=== PATIENT | male | born 1955 | race Caucasian/White ===

== ENCOUNTER 2023-05-08 21:26 | Outpatient (CLI) | payer MEDICARE, SELFPAY | END 2023-05-08 23:59 | LOC: LAB.DROPOF 21:28 | PROVIDERS: PCP Student in an Organized Health Care Education/Training Program; Visit Provider Student in an Organized Health Care Education/Training Program | DX: J02.9 Acute pharyngitis, unspecified (principal) | CPT/HCPCS: 87070 ==

== ENCOUNTER 2023-07-23 10:24 | Emergency (ER) | payer MEDICARE, SELFPAY ==
--- NOTE | 2023-07-23 10:26 | XR_ITS ---
FINAL REPORT CLINICAL HISTORY: fall FINDINGS: Left knee Three views were obtained. There is no acute fracture or dislocation. There is moderate narrowing of the medial compartment joint space. Small osteophytes are seen along the undersurface of the patella. There is a moderate to large joint effusion. IMPRESSION: Degenerative changes as detailed above. Moderate to large joint effusion. Reviewed, Interpreted and Dictated by Ronny Peter MD Transcribed by Nikki Sanford Authenticated and [facility]
[2023-07-23 11:35] VITALS: BP 141/83; PULSE 89; RESP 19; TEMP 36.7; O2SAT 98; BMI 35.6
--- NOTE | 2023-07-23 11:53 | EXP.UTC ---
Discharge Plan Disposition Patient Disposition: Home, Self-Care Condition: Good Prescriptions Prescriptions: No Action atorvastatin 80 mg tablet 80 mg PO DAILY Farxiga 10 mg tablet 10 mg PO DAILY carvedilol 12.5 mg tablet 12.5 mg PO BID metformin 1,000 mg tablet 1,000 mg PO BID Eliquis 5 mg tablet 5 mg PO DAILY Entresto 24-26 mg tablet 1 tab PO BID furosemide 20 mg tablet 20 mg PO DAILY dofetilide [Tikosyn] 125 mcg Capsule 125 mcg PO Q12H aspirin 81 mg Tablet,Chewable 81 mg PO DAILY Referrals Follow up/Referrals: Teo Yoo MD [Primary Care Provider] - See instructions Art Power DO [Staff Physician] - See instructions (Call office for appointment) Activity Restrictions/Add. Instructions Additional Instructions/Restrictions: *weight bearing as tolerated *RICE, Rest the extremity, Ice 15-20 minutes 3-4 times daily, Compress- wear the topher wrap as discussed as much as possible to help reduce swelling and pain, Elevate the extremity when at rest *Topher wrap is for support and help control swelling, use it except in the shower. Be sure that is not to tight but not to loose either *Elevate when resting? *Tylenol if you can take it for pain Immediately follow up with your family doctor for new or worsening of symptoms, or no noticeable improvement over the next 3-5 days Call Orthopedic office and make appointment Clinical Impressions Clinical Impression: Effusion of knee Instructions Patient Instructions: DI for Knee Effusion, How to Apply an Topher Wrap Discharge ED Provider: Shelbie Lizarraga [facility] General Stated complaint: AO-Pain and swelling in L knee Mode of Arrival: Ambulatory Source of Information: Patient and Spouse Limitations: No Limitations Time Seen by Provider: 07/23/23 11:40 Description of Symptoms (Recalled from Triage Doc. by RN): PATIENT C/O INJURY TO LEFT KNEE AFTER FALLING 2 DAYS AGO HEENT Symptoms (Recalled from RN notes): No Resp Symptoms (Recalled from RN notes): No Skin Symptoms (Recalled from RN notes): No MS Symptoms (Recalled from RN notes): Yes Functional Status (Recalled from RN notes): WNL History of Present Illness Provider Complaint: Patient states that he was stacking rocks on a rock wall a couple days ago when one of the rocks he was standing on rolled and he fell and twisted his left knee States since then he has been having pain and swelling in the knee so today when it wasnt any better he came in to get it checked Related Data Home Medications Medication Instructions Recorded Confirmed apixaban 5 mg tablet (Eliquis) 5 mg PO DAILY 05/08/23 07/23/23 atorvastatin 80 mg tablet 80 mg PO DAILY 05/08/23 07/23/23 carvedilol 12.5 mg tablet 12.5 mg PO BID 05/08/23 07/23/23 dapagliflozin propanediol 10 mg 10 mg PO DAILY 05/08/23 07/23/23 tablet (Farxiga) furosemide 20 mg tablet 20 mg PO DAILY 05/08/23 07/23/23 metformin 1,000 mg tablet 1,000 mg PO BID 05/08/23 07/23/23 sacubitril 24 mg-valsartan 26 mg 1 tab PO BID 05/08/23 07/23/23 tablet (Entresto) aspirin 81 mg chewable tablet 81 mg PO DAILY 07/23/23 07/23/23 dofetilide 125 mcg capsule 125 mcg PO Q12H 07/23/23 07/23/23 (Tikosyn) Allergies Allergy/AdvReac Type Severity Reaction Status Date / Time No Known Allergies Allergy Verified 05/08/23 11:27 Worker's Comp Is this a Worker's Comp case?: No [facility] Disclaimer: The information contained in this section may have been updated after the patient was seen, as this information can be updated by other users. Medical History (Updated 07/23/23 @ 11:59 by Shelbie Lizarraga APRN) Hyperlipidemia Hypertension Surgical History (Updated 05/08/23 @ 11:29 by Tiam Owens) No significant past surgical history Family History (Updated 05/08/23 @ 11:29 by Tima Owens) Other No significant family history Social History (Updated 05/08/23 @ 11:30 by Tima Owens) Smoking Status: Unknown if ever smoked alcohol intake: never current occupational status: retired Travel in the last 8 weeks: None ROS Obtained: Yes All systems reviewed & no additional complaints except as documented and Yes Systems reviewed as appropriate & no additional complaints except as documented Constitutional Constitutional: Reports system reviewed and no additional complaints, except as documented and Reports as per HPI ENT Ears, Nose, Mouth, and Throat: Reports system reviewed and no additional complaints, except as documented and Reports as per HPI Cardiovascular Cardiovascular: Reports system reviewed and no additional complaints, except as documented and Reports as per HPI Respiratory Respiratory: Reports system reviewed and no additional complaints, except as documented and Reports as per HPI Musculoskeletal Musculoskeletal: Reports system reviewed and no additional complaints, except as documented, Reports as per HPI and Reports other Comments: Pain and swelling in left knee Physical Exam General General appearance: alert and in no apparent distress ENT ENT exam: Present mucous membranes moist Respiratory Respiratory exam: Present normal lung sounds bilaterally; Absent respiratory distress or wheezes Cardiovascular Cardiovascular exam: Present regular rate, normal rhythm and normal heart sounds Expanded Lower Extremity Exam Left: Knee exam: Present tenderness and swelling; Absent abrasion, laceration, ecchymosis or erythema Lower leg exam: Present normal inspection Ankle exam: Present normal inspection Gait: observed and limited by pain Neurological Exam Neurological exam: Present alert, oriented X3 and normal gait Medical Decision Making Alphonso Inquiry Pt receiving controlled substance: No Alphonso was queried for this patient: No Vital Signs: 07/23/23 11:35 Temperature 98.0 F Temperature Source Oral Pulse Rate [Left Brachial] 89 Respiratory Rate 19 Blood Pressure [Left Arm] 141/83 H Blood Pressure Mean [Left Arm] 102 Blood Pressure Source [Left Arm] Automatic Cuff Blood Pressure Position [Left Arm] Sitting 02 Sat by Pulse Oximetry 98 Oxygen Delivery Method Room Air Orders (Tests/Meds): ORDERS Category Date Time Status XR knee LT 3V Stat Exams 07/23/23 10:26 Taken Radiology Data #1: Image(s): Knee Image Reviewed: Yes I have reviewed radiologist's interpretation no acute fracture or dislocation, moderate to large joint effusion
[2023-07-23 11:58] VITALS: BP 141/83; PULSE 89; RESP 19; TEMP 36.7; O2SAT 98
== END 2023-07-23 12:01 | disposition home or self-care (01) ==
PROVIDERS: Emergency Provider Nurse Practitioner; PCP Pediatrics
DX: M25.562 Pain in left knee (principal); M25.462 Effusion, left knee; I10 Essential (primary) hypertension; E78.5 Hyperlipidemia, unspecified; W01.10XA Fall on same level from slipping, tripping and stumbling with subsequent striking against unspecified object, initial encounter
CPT/HCPCS: 73562; 99204; 99212; G0463

== ENCOUNTER 2024-04-14 11:39 | Outpatient (CLI) | payer MEDICARE, SELFPAY ==
[2024-04-14 17:56] LABS: Coronavirus 19, PCR Not Detected (NotDetected); Human Rhinovirus Not Detected (NotDetected); Influenza A, PCR Not Detected (NotDetected); Influenza B, PCR Not Detected (NotDetected); Respiratory Syncytial Virus Not Detected (NotDetected)
== END 2024-04-14 23:59 | disposition home or self-care (01) ==
LOC: LAB.DROPOF 04-16 09:53
PROVIDERS: PCP Nurse Practitioner Family; Visit Provider Nurse Practitioner Family
DX: Z20.828 Contact with and (suspected) exposure to other viral communicable diseases (principal)
CPT/HCPCS: 87631

== ENCOUNTER 2024-12-23 17:00 | Outpatient (RCR) | payer MEDICARE, SELFPAY | END 2024-12-28 23:59 | disposition home or self-care (01) | LOC: PT 17:00 | PROVIDERS: PCP Nurse Practitioner Family; Visit Provider Physician Assistant | DX: Z47.89 Encounter for other orthopedic aftercare (principal); Z96.652 Presence of left artificial knee joint | CPT/HCPCS: 97110; 97162 ==

== ENCOUNTER 2025-02-02 13:49 | Outpatient (CLI) | payer MEDICARE, SELFPAY ==
--- OUTSIDE RECORDS SUMMARY | 2024-12-01 03:00 | XMS_ITS | Encounter Summary ---
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 Name Role Phone Teo Yoo MD Primary Care Provider [phone] Reason for Visit * Reason Comments Pacemaker /ICD Home Monitoring Encounter Details Date Type Department Care Team (Late st Contact Info) Description 12/01/2024 3:00 AM EDT Clinical Support [facility] Electrophysiology [address] [place] [address] Kendall Malik MD [address] [facility] [address] [place] [address] Encounter for adjustment or management of cardiac device (Primary Dx); Chronic systolic congestive heart failure (HCC); Ischemic cardiomyopathy; PAF (paroxysmal atrial fibrillation) (HCC); AICD (automatic cardioverter/defibr illator) present Social History Tobacco Use Types Packs/Day Years Used Date Smoking Tobacco: Never Smokeless Tobacco: Never Alcohol Use Standard Drinks/Week Comments Not Currently 0 (1 standard drink = 0.6 oz pur e alcohol) PRAPARE - Transportation Answer Date Re corded In the past 12 months, has l ack of transportation kept you from medical appointments or from getting medications? No 05/15/2023 Lack of Transportation (Non-Medical) Not on file 05/15/2023 Utilities Answer Date Recorded In the past 12 months, has t he electric, gas, oil, or water company threatened to shut off services in your home? No 10/06/2024 Interpersonal Safety Answer Date Record ed How often does anyone, howard jiménez family and friends, physically hurt you? Never 10/06/2024 How often does anyone, howard jiménez family and friends, insult or talk down to you? Never 10/06/2024 How often does anyone, howard jiménez family and friends, threaten you with harm? Never 10/06/2024 How often does anyone, howard jiménez family and friends, scream or curse at you? Never 10/06/2024 Housing Stability Answer Date Recorded What is your living situation today? I have a [facility] place to live 10/06/[address] you li ve. Do you have problems with any of the following? None of the above 10/06/2024 Food Insecurity Answer Date Recorded Within the past 12 months, y ou worried that your food would run out before you got money to buy more. Never true 10/06/2024 Within the past 12 months, will he food you bought just didn't last and you didn't have money to get more. Never true 10/06/2024 Transportation Needs Answer Date Record ed In the past 12 months, has l ack of reliable transportation kept you from medical appointments, meetings, work or from getting things needed for daily living? No 10/06/2024 Financial Resource Strain Answer Date R ecorded How hard is it for you to pa y for the very basics like food, housing, medical care, and heating? Would you say it is: Not hard at all 10/06/2024 Employment Answer Date Recorded Do you want help finding or keeping work or a job? I do not need or want help 10/06/2024 Family and Community Support Answer Arvin e Recorded If for any reason you need h elp with day-to-day activities such as bathing, preparing meals, shopping, managing finances, etc., do you get the help you need? I don't need any help 10/06/2024 Feeling Lonely or Isolated 0 10/06 Educational Attainment Answer Date Ok rded Do you speak a language other than [place] at [facility]? No 10/06/2024 Do you want help with school or training? For example, starting or completing job training or getting a high school diploma, GED or equivalent. No 10/06/2024 Physical Activity Answer Date Recorded Number of minutes of exercise per week 0 10/06/2024 Substance Use Answer Date Recorded How many times in the past y ear have you used prescription drugs for non-medical reasons? Never 10/06/2024 How many times in the past year have you used [place] legal drugs? Never 10/06/2024 Mental Health Answer Date Recorded Calculation of above two rows 0 Sex and Gender Information Value Date Recorded Sex Assigned at Not on file Legal Sex Male 1:10 PM CDT Gender Identity Not on file Sexual Orientation Not on file documented as of this encounter Plan of Treatment Upcoming Encounters Date Type Department Care Team (Late st Contact Info) Description 02/08/2025 1:45 PM EST Office Visit [facility] Cardiology [address] [place], [place] [phone] Christina Almonte MD [address] [place], [place] [phone] 04/05/2025 12:30 PM EST Office Visit [facility] Electrophysiology [address] [place], [place] [phone] Kendall Malik MD [address] [place] [address] [address] [place] [address] documented as of this encounter Visit Diagnoses Diagnosis Encounter for adjustment or management of cardiac device- Primary Chronic systolic congestive heart failure (HCC) Ischemic cardiomyopathy Other specified forms of chronic ischemic heart disease PAF (paroxysmal atrial fibrillation) ([facility]) Atrial fibrillation AICD (automatic cardioverter/defibrillator) present Automatic implantable cardiac defibrillator in situ PAF (paroxysmal atrial fibrillation) ([facility])- Primary Atrial fibrillation Ischemic cardiomyopathy Other specified forms of chronic ischemic heart disease Primary hypertension Unspecified essential hypertension CVA (cerebral vascular accident) ([facility]) Unspecified cerebral artery occlusion with cerebral infarction Chronic systolic congestive heart failure (HCC) CAD (coronary artery disease) Coronary atherosclerosis of unspecified type of vessel, [place] or graft Type 2 diabetes mellitus ([facility]) QT prolongation History of DVT (deep vein thrombosis) AICD (automatic cardioverter/defibrillator) present Automatic implantable cardiac defibrillator in situ documented in this encounter Care Teams Knurling Machine Operator Relationship Specialty Start Date End Date Teo Yoo MD [address] [place] [address] [address] [place] [address] PCP - General General Internal Medicine 02/06/22 documented as of this encounter
--- OUTSIDE RECORDS SUMMARY | 2025-01-28 10:07 | XMS_ITS | Continuity of Care Document ---
Author Organization [facility] Phone Care Team Providers Care Front Man Name Role Phone AKBAR SANTACRUZ Admitting AKBAR SANTACRUZ Primary Attending [place] MO[place] Primary Care [place] Unavailable ALLERGIES AND ADVERSE REACTIONS ALLERGIES AND ADVERSE REACTIONS Code System Allergy Substance Adverse Reaction Date Reaction (Severity) Comment Status Reported By Updated By No Known Allergies [id number] on January 25, 2025 11:01:51 PM UTC ASSESSMENTS Blurring of visual image ; FAMILY HISTORY RELATION: Father Status: Cause of : Unknown Age at : Unknown SNOMED-CT Diagnosis Age At Onset [id number] Heart disease RELATION: Mother Status: Cause of : Unknown Age at : Unknown SNOMED-CT Diagnosis Age At Onset [id number] Heart disease PROBLEMS PATIENT PROBLEMS Code Description/Comments Category Status Upda olman By [id number] Blurring of visual image active [id number] on January 26, 2025 10:33:00 AM UTC RESULTS Patient: BALWINDER Camara Date of : 1955 LABORATORY RESULTS ORDER 100: GLUCOSE BEDSIDE T ESTING (LOINC: 66060-8) ORDER DATE: January 25, 2025 4:31:00 PM UTC Specimen Source: WHOLE BLOOD Specimen Type: Whole blood s ample PERFORMING LAB: [address] [id number] Result Comment: January 25, 2025 4:36:00 PM UTC Test performed by: [id number] ; Instrument: [id number] Final Result Date: January 25, 2025 4:36:00 PM UTC LOINC TEST FLAG RESULT [place] [address]-7 Glucose [Mass/volume] in Capillary blood by Glucometer N 97 mg/dl 70 mg/dl - 105 mg/dl January 25, 2025 4:36:00 PM UTC ORDER 200: CBC AUTO W DIFF ( LOINC: 86163-3) ORDER DATE: January 25, 2025 4:36:00 PM UTC Specimen Source: EDTA Specimen Type: Blood specime n with EDTA PERFORMING LAB: [address] [id number] Result Comment: Final Result Date: January 25, 2025 4:45:00 PM UTC (TECH: ADB) LOINC TEST FLAG RESULT REFERENCE RANGE UPDA OLMAN BY 6690-2 Leukocytes [#/volume] in Blood by Automated count N 9.0 K/ul 4.0 K/ul - 10.5 K/ul January 25, 2025 4:45:00 PM UTC (TECH: ADB) 789-8 Erythrocytes [#/volume] in Blood by Automated count N 5.2 M/mm3 4.7 M/mm3 - 6.1 M/mm3 January 25, 2025 4:45:00 PM UTC (TECH: ADB) 718-7 Hemoglobin [Mass/volume] in Blood N 15.2 gm/dl 13.5 gm/dl - 18.0 gm/dl January 25, 2025 4:45:00 PM UTC (TECH: ADB) 41261-5 Hematocrit [Volume Fraction] of Blood N 47.9 % 42.0 % - 52.0 % January 25, 2025 4:45:00 PM UTC (TECH: ADB) 787-2 Erythrocyte mean corpuscular volume [Entitic volume] by Automated count N 92.5 fl 78 fl - 100 fl January 25, 2025 4:45:00 PM UTC (TECH: ADB) 785-6 Erythrocyte mean corpuscular hemoglobin [Entitic mass] by Automated count N 29.3 pg 27 pg - 31 pg January 25, 2025 4:45:00 PM UTC (TECH: ADB) 786-4 Erythrocyte mean corpuscular hemoglobin concentration [Mass/volume] by Automated count L 31.7 g/dl 32 g/dl - 36 g/dl January 25, 2025 4:45:00 PM UTC (TECH: ADB) 84189-7 Erythrocyte distribution width [Ratio] N 12.7 % 11.5 % - 14.0 % January 25, 2025 4:45:00 PM UTC (TECH: ADB) 777-3 Platelets [#/volume] in Blood by Automated count N 184 K/ul 150 K/ul - 450 K/ul January 25, 2025 4:45:00 PM UTC (TECH: ADB) 86779-7 Platelet mean volume [Entitic volume] in Blood by Automated count H 10.0 fl 6 fl - 9.5 fl January 25, 2025 4:45:00 PM UTC (TECH: ADB) 09152-7 Neutrophils/100 leukocytes in Blood H 75.0 % 43 % - 65 % January 25, 2025 4:45:00 PM UTC (TECH: ADB) 736-9 Lymphocytes/100 leukocytes in Blood by Automated count L 15.3 % 20.5 % - 45.5 % January 25, 2025 4:45:00 PM UTC (TECH: ADB) 5905-5 Monocytes/100 leukocytes in Blood by Automated count N 7.8 % 5.5 % - 11.7 % January 25, 2025 4:45:00 PM UTC (TECH: ADB) 713-8 Eosinophils/100 leukocytes in Blood by Automated count N 1.3 % 0.9 % - 2.9 % January 25, 2025 4:45:00 PM UTC (TECH: ADB) 706-2 Basophils/100 leukocytes in Blood by Automated count N 0.3 % 0.2 % - 1.0 % January 25, 2025 4:45:00 PM UTC (TECH: ADB) 07352-6 Immature granulocytes/100 leukocytes in Blood by Automated count N 0.3 % 0.0 % - 0.8 % January 25, 2025 4:45:00 PM UTC (TECH: ADB) 63730-6 Nucleated cells [#/volume] in Blood N 0.0 % January 25, 2025 4:45:00 PM UTC (TECH: ADB) 07936-0 Neutrophils [#/volume] in Blood H 6.8 K/uL 2.2 K/uL - 4.8 K/uL January 25, 2025 4:45:00 PM UTC (TECH: ADB) 731-0 Lymphocytes [#/volume] in Blood by Automated count N 1.4 CELL/MCL 1.3 CELL/MCL - 2.9 CELL/MCL January 25, 2025 4:45:00 PM UTC (TECH: ADB) 742-7 Monocytes [#/volume] in Blood by Automated count N 0.7 CELL/MCL 0.3 CELL/MCL - 0.8 CELL/MCL January 25, 2025 4:45:00 PM UTC (TECH: ADB) 711-2 Eosinophils [#/volume] in Blood by Automated count N 0.1 CELL/MCL 0 CELL/MCL - 0.2 CELL/MCL January 25, 2025 4:45:00 PM UTC (TECH: ADB) 704-7 Basophils [#/volume] in Blood by Automated count N 0.0 CELL/MCL 0.0 CELL/MCL - 1.0 CELL/MCL January 25, 2025 4:45:00 PM UTC (TECH: ADB) 32185-1 Immature granulocytes [#/volume] in Blood N 0.03 K/ul January 25, 2025 4:45:00 PM UTC (TECH: ADB) 49817-0 Nucleated cells [#/volume] in Blood N 0.00 K/uL January 25, 2025 4:45:00 PM UTC (TECH: ADB) 89707-2 Manual Differential panel - Blood N NO January 25, 2025 4:45:00 PM UTC (TECH: ADB) ORDER 300: COMP METABOLIC PA BRITTNEY (LOINC: 87895-1) ORDER DATE: January 25, 2025 4:36:00 PM UTC Specimen Source: PLASMA Specimen Type: Plasma specim en PERFORMING LAB: [address] [id number] Result Comment: Final Result Date: January 25, 2025 5:01:00 PM UTC (TECH: TGD) LOINC TEST FLAG RESULT REFERENCE RANGE UPDA OLMAN BY 2951-2 Sodium [Moles/volume ] in Serum or Plasma N 140 mmol/L 136 mmol/L - 145 mmol/L January 25, 2025 4:54:00 PM UTC (TECH: TGD) 2823-3 Potassium [Moles/volume] in Serum or Plasma N 4.6 mmol/L 3.6 mmol/L - 5.0 mmol/L January 25, 2025 4:54:00 PM UTC (TECH: TGD) 2075-0 Chloride [Moles/volume] in Serum or Plasma N 103 mmol/L 98 mmol/L - 107 mmol/L January 25, 2025 4:54:00 PM UTC (TECH: TGD) 2027-9 Carbon dioxide, tota l [Moles/volume] in Serum or Plasma N 30.0 mmol/L 21.0 mmol/L - 32.0 mmol/L January 25, 2025 4:54:00 PM UTC (TECH: TGD) 00117-9 Anion gap in Blood N 11.6 O ct2024 4:54:00 PM UTC (TECH: TGD) 2345-7 Glucose [Mass/volume ] in Serum or Plasma N 101 mg/dl 70 mg/dl - 120 mg/dl January 25, 2025 4:54:00 PM UTC (TECH: TGD) 6299-2 Urea nitrogen [Mass/volume] in Blood N 15 mg/dL 7 mg/dL - 18 mg/dL January 25, 2025 4:54:00 PM UTC (TECH: TGD) 09962-4 Creatinine [Moles/volume] in Blood N 0.8 mg/dL 0.6 mg/dL - 1.3 mg/dL January 25, 2025 4:54:00 PM UTC (TECH: TGD) 96977-6 Glomerular filtratio n rate/1.73 sq M.predicted by Creatinine-based formula (MDRD) N 95 mlpermin 60 mlpermin January 25, 2025 4:54:00 PM UTC (TECH: TGD) 85441-6 Osmolality of Serum or Plasma by calculated by sum of electrolytes N 292 mosm/kg 275 mosm/kg - 301 mosm/kg January 25, 2025 4:54:00 PM UTC (TECH: TGD) 6145-2 Protein [Mass/volume ] in Serum or Plasma N 7.3 g/dl 6.4 g/dl - 8.2 g/dl January 25, 2025 5:01:00 PM UTC (TECH: TGD) 1751-7 Albumin [Mass/volume ] in Serum or Plasma N 3.9 g/dl 3.4 g/dl - 5.0 g/dl January 25, 2025 5:01:00 PM UTC (TECH: TGD) 2336-6 Globulin [Mass/volum e] in Serum N 3.4 January 25, 2025 5:01:00 PM UTC (TECH: TGD) 1759-0 Albumin/Globulin [Ma ss Ratio] in Serum or Plasma N 1.1 0.7 - 2 January 25, 2025 5:01:00 PM UTC (TECH: TGD) 43766-1 Calcium [Mass/volume ] in Serum or Plasma N 9.2 mg/dl 8.5 mg/dl - 10.5 mg/dl January 25, 2025 4:54:00 PM UT (TECH: TGD) 1975-2 Bilirubin.total [Mass/volume] in Serum or Plasma N 0.90 mg/dL 0.10 mg/dL - 1.00 mg/dL January 25, 2025 5:01:00 PM UT (TECH: TGD) 1920-8 Aspartate aminotransferase [Enzymatic activity/volume] in Serum or Plasma N 16 U/L 0 U/L - 37 U/L January 25, 2025 5:01:00 PM UT (TECH: TGD) 1742-6 Alanine aminotransferase [Enzymatic activity/volume] in Serum or Plasma N 26 U/L 0 U/L - 65 U/L January 25, 2025 5:01:00 PM UT (TECH: TGD) 6768-6 Alkaline phosphatase [Enzymatic activity/volume] in Serum or Plasma N 71 U/L 46 U/L - 116 U/L January 25, 2025 5:01:00 PM UT (TECH: TGD) ORDER 400: PT PROTHROMBIN TI ME W INR (LOINC: 68478-1) ORDER DATE: January 25, 2025 4:36:00 PM UT Specimen Source: PLASMA Specimen Type: Plasma specim en PERFORMING LAB: [address] [id number] Result Comment: Final Result Date: January 25, 2025 5:07:00 PM UT (TECH: PP) LOINC TEST FLAG RESULT [place] [address]-2 INR in Platelet poor plasma or blood by Coagulation assay H 13.0 SECONDS 9.3 SECONDS - 11.4 SECONDS January 25, 2025 5:07:00 PM UTC (TECH: PP) 6301-6 INR in Platelet poor plasma by Coagulation assay H 1.3 Ratio 0.97 Ratio - 1.05 Ratio January 25, 2025 5:07:00 PM UTC (TECH: PP) ORDER 500: PTT PARTIAL THROM B TIME (LOINC: 3173-2) ORDER DATE: January 25, 2025 4:36:00 PM UTC Specimen Source: PLASMA Specimen Type: Plasma specim en PERFORMING LAB: [address] [id number] Result Comment: Final Result Date: January 25, 2025 5:07:00 PM UTC (TECH: PP) LOINC TEST FLAG RESULT REFERENCE RANGE UPDA OLMAN BY 3173-2 Activated partial thromboplastin time (aPTT) in Blood by Coagulation assay N 32.5 SECONDS 24.5 SECONDS - 32.8 SECONDS January 25, 2025 5:07:00 PM UTC (TECH: PP) ORDER 1000: URINALYSIS REFLE X MICROSCOPIC (LOINC: 42026-9) ORDER DATE: January 25, 2025 4:36:00 PM UTC Specimen Source: URINE Specimen Type: Urine specime n PERFORMING LAB: [address] [id number] Result Comment: Final Result Date: January 25, 2025 7:26:00 PM UTC (TECH: ADB) LOINC TEST FLAG RESULT REFERENCE RANGE UPDA OLMAN BY 5778-6 Color of Urine N YELLOW YELLOW Octob 2024 7:26:00 PM UTC (TECH: ADB) 5767-9 Appearance of Urine N CLEAR CLEAR January 25, 2025 7:26:00 PM UTC (TECH: ADB) 5792-7 Glucose [Mass/volume] in Urine by Test strip 1000 NORMAL January 25, 2025 7:26:00 PM UTC (TECH: ADB) 61979-0 Bilirubin.total [Mass/volume] in Urine by Automated test strip N NEGATIVE NEGATIVE January 25, 2025 7:26:00 PM UTC (TECH: ADB) 5797-6 Ketones [Mass/volume] in Urine by Test strip N NEGATIVE NEGATIVE January 25, 2025 7:26:00 PM UTC (TECH: ADB) 2965-2 Specific gravity of Urine L 1.015 1.016 - 1.022 January 25, 2025 7:26:00 PM UTC (TECH: ADB) 34982-9 Erythrocytes [#/volume] in Urine by Automated test strip N NEGATIVE NEGATIVE January 25, 2025 7:26:00 PM UTC (TECH: ADB) 77274-2 pH of Urine by Automated test strip N 5 5 - 9 January 25, 2025 7:26:00 PM UTC (TECH: ADB) 61588-9 Protein [Presence] in Urine by Test strip N TNP NEGATIVE January 25, 2025 7:26:00 PM UTC (TECH: ADB) 21081-2 Urobilinogen [Mass/volume] in Urine by Automated test strip N norm NORMAL January 25, 2025 7:26:00 PM UTC (TECH: ADB) 74018-6 Nitrate [Presence] in Urine N NEGATIVE NEGATIVE January 25, 2025 7:26:00 PM UTC (TECH: ADB) 61594-2 Leukocytes [#/volume] in Urine by Test strip N NEGATIVE NEGATIVE January 25, 2025 7:26:00 PM UTC (TECH: ADB) 66161-4 Urinalysis dipstick W Reflex Culture panel - Urine N NO January 25, 2025 7:26:00 PM UTC (TECH: ADB) 52258-0 Erythrocytes [#/area] in Urine sediment by Microscopy high power field N NONE SEEN NONE SEEN January 25, 2025 7:26:00 PM UTC (TECH: ADB) 5821-4 Leukocytes [#/area] in Urine sediment by Microscopy high power field N NONE SEEN NONE SEEN January 25, 2025 7:26:00 PM UTC (TECH: ADB) 77743-4 Epithelial cells.squamous [#/area] in Urine sediment by Microscopy high power field N 1-5 NONE SEEN January 25, 2025 7:26:00 PM UTC (TECH: ADB) ORDER 1400: SED RATE (LOINC: 4537-7) ORDER DATE: January 25, 2025 6:42:00 PM UTC Specimen Source: EDTA Specimen Type: Blood specime n with EDTA PERFORMING LAB: [address] [id number] Result Comment: Final Result Date: January 25, 2025 8:03:00 PM UTC (TECH: ADB) LOINC TEST FLAG RESULT REFERENCE RANGE UPDA OLMAN BY 4537-7 Erythrocyte sedimentation rate by Westergren method N 2 0 - 15 January 25 8:03:00 PM UTC (TECH: ADB) ORDER 1500: C-REACTIVE PROTE IN CRP (LOINC: 1987-08) ORDER DATE: January 25, 2025 6:42:00 PM UTC Specimen Source: PLASMA Specimen Type: Plasma specim en PERFORMING LAB: [address] [id number] Result Comment: Final Result Date: January 25, 2025 7:14:00 PM UTC (TECH: KAC) LOINC TEST FLAG RESULT REFERENCE RANGE UPDA OLMAN BY 1987- C reactive protein [Mass/volume] in Serum or Plasma N <0.2 mg/dL 0.05 mg/dL - 0.300 mg/dL January 25, 2025 7:14:00 PM UTC (TECH: KAC) ORDER 2800: CBC AUTO W DIFF (LOINC: 85687-8) ORDER DATE: January 25, 2025 8:33:00 PM UTC Specimen Source: EDTA Specimen Type: Blood specime n with EDTA PERFORMING LAB: [address] [id number] Result Comment: Final Result Date: January 26, 2025 9:16:00 AM UTC (TECH: AAC) LOINC TEST FLAG RESULT REFERENCE RANGE UPDA OLMAN BY 6690-2 Leukocytes [#/volume] in Blood by Automated count N 5.5 K/ul 4.0 K/ul - 10.5 K/ul January 26, 2025 9:16:00 AM UTC (TECH: AAC) 789-8 Erythrocytes [#/volume] in Blood by Automated count N 5.0 M/mm3 4.7 M/mm3 - 6.1 M/mm3 January 26, 2025 9:16:00 AM UTC (TECH: AAC) 718-7 Hemoglobin [Mass/volume] in Blood N 14.5 gm/dl 13.5 gm/dl - 18.0 gm/dl January 26, 2025 9:16:00 AM UTC (TECH: AAC) 33843-6 Hematocrit [Volume Fraction] of Blood N 45.2 % 42.0 % - 52.0 % January 26, 2025 9:16:00 AM UTC (TECH: AAC) 787-2 Erythrocyte mean corpuscular volume [Entitic volume] by Automated count N 91.1 fl 78 fl - 100 fl January 26, 2025 9:16:00 AM UTC (TECH: AAC) 785-6 Erythrocyte mean corpuscular hemoglobin [Entitic mass] by Automated count N 29.2 pg 27 pg - 31 pg January 26, 2025 9:16:00 AM UTC (TECH: AAC) 786-4 Erythrocyte mean corpuscular hemoglobin concentration [Mass/volume] by Automated count N 32.1 g/dl 32 g/dl - 36 g/dl January 26, 2025 9:16:00 AM UTC (TECH: AAC) 25270-0 Erythrocyte distribution width [Ratio] N 12.9 % 11.5 % - 14.0 % January 26, 2025 9:16:00 AM UTC (TECH: AAC) 777-3 Platelets [#/volume] in Blood by Automated count N 162 K/ul 150 K/ul - 450 K/ul January 26, 2025 9:16:00 AM UTC (TECH: AAC) 78730-3 Platelet mean volume [Entitic volume] in Blood by Automated count H 10.2 fl 6 fl - 9.5 fl January 26, 2025 9:16:00 AM UTC (TECH: AAC) 40666-2 Neutrophils/100 leukocytes in Blood N 61.1 % 43 % - 65 % January 26, 2025 9:16:00 AM UTC (TECH: AAC) 736-9 Lymphocytes/100 leukocytes in Blood by Automated count N 25.3 % 20.5 % - 45.5 % January 26, 2025 9:16:00 AM UTC (TECH: AAC) 5905-5 Monocytes/100 leukocytes in Blood by Automated count N 10.1 % 5.5 % - 11.7 % January 26, 2025 9:16:00 AM UTC (TECH: AAC) 713-8 Eosinophils/100 leukocytes in Blood by Automated count N 2.9 % 0.9 % - 2.9 % January 26, 2025 9:16:00 AM UTC (TECH: AAC) 706-2 Basophils/100 leukocytes in Blood by Automated count N 0.4 % 0.2 % - 1.0 % January 26, 2025 9:16:00 AM UTC (TECH: AAC) 19364-6 Immature granulocytes/100 leukocytes in Blood by Automated count N 0.2 % 0.0 % - 0.8 % January 26, 2025 9:16:00 AM UTC (TECH: AAC) 05860-1 Nucleated cells [#/volume] in Blood N 0.0 % January 26, 2025 9:16:00 AM UTC (TECH: AAC) 00398-5 Neutrophils [#/volume] in Blood N 3.4 K/uL 2.2 K/uL - 4.8 K/uL January 26, 2025 9:16:00 AM UTC (TECH: AAC) 731-0 Lymphocytes [#/volume] in Blood by Automated count N 1.4 CELL/MCL 1.3 CELL/MCL - 2.9 CELL/MCL January 26, 2025 9:16:00 AM UTC (TECH: AAC) 742-7 Monocytes [#/volume] in Blood by Automated count N 0.6 CELL/MCL 0.3 CELL/MCL - 0.8 CELL/MCL January 26, 2025 9:16:00 AM UTC (TECH: AAC) 711-2 Eosinophils [#/volume] in Blood by Automated count N 0.2 CELL/MCL 0 CELL/MCL - 0.2 CELL/MCL January 26, 2025 9:16:00 AM UTC (TECH: AAC) 704-7 Basophils [#/volume] in Blood by Automated count N 0.0 CELL/MCL 0.0 CELL/MCL - 1.0 CELL/MCL January 26, 2025 9:16:00 AM UTC (TECH: AAC) 16330-5 Immature granulocytes [#/volume] in Blood N 0.01 K/ul January 26, 2025 9:16:00 AM UTC (TECH: AAC) 93591-0 Nucleated cells [#/volume] in Blood N 0.00 K/uL January 26, 2025 9:16:00 AM UTC (TECH: AAC) 20667-9 Manual Differential panel - Blood N NO January 26, 2025 9:16:00 AM UT (TECH: AAC) ORDER 2900: COMP METABOLIC P CHEYANNE (LOINC: 85649-1) ORDER DATE: January 25, 2025 8:33:00 PM UT Specimen Source: PLASMA Specimen Type: Plasma specim en PERFORMING LAB: [address] [id number] Result Comment: Final Result Date: January 26, 2025 9:32:00 AM UT (TECH: SHG) LOINC TEST FLAG RESULT REFERENCE RANGE UPDA OLMAN BY 2951-2 Sodium [Moles/volume ] in Serum or Plasma N 139 mmol/L 136 mmol/L - 145 mmol/L January 26, 2025 9:32:00 AM UT (TECH: SHG) 2823-3 Potassium [Moles/volume] in Serum or Plasma N 3.7 mmol/L 3.6 mmol/L - 5.0 mmol/L January 26, 2025 9:32:00 AM UT (TECH: SHG) 5-0 Chloride [Moles/volu me] in Serum or Plasma N 103 mmol/L 98 mmol/L - 107 mmol/L January 26, 2025 9:32:00 AM UT (TECH: SHG) 2027-9 Carbon dioxide, tota l [Moles/volume] in Serum or Plasma N 25.5 mmol/L 21.0 mmol/L - 32.0 mmol/L January 26, 2025 9:32:00 AM UT (TECH: SHG) 76534-5 Anion gap in Blood N 14.2 O ct2024 9:32:00 AM UT (TECH: SHG) 2345-7 Glucose [Mass/volume ] in Serum or Plasma N 106 mg/dl 70 mg/dl - 120 mg/dl January 26, 2025 9:32:00 AM UT (TECH: SHG) 6299-2 Urea nitrogen [Mass/volume] in Blood N 16 mg/dL 7 mg/dL - 18 mg/dL January 26, 2025 9:32:00 AM UT (TECH: SHG) 72841-6 Creatinine [Moles/volume] in Blood N 0.7 mg/dL 0.6 mg/dL - 1.3 mg/dL January 26, 2025 9:32:00 AM [facility] (TECH: [employer]) 78826-5 Glomerular filtratio n rate/1.73 sq M.predicted by Creatinine-based formula (MDRD) N 99 mlpermin 60 mlpermin January 26, 2025 9:32:00 AM [facility] (TECH: [employer]) 53455-5 Osmolality of Serum or Plasma by calculated by sum of electrolytes N 291 mosm/kg 275 mosm/kg - 301 mosm/kg January 26, 2025 9:32:00 AM [facility] (TECH: [employer]) 2885-2 Protein [Mass/volume ] in Serum or Plasma N 6.8 g/dl 6.4 g/dl - 8.2 g/dl January 26, 2025 9:32:00 AM [facility] (TECH: [employer]) 1751-7 Albumin [Mass/volume ] in Serum or Plasma N 3.6 g/dl 3.4 g/dl - 5.0 g/dl January 26, 2025 9:32:00 AM [facility] (TECH: [employer]) 2336-6 Globulin [Mass/volum e] in Serum N 3.2 January 26, 2025 9:32:00 AM [facility] (TECH: [employer]) 1759-0 Albumin/Globulin [Ma ss Ratio] in Serum or Plasma N 1.1 0.7 - 2 January 26, 2025 9:32:00 AM [facility] ([place]: [employer]) 50250-3 Calcium [Mass/volume ] in Serum or Plasma N 9.2 mg/dl 8.5 mg/dl - 10.5 mg/dl January 26, 2025 9:32:00 AM [facility] (TECH: [employer]) 1975-2 Bilirubin.total [Mass/volume] in Serum or Plasma N 1.00 mg/dL 0.10 mg/dL - 1.00 mg/dL January 26, 2025 9:32:00 AM [facility] (TECH: [employer]) 1920-8 Aspartate aminotransferase [Enzymatic activity/volume] in Serum or Plasma N 14 U/L 0 U/L - 37 U/L January 26, 2025 9:32:00 AM [facility] (TECH: [employer]) 1742-6 Alanine aminotransferase [Enzymatic activity/volume] in Serum or Plasma N 23 U/L 0 U/L - 65 U/L January 26, 2025 9:32:00 AM [facility] (TECH: SHG) 6768-6 Alkaline phosphatase [Enzymatic activity/volume] in Serum or Plasma N 77 U/L 46 U/L - 116 U/L January 26, 2025 9:32:00 AM UTC (TECH: SHG) ORDER 3000: MAGNESIUM (LOINC : 36110-9) ORDER DATE: January 25, 2025 8:33:00 PM UTC Specimen Source: PLASMA Specimen Type: Plasma specim en PERFORMING LAB: [address] [id number] Result Comment: Final Result Date: January 26, 2025 9:32:00 AM UT (TECH: SHG) LOINC TEST FLAG [place] [address]-5 Magnesium [Mass/volume] in Serum or Plasma N 2.2 MG/DL 1.8 MG/DL - 2.4 MG/DL January 26, 2025 9:32:00 AM UT (TECH: SHG) ORDER 3100: LIPID PANEL (VANESSA NC: 37030-1) ORDER DATE: January 25, 2025 8:35:00 PM UTC Specimen Source: PLASMA Specimen Type: Plasma specim en PERFORMING LAB: [address] [id number] Result Comment: Final Result Date: January 25, 2025 9:43:00 PM UT (TECH: KAC) LOINC TEST FLAG RESULT REFERENCE RANGE UPDA OLMAN BY 2571-8 Triglyceride [Mass/volume] in Serum or Plasma N 61 mg/dl 30 mg/dl - 200 mg/dl January 25, 2025 9:43:00 PM UTC (TECH: KAC) 2093-3 Cholesterol [Mass/volume] in Serum or Plasma N 106 mg/dl 0 mg/dl - 200 mg/dl January 25, 2025 9:43:00 PM UTC (TECH: KAC) 23771-1 Cholesterol in HDL [Mass or Moles/volume] in Serum or Plasma N 47 mg/dL 40 mg/dL - 104 mg/dL January 25, 2025 9:43:00 PM UTC (TECH: KAC) 21993-1 Cholesterol in LDL [Mass/volume] in Serum or Plasma by calculation N 47 mg/dL 0 mg/dL - 130 mg/dL January 25, 2025 9:43:00 PM UTC (TECH: KAC) ORDER 3200: HEMOGLOBIN A1C ( LOINC: 4548-4) ORDER DATE: January 25, 2025 8:35:00 PM UTC Specimen Source: WHOLE BLOOD Specimen Type: Whole blood s ample PERFORMING LAB: [address] [id number] Result Comment: Final Result Date: January 25, 2025 9:43:00 PM UTC (TECH: KAC) LOINC TEST FLAG RESULT REFERENCE RANGE UPDA OLMAN BY 4548-4 Hemoglobin A1c/Hemoglobin.total in Blood H 6.2 % 3.8 % - 5.6 % January 25, 2025 9:43:00 PM UTC (TECH: KAC) ORDER 3300: THYROID STIMULAT ING HORMONE (LOINC: 3016-3) ORDER DATE: January 25, 2025 8:35:00 PM UTC Specimen Source: PLASMA Specimen Type: Plasma specim en PERFORMING LAB: [address] [id number] Result Comment: Final Result Date: January 25, 2025 9:54:00 PM UTC (TECH: KAC) LOINC TEST FLAG RESULT REFERENCE RANGE UPDA OLMAN BY 3016-3 Thyrotropin [Units/volume] in Serum or Plasma N 2.31 mIU/L 0.36 mIU/L - 3.74 mIU/L January 25, 2025 9:54:00 PM UTC (TECH: KAC) ORDER 3400: COMP METABOLIC P CHEYANNE (LOINC: 76555-6) ORDER DATE: January 25, 2025 10:59:00 PM UTC Specimen Source: PLASMA Specimen Type: Plasma specim en PERFORMING LAB: [address] [id number] Result Comment: Final Result Date: January 25, 2025 11:35:00 PM UTC (TECH: AY) LOINC TEST FLAG RESULT REFERENCE RANGE UPDA OLMAN BY 2951-2 Sodium [Moles/volume ] in Serum or Plasma N 140 mmol/L 136 mmol/L - 145 mmol/L January 25, 2025 11:28:00 PM UTC (TECH: AY) 2823-3 Potassium [Moles/volume] in Serum or Plasma N 4.2 mmol/L 3.6 mmol/L - 5.0 mmol/L January 25, 2025 11:28:00 PM [facility] (TECH: AY) 5-0 Chloride [Moles/volu me] in Serum or Plasma N 103 mmol/L 98 mmol/L - 107 mmol/L January 25, 2025 11:28:00 PM [facility] (TECH: AY) 2027-9 Carbon dioxide, tota l [Moles/volume] in Serum or Plasma N 29.8 mmol/L 21.0 mmol/L - 32.0 mmol/L January 25, 2025 11:28:00 PM [facility] (TECH: AY) 83234-3 Anion gap in Blood N 11.4 O [id number] 11:28:00 PM [facility] (TECH: AY) 2345-7 Glucose [Mass/volume ] in Serum or Plasma H 128 mg/dl 70 mg/dl - 120 mg/dl January 25, 2025 11:28:00 PM [facility] (TECH: AY) 6299-2 Urea nitrogen [Mass/volume] in Blood N 17 mg/dL 7 mg/dL - 18 mg/dL January 25, 2025 11:28:00 PM [facility] (TECH: AY) 45067-4 Creatinine [Moles/volume] in Blood N 0.8 mg/dL 0.6 mg/dL - 1.3 mg/dL January 25, 2025 11:28:00 PM [facility] (TECH: AY) 17265-0 Glomerular filtratio n rate/1.73 sq M.predicted by Creatinine-based formula (MDRD) N 95 mlpermin 60 mlpermin January 25, 2025 11:28:00 PM [facility] (TECH: AY) 89114-9 Osmolality of Serum or Plasma by calculated by sum of electrolytes N 294 mosm/kg 275 mosm/kg - 301 mosm/kg January 25, 2025 11:28:00 PM [facility] (TECH: AY) 2885-2 Protein [Mass/volume ] in Serum or Plasma N 6.8 g/dl 6.4 g/dl - 8.2 g/dl January 25, 2025 11:35:00 PM [facility] (TECH: AY) 1751-7 Albumin [Mass/volume ] in Serum or Plasma N 3.7 g/dl 3.4 g/dl - 5.0 g/dl January 25, 2025 11:35:00 PM [facility] (TECH: AY) 2336-6 Globulin [Mass/volum e] in Serum N 3.1 January 25, 2025 11:35:00 PM [facility] (TECH: AY) 1759-0 Albumin/Globulin [Ma ss Ratio] in Serum or Plasma N 1.2 0.7 - 2 January 25, 2025 11:35:00 PM [facility] (TECH: AY) 27506-6 Calcium [Mass/volume ] in Serum or Plasma N 8.9 mg/dl 8.5 mg/dl - 10.5 mg/dl January 25, 2025 11:28:00 PM [facility] (TECH: AY) 1975-2 Bilirubin.total [Mass/volume] in Serum or Plasma H 1.20 mg/dL 0.10 mg/dL - 1.00 mg/dL January 25, 2025 11:35:00 PM [facility] (TECH: AY) 1920-8 Aspartate aminotransferase [Enzymatic activity/volume] in Serum or Plasma N 15 U/L 0 U/L - 37 U/L January 25, 2025 11:35:00 PM [facility] (TECH: AY) 1742-6 Alanine aminotransferase [Enzymatic activity/volume] in Serum or Plasma N 24 U/L 0 U/L - 65 U/L January 25, 2025 11:35:00 PM [facility] (TECH: AY) 6768-6 Alkaline phosphatase [Enzymatic activity/volume] in Serum or Plasma N 77 U/L 46 U/L - 116 U/L January 25, 2025 11:35:00 PM [facility] (TECH: AY) ORDER 3500: MAGNESIUM (LOINC : 63340-4) ORDER DATE: January 25, 2025 10:59:00 PM [facility] Specimen Source: PLASMA Specimen Type: Plasma specim en PERFORMING LAB: [address] [id number] Result Comment: Final Result Date: January 25, 2025 11:35:00 PM UT (TECH: AY) LOINC TEST FLAG RESULT REFERENCE RANGE UPDA OLMAN BY Magnesium [Mass/volume] in Serum or Plasma N 2.0 MG/DL 1.8 MG/DL - 2.4 MG/DL January 25, 2025 11:35:00 PM UT (TECH: AY) ORDER 3600: TROPONIN I QUANT HIGH SENS. (LOINC: 96288-2) ORDER DATE: January 25, 2025 11:00:00 PM UTC Specimen Source: PLASMA Specimen Type: Plasma specim en PERFORMING LAB: [address] [id number] Result Comment: Final Result Date: January 25, 2025 11:35:00 PM UTC (TECH: AY) LOINC TEST [place] [address]-0 Troponin I.cardiac [Mass/volume] in Serum or Plasma N 22 ng/L 0 ng/L - 76 ng/L January 25 11:35:00 PM UTC (TECH: AY) ORDER 3900: GLUCOSE BEDSIDE TESTING (LOINC: 64743-0) ORDER DATE: January 26, 2025 12:32:00 AM UTC Specimen Source: WHOLE BLOOD Specimen Type: Whole blood s ample PERFORMING LAB: [address] [id number] Result Comment: January 26, 2025 12:38:00 AM UTC Test performed by: [id number] ; Instrument: [id number] Final Result Date: January 26, 2025 12:38:00 AM UTC LOINC TEST FLAG [place] [address]-7 Glucose [Mass/volume] in Capillary blood by Glucometer H 138 mg/dl 70 mg/dl - 105 mg/dl January 26, 2025 12:38:00 AM UTC ORDER 4400: GLUCOSE BEDSIDE TESTING (LOINC: 26496-8) ORDER DATE: January 26, 2025 10:08:00 AM UTC Specimen Source: WHOLE BLOOD Specimen Type: Whole blood s ample PERFORMING LAB: [address] [id number] Result Comment: January 26, 2025 10:38:00 AM UTC Test performed by: [id number] ; Instrument: [id number] Final Result Date: January 26, 2025 10:38:00 AM UTC LOINC TEST FLAG [place] [address]-2 Glucose [Mass/volume ] in Capillary blood by Glucometer N 105 mg/dl 70 mg/dl - 105 mg/dl January 26, 2025 10:38:00 AM UTC LABORATORY NARRATIVE RESULTS Information is not available RADIOLOGY RESULTS ORDER 700: CHEST PORTABLE (L OINC: 70801-3) ORDER DATE: January 25, 2025 4:36:00 PM UT PERFORMING LAB: [address] [id number] Final Result Date: January 062024 5:34:19 PM [facility] [address] [place], [place] [id number] Name: KWAME BRITT Exam Date: 01/25/2025 : 1955 Age 69 years Gender: M Physician: JULIO CÉSAR FLOYD Facility: [facility] Facility HSV: Outpatient Exam: CHEST PORTABLE XR CHEST 1 VIEW PORTABLE Reason For Study: Malaise COMPARISON:October 25, 2022, January 02, 2021 TECHNIQUE An AP portable view of the chest was obtained. FINDINGS Top normal in size and median sternotomy. Pacer defibrillator leads in place proximal lead in the right atrium distally right ventricle and third lead in the coronary sinus region. There is no acute infiltrate or pleural effusion. No pneumothorax. 2 cm nodular density in the left hilar area represents calcified lymph node. IMPRESSION: No active disease in the chest. Electronically signed by: Sarmad Hook MD 01/25/2025 01:34 PM EDT Dictated By: Sarmad Hook Transcribed By: Transcribed On: 01/25/2025 1:34 PM Electronically signed by: Sarmad Hook 01/25/2025 Thank you for referring KWAME BRITT to [facility]. Legally authenticated by JULIUS ABARCA 2025-01-25 13:34:19 ORDER 800: CTA HEAD W/CONT ( LOINC: 24389-5) ORDER DATE: January 25, 2025 4:36:00 PM UT PERFORMING LAB: [address] [id number] Final Result Date: January 062024 6:34:31 PM [facility] [address] [place] [address] Name: KWAME BRITT Exam Date: 01/25/2025 : 1955 Age 69 years Gender: M Physician: JULIO CÉSAR FLOYD Facility: [facility] Facility HSV: Outpatient Exam: CTA HEAD W/CONT EXAMINATION: CT BRAIN W/O (accession [id number]), CTA HEAD W/CONT (accession [id number]), CTA NECK W/CONT (accession [id number]) CLINICAL INDICATION: visual disturbances. TECHNIQUE: Axial CT images were obtained from the aortic arch to the skull vertex without & with intravenous contrast utilizing angiographic protocol with 3D post-processing (maximum intensity projection images, volume rendered images and/or shaded surface rendered images). One or more of the following dose reduction techniques were used: Automated exposure control, adjustment of the mA and/or kV according to patient size, and/or iterative reconstruction. Unless otherwise specified, incidental findings do not require dedicated imaging follow-up. COMPARISON: Noncontrast CT of the brain performed on 01/03/[address] of the brain and CT of neck performed on 02/29/2012. FINDINGS: Noncontrast brain/Brain CTA findings: There is no hydrocephalus or midline shift. The new-white matter junction does not demonstrate any evidence to suggest acute infarct. There is generalized cortical atrophy. There are bilateral periventricular white matter changes which are nonspecific. There is no intracranial hemorrhage, midline shift, or mass effect. The suprasellar and basilar cisterns are unremarkable. 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 There is mild bilateral ethmoid and right maxillary sinus mucosal thickening. There are no enhancing intra-axial masses. The globes and extraocular muscles are unremarkable. There is a hypoplastic left A1 segment of the left anterior cerebral artery. The remainder of the anterior circulation (ICA, MCA, right JARET) does not demonstrate any focal stenosis, vascular malformation, aneurysm. The anterior communicating artery is unremarkable. There is a left dominant vertebrobasilar system.The posterior circulation (vertebrals, basilar, and denial resolution specialist) does not demonstrate any evidence of stenosis, vascular malformation, or aneurysm. The posterior communicating arteries are not visualized. Neck Findings: The lung apices are unremarkable. The globes and extraocular muscles are unremarkable. The pterygopalatine fossa is unremarkable. The fossa of Rosenmuller and torus tubarus are unremarkable. The parapharyngeal fat is unremarkable. The parotid and submandibular glands are unremarkable. The tongue base, supraglottic and infraglottic larynx are unremarkable. The thyroid is unremarkable. Right carotid: There is less than 50% stenosis involving the right internal carotid artery at its bifurcation. Left carotid: There is less than 50% stenosis involving the left internal carotid artery at its bifurcation. The origin of the common carotid arteries unremarkable. The origin of the vertebral arteries Legally authenticated by MELISSA Bray 2025-01-25 14:34:31 The lungs are unremarkable. Multilevel endplate degenerative changes of the cervical spine. There are bilateral intra-articular facet changes of the cervical spine. IMPRESSION: 1. No evidence of acute infarct or intracranial hemorrhage. 2. Unremarkable CTA of the intracranial vessels. 3. Unremarkable CTA of the extracranial vessels. If clinical concern persists, further evaluation may be obtained with MRI of the brain. Electronically signed by: Antonio Stanley MD 01/25/2025 02:34 PM EDT Dictated By: ANTONIO STANLEY Transcribed By: Transcribed On: 01/25/2025 2:34 PM Electronically signed by: ANTONIO STANLEY 01/25/2025 Thank you for referring KWAME BRITT to [facility]. Legally authenticated by MELISSA Bray 2025-01-25 14:34:31 ORDER 900: CTA NECK W/CONT ( LOINC: 51423-1) ORDER DATE: January 25, 2025 4:36:00 PM [facility] PERFORMING LAB: [address] [id number] Final Result Date: January 062024 6:34:31 PM [facility] [address] [place] [address] Name: KWAME BRITT Exam Date: 01/25/2025 : 1955 Age 69 years Gender: M Physician: JULIO CÉSAR FLOYD Facility: [facility] Facility HSV: Outpatient Exam: CTA NECK W/CONT EXAMINATION: CT BRAIN W/O (accession [id number]), CTA HEAD W/CONT (accession [id number]), CTA NECK W/CONT (accession [id number]) CLINICAL INDICATION: visual disturbances. TECHNIQUE: Axial CT images were obtained from the aortic arch to the skull vertex without & with intravenous contrast utilizing angiographic protocol with 3D post-processing (maximum intensity projection images, volume rendered images and/or shaded surface rendered images). One or more of the following dose reduction techniques were used: Automated exposure control, adjustment of the mA and/or kV according to patient size, and/or iterative reconstruction. Unless otherwise specified, incidental findings do not require dedicated imaging follow-up. COMPARISON: Noncontrast CT of the brain performed on 01/03/[address] of the brain and CT of neck performed on 02/29/2012. FINDINGS: Noncontrast brain/Brain CTA findings: There is no hydrocephalus or midline shift. The new-white matter junction does not demonstrate any evidence to suggest acute infarct. There is generalized cortical atrophy. There are bilateral periventricular white matter changes which are nonspecific. There is no intracranial hemorrhage, midline shift, or mass effect. The suprasellar and basilar cisterns are unremarkable. 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 There is mild bilateral ethmoid and right maxillary sinus mucosal thickening. There are no enhancing intra-axial masses. The globes and extraocular muscles are unremarkable. There is a hypoplastic left A1 segment of the left anterior cerebral artery. The remainder of the anterior circulation (ICA, MCA, right JARET) does not demonstrate any focal stenosis, vascular malformation, aneurysm. The anterior communicating artery is unremarkable. There is a left dominant vertebrobasilar system.The posterior circulation (vertebrals, basilar, and denial resolution specialist) does not demonstrate any evidence of stenosis, vascular malformation, or aneurysm. The posterior communicating arteries are not visualized. Neck Findings: The lung apices are unremarkable. The globes and extraocular muscles are unremarkable. The pterygopalatine fossa is unremarkable. The fossa of Rosenmuller and torus tubarus are unremarkable. The parapharyngeal fat is unremarkable. The parotid and submandibular glands are unremarkable. The tongue base, supraglottic and infraglottic larynx are unremarkable. The thyroid is unremarkable. Right carotid: There is less than 50% stenosis involving the right internal carotid artery at its bifurcation. Left carotid: There is less than 50% stenosis involving the left internal carotid artery at its bifurcation. The origin of the common carotid arteries unremarkable. The origin of the vertebral arteries Legally authenticated by MELISSA Bray 2025-01-25 14:34:31 The lungs are unremarkable. Multilevel endplate degenerative changes of the cervical spine. There are bilateral intra-articular facet changes of the cervical spine. IMPRESSION: 1. No evidence of acute infarct or intracranial hemorrhage. 2. Unremarkable CTA of the intracranial vessels. 3. Unremarkable CTA of the extracranial vessels. If clinical concern persists, further evaluation may be obtained with MRI of the brain. Electronically signed by: Antonio Stanley MD 01/25/2025 02:34 PM EDT Dictated By: ANTONIO STANLEY Transcribed By: Transcribed On: 01/25/2025 2:34 PM Electronically signed by: ANTONIO STANLEY 01/25/2025 Thank you for referring KWAME BRITT to [facility]. Legally authenticated by MELISSA Bray 2025-01-25 14:34:31 ORDER 1100: KNEE 3V RT (LOIN C: 06585-9) ORDER DATE: January 25, 2025 4:59:00 PM [facility] PERFORMING LAB: [address] [id number] Final Result Date: January 062024 5:35:41 PM [facility] [address] [address] Name: KWAME BRITT Exam Date: 01/25/2025 : 1955 Age 69 years Gender: M Physician: JULIO CÉSAR FLOYD Facility: [facility] Facility HSV: Outpatient Exam: KNEE 3V RT XR KNEE 3 VIEWS RIGHT Reason For Study: Pain with Trauma/Injury COMPARISON:December 25, 2021 opposite side TECHNIQUE: 3 views of the right knee were obtained. FINDINGS Intact knee replacement no loosening or surrounding fractures. Surgical clips in the medial soft tissues. No joint effusion. IMPRESSION: Intact knee replacement. Electronically signed by: Sarmad Hook MD 01/25/2025 01:35 PM EDT RP Dictated By: Sarmad Hook Transcribed By: Transcribed On: 01/25/2025 1:35 PM Electronically signed by: Sarmad Hook 01/25/2025 Thank you for referring KWAME BRITT to [facility]. Legally authenticated by JULIUS ABARCA 2025-01-25 13:35:41 ORDER 1200: KNEE 3V LT (LOIN C: 28684-6) ORDER DATE: January 25, 2025 4:59:00 PM UTC PERFORMING LAB: [address] [id number] Final Result Date: January 062024 5:36:[address] [address] Name: KWAME BRITT Exam Date: 01/25/2025 : 1955 Age 69 years Gender: M Physician: JULIO CÉSAR FLOYD Facility: [facility] Facility HSV: Outpatient Exam: KNEE 3V LT XR KNEE 3 VIEWS LEFT Reason For Study: Pain with Trauma/Injury COMPARISON:12/25/2021 TECHNIQUE: 3 views of the left knee were obtained. FINDINGS Intact knee replacement. No loosening of hardware. Minimal joint fluid. Mild suprapatellar swelling. No displaced fractures. Minimal valgus deformity. IMPRESSION: Intact knee replacement. Electronically signed by: Sarmad Hook MD 01/25/2025 01:36 PM EDT RP Dictated By: Sarmad Hook Transcribed By: Transcribed On: 01/25/2025 1:36 PM Electronically signed by: Sarmad Hook 01/25/2025 Thank you for referring KWAME BRITT to [facility]. Legally authenticated by JULIUS ABARCA 2025-01-25 13:36:40 ORDER 1300: CT BRAIN W/O (LO INC: 09920-2) ORDER DATE: January 25, 2025 5:31:00 PM UTC PERFORMING LAB: [address] [place] [id number] Final Result Date: January 062024 6:34:31 PM [facility] [address] [place] [address] Name: KWAME BRITT Exam Date: 01/25/2025 : 1955 Age 69 years Gender: M Physician: Olman Akers Facility: [facility] Facility HSV: Outpatient Exam: CT BRAIN W/O EXAMINATION: CT BRAIN W/O (accession [id number]), CTA HEAD W/CONT (accession [id number]), CTA NECK W/CONT (accession [id number]) CLINICAL INDICATION: visual disturbances. TECHNIQUE: Axial CT images were obtained from the aortic arch to the skull vertex without & with intravenous contrast utilizing angiographic protocol with 3D post-processing (maximum intensity projection images, volume rendered images and/or shaded surface rendered images). One or more of the following dose reduction techniques were used: Automated exposure control, adjustment of the mA and/or kV according to patient size, and/or iterative reconstruction. Unless otherwise specified, incidental findings do not require dedicated imaging follow-up. COMPARISON: Noncontrast CT of the brain performed on 01/03/[address] of the brain and CT of neck performed on 02/29/2012. FINDINGS: Noncontrast brain/Brain CTA findings: There is no hydrocephalus or midline shift. The new-white matter junction does not demonstrate any evidence to suggest acute infarct. There is generalized cortical atrophy. There are bilateral periventricular white matter changes which are nonspecific. There is no intracranial hemorrhage, midline shift, or mass effect. The suprasellar and basilar cisterns are unremarkable. 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 There is mild bilateral ethmoid and right maxillary sinus mucosal thickening. There are no enhancing intra-axial masses. The globes and extraocular muscles are unremarkable. There is a hypoplastic left A1 segment of the left anterior cerebral artery. The remainder of the anterior circulation (ICA, MCA, right JARET) does not demonstrate any focal stenosis, vascular malformation, aneurysm. The anterior communicating artery is unremarkable. There is a left dominant vertebrobasilar system.The posterior circulation (vertebrals, basilar, and denial resolution specialist) does not demonstrate any evidence of stenosis, vascular malformation, or aneurysm. The posterior communicating arteries are not visualized. Neck Findings: The lung apices are unremarkable. The globes and extraocular muscles are unremarkable. The pterygopalatine fossa is unremarkable. The fossa of Rosenmuller and torus tubarus are unremarkable. The parapharyngeal fat is unremarkable. The parotid and submandibular glands are unremarkable. The tongue base, supraglottic and infraglottic larynx are unremarkable. The thyroid is unremarkable. Right carotid: There is less than 50% stenosis involving the right internal carotid artery at its bifurcation. Left carotid: There is less than 50% stenosis involving the left internal carotid artery at its bifurcation. The origin of the common carotid arteries unremarkable. The origin of the vertebral arteries Legally authenticated by MELISSA Bray 2025-01-25 14:34:31 The lungs are unremarkable. Multilevel endplate degenerative changes of the cervical spine. There are bilateral intra-articular facet changes of the cervical spine. IMPRESSION: 1. No evidence of acute infarct or intracranial hemorrhage. 2. Unremarkable CTA of the intracranial vessels. 3. Unremarkable CTA of the extracranial vessels. If clinical concern persists, further evaluation may be obtained with MRI of the brain. Electronically signed by: Antonio Stanley MD 01/25/2025 02:34 PM EDT Dictated By: ANTONIO STANLEY Transcribed By: Transcribed On: 01/25/2025 2:34 PM Electronically signed by: ANTONIO STANLEY 01/25/2025 Thank you for referring KWAME BRITT to [facility]. Legally authenticated by MELISSA Bray 2025-01-25 14:34:31 ORDER 1900: CT BRAIN W/O STR CONNIE PROTOCOL (LOINC: 21039-5) ORDER DATE: January 25, 2025 8:28:00 PM [facility] PERFORMING LAB: [address] [id number] Final Result Date: January 062024 8:57:56 AM [facility] [address] [place] [address] Name: KWAME BRITT Exam Date: 01/26/2025 : 1955 Age 69 years Gender: M Physician: ANNIE CABRERA Facility: [facility] Facility HSV: Outpatient Exam: CT BRAIN W/O (STROKE PROTOCOL) CT HEAD WITHOUT IV CONTRAST STROKE, 01/26/2025 3:42 AM CDT CLINICAL INDICATION: Male, 69 years old. Visual disturbances, follow-up imaging TECHNIQUE: Axial CT images from the skull base to the vertex without intravenous contrast. Coronal and sagittal reformatted images were created from the data set. One or more of the following dose reduction techniques were used: Automated exposure control, adjustment of the mA and/or kV according to patient size, and/or iterative reconstruction. Unless otherwise specified, incidental findings do not require dedicated imaging follow-up. [id number]. COMPARISON: 01/25/2025 FINDINGS: New-white matter differentiation is well-maintained without evidence of acute transcortical infarct. There is hypoattenuation in the periventricular and subcortical white matter likely secondary to chronic microvascular ischemia. Similar generalized parenchymal volume loss. No acute intracranial hemorrhage. No hydrocephalus. No midline shift or herniation. The visualized paranasal sinuses demonstrate mild mucosal thickening without air-fluid level. Right-sided august bullosa. The mastoid air cells are clear. Visualized orbits demonstrate no acute abnormality. No acute calvarial fracture appreciated. IMPRESSION: No acute intracranial abnormality. Electronically signed by: Tanvi Esposito MD 01/26/2025 04:57 AM EDT Dictated By: Tanvi Esposito Transcribed By: Transcribed On: 01/26/2025 4:57 AM Electronically signed by: Tanvi Esposito 01/26/2025 Thank you for referring KWAME BRITT to [facility]. Legally authenticated by PHYLLIS URIBE 2025-01-26 04:57:56 ORDER 4000: ECHO BUBBLE STUD Y (LOINC: 40870-8) ORDER DATE: January 26, 2025 6:25:00 AM [facility] PERFORMING LAB: [address] [id number] Final Result Date: January 062024 5:02:51 PM [facility] [address] [place] [address] Name: KWAME BRITT Exam Date: 01/26/2025 : 1955 Age 69 years Gender: M Physician: ANNIE CABRERA Facility: [facility] Facility HSV: Outpatient Exam: ECHO BUBBLE STUDY Reason for Study: Cerebral infarction SUMMARY * Mildly dilated LV with moderately decreased systolic function. The ejection fraction is 30-35%. Global left ventricular hypokinesis without regional heterogeneity. There is mild concentric left ventricular hypertrophy. * An agitated saline injection shows no evidence of interatrial communication. INTERPRETATION DETAIL Gen: A follow-up transthoracic echocardiogram was performed, limited echo for bubble study. Fair study quality. LV: The left ventricle is mildly dilated with moderately decreased systolic function. The ejection fraction is 30-35%. There is mild concentric left ventricular hypertrophy. LV geometry demonstrates concentric hypertrophy. Global left ventricular hypokinesis without regional heterogeneity. MV: The mitral valve is normal. There is mild mitral regurgitation. Kimberly: The pericardium is normal. IAS: The interatrial septum is normal. An agitated saline injection shows no evidence of interatrial communication. Misc: An implantible cardiac defibrillator is noted. RESTING WALL MOTION MEASUREMENTS LV DUBOIS IVSd: 1.13cm (<=1) ILWd: 1.11cm (<=1) LV MASS Linear: 310g (<=224) LVMI: 140g/m2 (<=115) LV VOLUME EDV: 130mL (<=150) EDVI: 58.8mL/m2 (<=74) ESV: 87mL (<=61) ESVI: 39.4mL/m2 (<=31) LV CHAMBER LVIDd: 6.29cm (<=5.84) Legally authenticated by DA PIERCE 2025-01-26 13:02:51 LVIDdI: 58.8mL/m2 (<=3) LVIDs: 5.45cm (<=4) LVIDsI: 2.47cm/m2 RWT: 0.35 (<=0.42) RV CHAMBER Mid Arminda: 3.1cm (<=3.5) LEFT ATRIUM AP: 4.6cm (3-4) LV SYSTOLIC FUNCTION SV: 43mL (60-100) SVI: 19 mL/m2 (35-65) FS: 13% EF: 33% (>=52) LV DIASTOLIC FUNCTION E/A: 1.48 (Variable) DT: 198ms (134-230) LV OUTFLOW Arminda: 2.30cm (<=2.5) AORTA Root: 3.60cm (<=3.7) Dictated By: JORGE ROBERSON Transcribed By: Transcribed On: 01/26/2025 1:02 PM Electronically signed by: JORGE ROBERSON 01/26/2025 Thank you for referring KWAME BRITT to [facility]. Legally authenticated by DA PIERCE 2025-01-26 13:02:51 PATHOLOGY NARRATIVE RESULTS Information is not available MICROBIOLOGY RESULTS No Micro Labs/Results Exist for Patient BLOOD ADMIN RESULTS Information is not available TREATMENT PLAN DISCHARGE MEDICATIONS Status RXNORM Medication Dose Route Frequency Dates Comments U pdated By Continued [id number] metformin 850 mg tablet 1 TAB ORAL TWICE A DAY Prescrib ed: January 26, 2025 2:10:06 PM [facility] [id number] on January 26, 2025 2:10:06 PM [facility] Continued [id number] atorvastatin 80 mg tablet 1 TAB ORAL ONCE DAILY Prescrib ed: January 26, 2025 2:10:06 PM [facility] [id number] on January 26, 2025 2:10:06 PM [facility] Continued [id number] Mounjaro 5 mg/0.5 mL Pen Injector 5 MG SUBCUTANEOUS ONCE EACH WEEK Prescrib ed: January 26, 2025 2:10:06 PM [facility] [id number] on January 26, 2025 2:10:06 PM [facility] Continued [id number] carvedilol 12.5 mg tablet 1 TAB ORAL TWICE A DAY Prescrib ed: January 26, 2025 2:10:06 PM [facility] [id number] on January 26, 2025 2:10:06 PM [facility] Continued [id number] Xarelto 20 mg tablet 1 TAB ORAL ONCE DAILY Prescrib ed: January 26, 2025 2:10:06 PM [facility] [id number] on January 26, 2025 2:10:06 PM [facility] Continued [id number] aspirin 81 mg capsule 1 CAP ORAL ONCE DAILY Prescrib ed: January 26, 2025 2:10:06 PM [facility] [id number] on January 26, 2025 2:10:06 PM [facility] Continued [id number] furosemide 20 mg tablet 1 TAB ORAL ONCE DAILY Prescrib ed: January 26, 2025 2:10:06 PM [facility] [id number] on January 26, 2025 2:10:06 PM [facility] Continued [id number] Farxiga 10 mg tablet 1 TAB ORAL ONCE DAILY Prescrib ed: January 26, 2025 2:10:06 PM [facility] [id number] on January 26, 2025 2:10:06 PM [facility] Continued [id number] losartan 25 mg tablet 1 TAB ORAL TWICE A DAY Prescrib ed: January 26, 2025 2:10:06 PM [facility] [id number] on January 26, 2025 2:10:06 PM [facility] Continued [id number] Tikosyn 250 mcg capsule 1 CAP ORAL EVERY TWELVE HOURS Prescrib ed: January 26, 2025 2:10:06 PM [facility] [id number] on January 26, 2025 2:10:06 PM [facility] PATIENT OPEN ORDERS Code System Descriptio n Frequency Occurrenc es Priority Category Start Date Ordering Physician Updated By Patient open order informati on is not available. SCHEDULED PROCEDURES Code System Description Status Scheduled Date Upd ated By Patient scheduled procedure information is not available. MEDICATIONS HOME MEDICATIONS Status [facility] Medication Dose Route Frequency Dates Comments Reported By Updated By Active [id number] 93437 41160 1 aspirin 81 mg capsule 1.0 CAP ORAL DAILY Last Dose: [id number] on January 25, 2025 11:04:44 PM [facility] Active 245555 03053 49681 5 carvedilol 12.5 mg tablet 1.0 TAB ORAL BID Last Dose: [id number] on January 25, 2025 7:02:35 PM [place] Active 5445111 70961 70155 0 Xarelto 20 mg tablet 1.0 TAB ORAL DAILY Last Dose: [id number] on January 25, 2025 7:02:36 PM [facility] Active 632536 54554 98495 1 furosemide 20 mg tablet 1.0 TAB ORAL DAILY Last Dose: [id number] on January 25, 2025 7:02:36 PM [facility] Active 5816756 39527 71265 9 Farxiga 10 mg tablet 1.0 TAB ORAL DAILY Last Dose: [id number] on January 25, 2025 7:02:36 PM [place] Active 282636 93237 46880 0 Tikosyn 250 mcg capsule 1.0 CAP ORAL Q12H Last Dose: [id number] on January 25, 2025 7:02:36 PM [place] Active 7210720 61501 69697 0 Mounjaro 5 mg/0.5 mL Pen Injector 5.0 MG SUBCUT ANEOUS QWEEK Last Dose: [id number] on January 25, 2025 11:04:44 PM [place] Active 353649 19494 35110 0 losartan 25 mg tablet 1.0 TAB ORAL BID Last Dose: [id number] on January 25, 2025 7:02:36 PM [place] Active 255706 15321 15344 1 metformin 850 mg tablet 1.0 TAB ORAL BID Last Dose: [id number] on January 25, 2025 11:04:44 PM [place] Active 026889 61063 70326 1 atorvastatin 80 mg tablet 1.0 TAB ORAL DAILY Last Dose: [id number] on January 25, 2025 11:04:44 PM [facility] DISCHARGE MEDICATIONS Status [facility] Medication Dose Route Frequency Dates Dis pense Data Comments Physician Updated By Continu ed [id number] 3993 5542 301 metformin 850 mg tablet 1.0 TAB ORAL TWICE A DAY Prescr ibed: Octobe r 2024 2:10:0 6 PM [facility] [id number] on January 26, 2025 2:10:06 PM [facility] Continu ed 121417 8278 5094 311 atorvastati n 80 mg tablet 1.0 TAB ORAL ONCE DAILY Prescr ibed: Octobe r 2024 2:10:0 6 PM [facility] AZRA LAL [id number] on January 26, 2025 2:10:06 PM [facility] Continu ed [id number] 0000 2149 580 Mounjaro 5 mg/0.5 mL Pen Injector 5.0 MG SUBCUT ANEOUS ONCE EACH WEEK Prescr ibed: Octobe r 2024 2:10:0 6 PM [facility] [id number] on January 26, 2025 2:10:06 PM [facility] Continu ed 866331 4136 8003 605 carvedilol 12.5 mg tablet 1.0 TAB ORAL TWICE A DAY Prescr ibed: [facility] r 2024 2:10:0 6 PM [facility] [id number] on January 26, 2025 2:10:06 PM [facility] Continu ed [id number] 2371 8057 910 Xarelto 20 mg tablet 1.0 TAB ORAL ONCE DAILY Prescr ibed: [facility] r 2024 2:10:0 6 PM [facility] [id number] on January 26, 2025 2:10:06 PM [facility] Continu ed [id number] 7304 9008 121 aspirin 81 mg capsule 1.0 CAP ORAL ONCE DAILY [facility] [id number] on January 26, 2025 2:10:06 PM [facility] Continu ed 708691 5486 0056 201 furosemide 20 mg tablet 1.0 TAB ORAL ONCE DAILY Prescr ibed: [facility] r 2024 2:10:0 6 PM [facility] [id number] on January 26, 2025 2:10:06 PM [facility] Continu ed [id number] 7869 0621 039 Farxiga 10 mg tablet 1.0 TAB ORAL ONCE DAILY Prescr ibed: [facility] r 2024 2:10:0 6 PM [facility] [id number] on January 26, 2025 2:10:06 PM [facility] Continu ed 059405 2902 2070 090 losartan 25 mg tablet 1.0 TAB ORAL TWICE A DAY [facility] 2:10[facility]0 6 PM [facility] [id number] on January 26, 2025 2:10:06 PM [facility] Continu ed 209796 2534 9581 060 Tikosyn 250 mcg capsule 1.0 CAP ORAL EVERY TWELVE HOURS [facility] 2:10[facility]0 6 PM [facility] [id number] on January 26, 2025 2:10:06 PM [facility] INPATIENT MEDICATIONS Status [facility] Medication Dose Route Frequency Rat e Quantity Dates Indication Dispense Data Comments Physician Updated By Discont inued [id number] 3007 2362 352 atorvastati n (LIPITOR) 20 MG TABS 80.0 MG ORAL AT BEDTIME Start: [facility] 2024 1:00:0 0 AM [place] End: [facility] 2024 2:10:0 6 PM [place] RICK ANNIE [id number] on January 27, 2025 4:25:00 AM [place] Discont inued 7385 3000 201 baby aspirin (LOS) 81 MG CHEW 81.0 MG ORAL ONCE DAILY Start: [facility] r 2024 1:00:0 0 PM UTC End: [facility] r 2024 2:10:0 6 PM [place] RICK ANNIE [id number] on January 27, 2025 4:25:00 AM [place] Discont inued 0799 5576 164 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 8:29:0 0 PM UTC [facility] 20[facility] 2:10:0 6 PM UTC RICK ANNIE [id number] on January 27, 2025 4:25:00 AM [place] Discont inued 2165118 7420 5613 000 ondansetron (ZOFRAN) INJ 4 MG/2 ML SOLN 4.0 MG INTRAV ENOUS EVERY SIX HOURS NEEDED Start: [facility] r 2024 8:29:0 0 PM [facility] 2:10[facility]0 6 PM UTC RICK ANNIE [id number] on January 27, 2025 4:25:00 AM [place] Discont inued XXXX XXX0 008 GI COCKTAIL 30 ML SUSP 30.0 ML ORAL EVERY FOUR HOURS NEEDED [facility] 8:[facility]0 0 PM UTC End: Octobe r 2024 2:10:0 6 PM UTC RICK ANNIE [id number] on January 27, 2025 4:25:00 AM UTC Discont inued 9857373 8296 2879 959 insulin lispro (HumaLOG) PEN 100 UNIT/ML SOPN 1.0 UNT SUBCUT ANEOUS SLIDING SCALE NEEDED Start: [facility] 2024 8:29:0 0 PM UTC End: [facility] 2024 2:10:0 6 PM UTC RICK ANNIE [id number] on January 27, 2025 4:25:00 AM UTC Discont inued 7890070 7697 9314 201 dextrose 50% SYRINGE (25 GM) SOLN 25.0 ML INTRAV ENOUS NEEDED Start: Oct[facility] r 2024 8:29:0 0 PM UTC End: [facility] r 2024 2:10:0 6 PM UTC RICK ANNIE [id number] on January 27, 2025 4:25:00 AM UTC Discont inued 0090 4673 061 acetaminoph en (TYLENOL) 500 MG TABS 1000. 0 MG ORAL EVERY EIGHT HOURS NEEDED Start: Oct[facility] r 2024 8:29:0 0 PM UTC End: [facility] r 2024 2:10:0 6 PM UTC RICK ANNIE [id number] on January 27, 2025 4:25:00 AM UTC Discont inued 0527633 7921 7020 101 DUONEB 0.5-2.5 MG/3 ML SOLN 3.0 ML INHALE D EVERY SIX HOURS NEEDED (RESPIRATO RY) Start: Oct[facility] r 2024 8:29:0 0 PM UTC End: Oct[facility] r 2024 2:10:0 6 PM UTC RICK ANNIE [id number] on January 27, 2025 4:25:00 AM UTC Discont inued 859422 6766 8015 745 melatonin 5 MG TABS 5.0 MG ORAL AT BEDTIME NEEDED Start: Oct[facility] r 2024 1:00:0 0 AM UTC End: Oct[facility] r 2024 2:10:0 6 PM UTC RICK ANNIE [id number] on January 27, 2025 4:25:00 AM UTC Discont inued 110585 4493 9093 120 carvedilol (COREG) 12.5 MG TABS 12.5 MG ORAL TWICE A DAY Start: [facility] r 2024 1:00:0 0 AM [facility] 4:[facility]0 0 PM UTC RICK VALENCIA [id number] on January 27, 2025 4:25:00 AM UTC Discont inued Free Text Med Farxiga 10 mg tablet 1.0 TAB ORAL ONCE DAILY [facility] 1:[facility]:0 0 PM UTC End: Octobe r 2024 1:00:0 0 PM UTC RICKNEERAJ VALENCIA [id number] on January 25, 2025 11:09:00 PM UTC Discont inued Free Text Med Xarelto 20 mg tablet 1.0 TAB ORAL ONCE DAILY Start: [facility] r 2024 1:00:0 0 PM UTC End: [facility] r 2024 1:00:0 0 PM UTC RICK VALENCIA [id number] on January 25, 2025 11:10:00 PM UTC Discont inued 210903 8266 9581 043 dofetilide (TIKOSYN) 250 MCG CAPS 250.0 MCG ORAL EVERY TWELVE HOURS Start: [facility] r 2024 1:00:0 0 AM UTC [facility] 1:24:4 9 PM UTC RICK VALENCIA SSTCLAIR on January 26, 2025 1:24:00 PM UTC Discont inued 561337 2039 9007 220 furosemide (LASIX) 20 MG TABS 20.0 MG ORAL ONCE DAILY Start: [facility] r 2024 1:00:0 0 PM UTC [facility] 4:35:0 0 PM UTC RICK VALENCIA [id number] on January 27, 2025 4:25:00 AM UTC Discont inued 264663 9184 2070 090 losartan potassium (COZAAR) 25 MG TABS 25.0 MG ORAL TWICE A DAY [facility] 1:[facility]:0 0 AM UTC [facility] 2:10:0 6 PM UTC RICK VALENCIA [id number] on January 27, 2025 4:25:00 AM UTC Discont inued 0319007 2435 3045 730 dapaglifloz in (FARXIGA) 10 MG TABS 10.0 MG ORAL ONCE DAILY Start: [facility] r 2024 1:00:0 0 PM UTC End: Octobe r 2024 2:10:0 6 PM UTC RICK GARCIAN [id number] on January 27, 2025 4:25:00 AM UTC Discont inued 7804926 2567 8058 010 rivaroxaban (XARELTO) 10 MG TABS 20.0 MG ORAL ONCE DAILY [facility] 1:00:0 0 PM UTC [facility] 2:10:0 6 PM UTC RICK VALENCIA [id number] on January 27, 2025 4:25:00 AM UTC Discont inued 662622 5849 9581 043 dofetilide (TIKOSYN) 250 MCG CAPS 250.0 MCG ORAL EVERY TWELVE HOURS [facility] 1:24:0 0 PM [facility] 2:10:0 6 PM UTC RICK VALENCIA [id number] on January 27, 2025 4:25:00 AM [place] SOCIAL HISTORY SOCIAL HISTORY - Smoking Status SNOMED-CT Social History Element Description Effective Dates Offered Cessation Comment Updated By [id number] Current Tobacco smoking status Unknown If Ever Smoked [id number] on January 25, 2025 5:49:27 PM UTC [id number] Historical Tobacco smoking status Never Smoked [id number] on May 24, 2019 7:51:50 PM [place] SOCIAL HISTORY - Gender Sex: Male SOCIAL HISTORY - Status : status i nformation is not available Intention in Next Year: intention information is not available SOCIAL HISTORY - Assessments Code System Description Status Date Value of Assessment Updated By Comment Assessment Information is no t available SOCIAL HISTORY - [place] Affiliation [place] information is not av ailable SOCIAL HISTORY - Legal Sex Legal Sex information is not available SOCIAL HISTORY - Sexual Behavior Sexual Orientation Gender Identity SNOMED-CT Description SNO MED -CT Description Activity Level No of Partners Partner Type UpdatedBy Information is not available SOCIAL HISTORY - Occupation Occupation information is no t available VITAL SIGNS PATIENT VITAL SIGNS This section displays the mo st recent value for each vital sign as of January 28, 2025 2:07:57 PM UTC Loinc Code Vital [place] [address]-4 Blood glucose monitors January 062024 10:29:00 AM UTC 105.0 mg/dL 8302-2 Body height January 25, 2025 4:39:36 PM UTC 175.26 cm (69.0 in) [id number] on January 25, 2025 4:39:36 PM UTC 66947-3 Body mass index (BMI ) [Ratio] January 25, 2025 4:39:36 PM UTC 32.947 kg/m2 3140-1 Body Surface Area Derived From Formula January 25, 2025 4:39:36 PM UTC 2.1639 m2 8310-5 Body temperature January 26 3:37:00 PM UTC 97.7 [degF] 63970-6 Body weight Measured January 25, 2025 4:39:36 PM UTC 101.2 kg (223.0 lb) [id number] on January 25, 2025 4:39:36 PM UTC 8462-4 Diastolic blood pressure January 26, 2025 3:37:00 PM UTC 83.0 mm[Hg] 8867-4 Heart rate January 26, 2025 3:37:00 PM UTC 64 /min 8478-0 Mean blood pressure January 26, 2025 3:37:00 PM UTC 105.0 mm[Hg] 99585-5 Oxygen saturation in Arterial blood by Pulse oximetry January 26, 2025 3:37:00 PM UTC 95.0 % 9279-1 Respiratory rate January 26 3:37:00 PM UTC 16 /min 8480-6 Systolic blood pressure January 26, 2025 3:37:00 PM UTC 142.0 mm[Hg] 60458-1 Vital capacity [Volume] Respiratory system by Spirometry January 25, 2025 11:50:00 PM UTC 3000.0 ml PEDIATRIC GROWTH CHART - VITAL SIGNS This section displays Head C ircumference Percentile, Weight for Length Percentile and BMI Percentile Loinc Code Pediatric Measure Age (Months) Result Updat ed By No Pediatric Growth Chart Pe rcentile Information Available. GOALS PATIENT GOALS Goal Assigned Date Updated By +KWAME BRITT REMAINS FREE FROM COMPLICATIONS OF CEREBRAL VASCULAR ACCIDENT (CVA) - TRANSIENT ISCHEMIC ATTACK (TIA) CARE PLAN DURING THE CARE PERIOD January 25, 2025 [id number] on January 25, 2025 10:48:27 PM [facility] +KWAME BRITT REMAINS FREE FROM COMPLICATIONS OF HEART FAILURE January 25, 2025 [id number] on January 25, 2025 10:48:27 PM [facility] KWAME BRITT REMAINS FREE FROM COMPLICATIONS FOR MED-SURG ADMIT DURING THE CARE PERIOD January 25, 2025 [id number] on January 25, 2025 10:48:27 PM [facility] KWAME BRITT REMAINS FREE OF COMPLICATIONS RELATED TO IV THERAPY DURING THE CARE PERIOD January 25, 2025 [id number] on January 25, 2025 10:48:27 PM [facility] HEALTH CONCERNS Problems Concern Status Health Concern problem infor mation not available. Smoking Status Status Years Used Consumed packs p er day Health Concern smoking histo ry information not available. Family History Concern Status Health Concern family histor y information not available. ENCOUNTERS ENCOUNTER INFORMATION Reason for Visit CEREBRAL INFARCTION UNSPECIFIED Admission January 25, 2025 4:28:[address] [address] Discharge January 26, 2025 4:35:00 PM [facility] DISCHARGED TO HOME OR SELF CARE ENCOUNTER DIAGNOSES Notes information is not noemí ilable. Code System Diagnosis Onset Date Diagnosis information is not available. 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 [id number] on January 28, 2025 2:07:37 PM [facility] I50.9 ICD10 HEART FAILURE, UNSPECIFIED A [id number] on January 28, 2025 2:07:37 PM [facility] Z86.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 PERSONAL HISTORY OF OTHER VENOUS THROMBOSIS AND EMBOLISM [id number] on January 28, 2025 2:07:37 PM [facility] E11.9 ICD10 TYPE 2 DIABETES MELLITUS WITHOUT COMPLICATIONS [id number] on January 28, 2025 2:07:37 PM [facility] 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 [id number] on January 28, 2025 2:07:37 PM [facility] 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 [id number] on January 28, 2025 2:07:37 PM [facility] Z90.49 ICD10 ACQUIRED ABSENCE OF OTHER SPECIFIED PARTS OF DIGESTIVE TRACT [id number] on January 28, 2025 2:07:37 PM [facility] Z79.82 ICD10 HALFWAY (CURRE NT) USE OF ASPIRIN [id number] on January 28, 2025 2:07:37 PM [facility] Z79.01 ICD10 HALFWAY (CURRE NT) USE OF ANTICOAGULANTS [id number] on January 28, 2025 2:07:37 PM [facility] 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 [id number] on January 28, 2025 2:07:37 PM [facility] CARE TEAM Care Front Man Role AKBAR SANTACRUZ Admitting AKBAR SANTACRUZ Primary Attending [place] Primary Care [facility] DISCHARGE INSTRUCTION DISCHARGE INSTRUCTION Encounter [id number] Admit Date January 25, 2025 4:2 8:00 PM [facility] Discharge Date January 26, 2025 4:3 5:00 PM [facility] PATIENT EDUCATION SUMMARY Patient/Visit Information: Patient Name: KWAME BRITT Diag: Attending Caregiver: NEETA Bustillo Discharge Instruction Sheets Provided: BEFAST-Stroke Warning Signs Discharge Information Fall Prevention in Hospitals and in the Home [facility] - Medication Management Ischemic Stroke, Aanb-lu-Rwfp KYNECT- HELP Medication Side Effects Suicide - Managing your Feelings Blurred Vision, Adult Stroke Prevention, Lhrh-uy-Podm Patient Instructions: Followup Appointments/Instructions: CARE TEAM CARE veneer redrier Role on Team Location Telecom Status Start Date End Arvin e Updated By NEETA GLOVER Attending normal January 25, 2025 7:38:09 PM [facility] January 26, 2025 4:35:00 PM [facility] [id number] on January 25, 2025 7:38:09 PM [facility] NEETA GLOVER Admitting normal January 25, 2025 7:38:09 PM UTC January 26, 2025 4:35:00 PM UTC [id number] on January 25, 2025 7:38:09 PM UTC OSCAR GLOVER Referring normal January 25, 2025 5:20:33 PM UTC January 26, 2025 4:35:00 PM UTC [id number] on January 25, 2025 7:38:09 PM [place] SANDRA GLOVER Attending normal January 25, 2025 5:20:33 PM UTC January 25, 2025 7:38:09 PM UTC [id number] on January 25, 2025 7:38:09 PM [place] SANDRA GLOVER Admitting normal January 25, 2025 5:20:33 PM UTC January 25, 2025 7:38:09 PM UTC [id number] on January 25, 2025 7:38:09 PM [place] OSCAR GLOVER PCP normal January 25, 2025 4:28:25 PM UTC January 26, 2025 4:35:00 PM UTC [id number] on January 25, 2025 7:38:09 PM UTC
--- OUTSIDE RECORDS SUMMARY | 2025-02-02 13:53 | XMS_ITS | Clinical Summary ---
Author Organization Healthcare Address [address] [place] [address] Care Team Providers Care Combatant Swimmer Name Role Phone Unavailable Primary Care Provider Unavailabl e Social History Tobacco Use Types Packs/Day Years Used Date Smoking Tobacco: Never Assessed Sex and Gender Information Value Date Recorded Sex Assigned at Not on file Legal Sex Male 7:46 PM EDT Gender Identity Not on file Sexual Orientation Not on file Plan of Treatment Not on file
--- OUTSIDE RECORDS SUMMARY | 2025-02-02 13:53 | XMS_ITS | Clinical Summary ---
Author Organization [employer] ([place], [place], [place], [place]) Address [address] [place] [address] Care Team Providers Care Paper Bag Making Machinist Name Role Phone Teo Yoo MD Primary Care Provider [phone]- [phone] Allergies No known active allergies Medications aspirin 81 MG EC tablet Take 1 tablet (81 mg total) by mouth daily. Active metFORMIN (GLUCOPHAGE) 1000 MG tablet Take 1 tablet (1,000 mg total) by mouth 2 (two) times daily. 11/23/19 22 Active carvediloL (COREG) 12.5 MG tablet Take 1 tablet (12.5 mg total) by mouth 2 (two) times daily. Active atorvastatin (LIPITOR) 80 MG tablet Take 1 tablet (80 mg total) by mouth nightly. 11/29/19 22 Active dapagliflozin propanediol (Farxiga) 10 mg tablet TAKE ONE TABLET BY MOUTH ONCE A DAY 30 tablet 11 06/03/19 25 Active Additional Information Patient taking differently:1 tablet oralEvery morning, Reported on 09/30/2024 furosemide (LASIX) 20 MG tabletIndicatio ns:Paroxysmal atrial fibrillation (HCC) Take 1 tablet (20 mg total) by mouth daily. 90 tablet 3 07/09/19 25 Active mupirocin (BACTROBAN) 2 % ointment Apply topically 3 (three) times daily. 08/11/19 25 Active Mounjaro 2.5 mg/0.5 mL pnij Inject 2.5 mg under the skin every 7 days TAKES ON . 08/14/19 25 Active dofetilide (TIKOSYN) 250 MCG capsuleIndicati ons:Paroxysmal atrial fibrillation (HCC) Take 1 capsule (250 mcg total) by mouth every 12 (twelve) hours. 180 capsule 4 10/01/19 25 Active losartan (COZAAR) 25 MG tablet Take 1 tablet (25 mg total) by mouth daily. 30 tablet 11 10/01/19 25 026 Active rivaroxaban (Xarelto) 20 mg tabletIndicatio ns:Atrial fibrillation, persistent (HCC) TAKE ONE TABLET BY MOUTH ONCE A DAY WITH DINNER 30 tablet 11 01/11/20 25 Active Xarelto 20 mg tabletIndicatio ns:Atrial fibrillation, persistent (HCC) TAKE ONE TABLET BY MOUTH ONCE A DAY WITH DINNER 30 tablet 4 08/18/19 25 025 Discontinued Active Problems Problem Noted Date Diagnosed Date Osteoarthritis, knee 10/06/2024 QT prolongation 08/10/2024 AICD (automatic cardioverter/defibrillator) pres ent 08/15/2023 Type 2 diabetes mellitus 04/21/2022 024 Chronic systolic congestive heart failure 2021 Encounter for adjustment or management of cardia c device 02/12/2022 PAF (paroxysmal atrial fibrillation) 02/12/2022 Ischemic cardiomyopathy 02/26/2021 Overview (08/15/2023): 01/03/2015 ECHO EF 27%, 1+ MR CVA (cerebral vascular accident) 01/04/2021 CAD (coronary artery disease) 01/03/2021 Overview (08/15/2023): H/o CABG X2 (10/10/2014) Cardiac cath 11/2022 LMCA: Diffuse irregularity and Focal stenosis.distal lesion LAD: Diffuse irregularity. LCx: Diffuse irregularity. RCA: Diffuse irregularity. History of DVT (deep vein thrombosis) 01/03/2021 Hypertension 01/03/2021 Depressive disorder 10/22/2019 Resolved Problems Problem Noted Date Diagnosed Date Resolved Date Atrial fibrillation and flutter 07/07/2023 07/07/2023 Status post atrioventricular mely ablation 07/07/2023 08/15/2023 Atrial fibrillation with RVR 05/14/2023 08/15/2023 Atrial fibrillation with rap id ventricular response 11/06/2022 07/07/2023 Essential hypertension 04/21/2022 07/07/202308/14 At risk for sleep apnea 02/12/202208/05 Dyslipidemia 02/12/2022 07/07/2023 Low back pain 02/12/2022 07/07/2023 Type 2 diabetes mellitus with hyperglycemia 02/26/2021 07/07/2023 Diabetes mellitus 01/03/2021 08/15/2023 Hyperlipidemia 01/03/2021 07/07/2023 Presence of cardiac pacemaker 01/03/2021 07/07/2023 Suspected cerebrovascular accident (CVA) 01/03/2021 07/07/2023 Congestive heart failure 10/22/201904/2023 Fatigue 10/22/2019 08/15/2023 Gastroesophageal reflux disease 10/22/2019 07/07/2023 Sleep apnea 10/22/2019 07/07/2023 Encounters Date Type Department Care Team Description 01/10/2025 Refill [facility] Electrophysiology [address] [place], [place] [phone] Kendall Malik MD Atrial fibrillation, persistent (HCC) 12/01/2024 3:00 AM EDT Clinical Support [facility] Electrophysiology [facility] [place] [address] Kendall Malik MD Encounter for adjustment or management of cardiac device (Primary Dx); Chronic systolic congestive heart failure (HCC); Ischemic cardiomyopathy; PAF (paroxysmal atrial fibrillation) (HCC); AICD (automatic cardioverter/defibri llator) present from Last 3 Months Social History Tobacco Use Types Packs/Day Years Used Date Smoking Tobacco: Never Smokeless Tobacco: Never Tobacco Cessation:Counseling Given: Not Answered Alcohol Use Standard Drinks/Week Comments Not Currently [...] Never 10/06/2024 How often does anyone, howard jiémnez family and friends, insult or talk down to you? Never 10/06/2024 How often does anyone, howard jiménez family and friends, threaten you with harm? Never 10/06/2024 How often does anyone, howard jiménez family and friends, scream or curse at you? Never 10/06/2024 Housing Stability Answer Date Recorded What is your living situation today? I have a [facility] place to live 10/06/[address] you li ve. Do you have problems with any of the following? None of the above 10/06/2024 Food Insecurity Answer Date Recorded Within the past 12 months, y ou worried that your food would run out before you got money to buy more. Never true 10/06/2024 Within the past 12 months, t he food you bought just didn't last [...] Do you speak a language other than [place] at [facility]? No 10/06/2024 Do you want help with [...] on file Sexual Orientation Not on file Last Filed Vital Signs Vital Sign Reading Time Taken Comments Blood Pressure 153/83 10/07/2024 12:00 PM EDT Pulse 72 10/07/2024 12:05 PM EDT Temperature 36.7 C (98.1 F) 10/07/2024 11:56 AM EDT Respiratory Rate 25 10/07/2024 12:05 PM EDT Oxygen Saturation 96% 10/07/2024 12:05 PM EDT Inhaled Oxygen Concentration - - Weight 105.2 kg (232 lb) 10/06/2024 11:45 AM EDT Height 175.3 cm (5' 9 ) 10/06/2024 11:45 AM EDT Body Mass Index 34.26 10/06/2024 11:45 AM EDT Plan of Treatment Upcoming Encounters Date Type Department Care Team (Late st Contact Info) Description 02/08/2025 1:45 PM EST Office Visit [facility] Cardiology [address] [place] [phone] Christina Almonte MD [address] [place] [phone] 04/05/2025 12:30 PM EST Office Visit [facility] Electrophysiology [address] [place] [phone] Kendall Malik MD [address] [place] [address] [place] [address] Health Maintenance Due Date Last Done Comments CT Colonography 1955 Colonoscopy 1953 Colorectal Cancer Screening 1955 Diabetic Kidney Health Evalu ation (KED) 1953 FOBT/FIT 1953 Fit-DNA (Cologuard) 1953 Sigmoidoscopy 1953 Diabetic Eye Exam 12/22/1963 Hepatitis C Screening 12/22/1971 DTAP/TDAP/TD VACCINES (1 - Tdap) 1972 Shingles Vaccine (Zoster) (1 of 2) 12/22/2003 Respiratory Syncytial Virus (RSV) Adult or (1 - Risk 60-74 years 1-dose series) 2013 Medicare Initial AWV G0438 12/08/2019 Falls Risk Screening 04/07/2024 COVID-19 VACCINE ( season) 2024 Hemoglobin A1C 02/10/2025 08/10/2024 Tobacco Cessation Counseling and Screening (12+) 10/06/2025 10/06/2024 Pneumococcal 50+ years Completed 02/23/2024 Influenza Vaccine Completed 12/08/2024, , 05/01/2023 Medical Devices Implanted Type Area Project Management Consultant Device Identifier Shelf Expiration Date Model / Serial / Lot Icd- 2 Implanted: by Kendall Malik MD (Quantity not on file) ICD Left: Chest [employer] [id number] / [id number] / Cement Bone Smplx Tobra 40gm 6197-9-001 - [id number] Implanted:Qt y: 2 on 10/06/2024 by Sandeep Skinner MD at [facility] IMPLANTS Left: Knee [employer] [id number] 12/05/2025 6197-9-0 01 / / [id number] Pwdr Cellerate Clgn 1gm Strl Zdq-10-Reyxv p - [id number] Implanted:Qt y: 1 on 10/06/2024 by Sandeep Skinner MD at [facility] IMPLANTS Left: Knee [employer] 08/19/2026 WCI-01-S ACRXP / / [id number] Crtd Boaz Hf Quad Is4 Df1 Arxc7l5 - [id number] Implanted:Qt y: 1 on 02/06/[address] [facility] PACEMAKER/IC D BI VALVE DEVICE [employer]:CARD RHY:DISEASE MGT [id number] / / Kt Cr Full Itotal Id 2pc Itcr-Xe-2pc - [id number] Implanted:Qt y: 1 on 10/06/2024 by Sandeep Skinner MD at [facility] TOTAL JOINT CONSTRUCT Left: Knee [id number] 09/04/2025 ITCR-XE- 2PC / [id number] / Ty Cr Tib Itotal Id Right [id number] - [id number] Implanted:Qt y: 1 on 10/06/2024 by Sandeep Skinner MD at [facility] TOTAL JOINT [employer]STRU[employer] Left: Knee [id number] 09/04/2025 [id number] / [id number] / Imp Cr Fem Itotal Id Tu Right [id number] - [id number] Implanted:Qt y: 1 on 10/06/2024 by Sandeep Skinner MD at [facility] TOTAL [employer]INT [employer] Left: Knee [id number] 09/04/2025 [id number] / Imp Patella Itotal 35x7mm [id number] - [id number] Implanted:Qt y: 1 on 10/06/2024 by Sandeep Skinner MD at [facility] TOTAL JOINT CONSTRUCT Left: Knee [id number] 05/07/2025 [id number] / / [id number] Procedures Procedure Name Priority Date/Time Associated Diagnosis Comments HEMOGLOBIN A1C Routine 08/10/2024 11:40 AM EDT Preop examination from Last 3 Months or Most Recently Relevant to Health Maintenance Results * (ABNORMAL) Hemoglobin A1c (08/10/2024 11:40 AM EDT) Hemoglobin A1C 8.8(H) 4.2 - 6.3 % 08/10/2024 12:09 PM EDT [facility] Comment: Hemoglobin A1C levels are related to mean glucose during the preceding 2-3 months. Less than 7% demonstrates glycemic control in diabetic patients. Hemoglobin AlC % Suggested Diagnosis > or = 6.5 Diabetic 5.7 - 6.4 Prediabetic <5.7 Non-diabetic eAVG Glucose 205.86 mg/dL 08/10/2024 12:09 PM EDT [facility] Blood 08/10/2024 11:4 0 AM EDT 08/10/2024 11:40 AM EDT us Sandeep Skinner MD LAB BLOOD ORDERABLES Final Resul t [facility] [address] [place] [id number] [phone] from Last 3 Months or Most Recently Relevant to Health Maintenance Insurance Advance Directives For more information, please contact: [phone] * Full Code (Latest Code Status on File) Date Activated Date Inactivated Comments 10/06/2024 10:54 AM 10/07/2024 1:47 PM * Full Code Date Activated Date Inactivated Comments 10/06/2024 5:47 AM 10/06/2024 10:54 AM * Full Code Date Activated Date Inactivated Comments 07/07/2023 11:43 AM 07/08/2023 12:48 PM * Full Code Date Activated Date Inactivated Comments 07/07/2023 5:04 AM 07/07/2023 11:43 AM * Full Code Date Activated Date Inactivated Comments 05/15/2023 12:04 AM 05/19/2023 2:49 PM -Attempt Res uscitation if person has no pulse and is not breathing. -If no pulse or not breathing attempt CPR/CODE. -Call Rapid Response if patient is in distress. Care Teams Paper Bag Making Machinist Relationship Specialty Start Date End Date Teo Yoo MD [address] [place] [address] [address] [place] [address] PCP - General General Internal Medicine 02/06/22
--- OUTSIDE RECORDS SUMMARY | 2025-02-02 13:53 | XMS_ITS | Encounter Summary ---
Author Organization [employer] ([place], [place], [place], [place]) Address [address] [place] [address] Care Team Providers Care Payroll Accounting Specialist Name Role Phone Teo Yoo MD Primary Care Provider [phone] Encounter Details Date Type Department Care Team (Late st Contact Info) Description 11/19/2019 Transcribed Document [facility] Radiology [address] [phone] Calixto Spencer MD [address] [place] [address] [place] [address] Social History Tobacco Use Types Packs/Day Years Used Date Smoking Tobacco: Never Assessed Sex and Gender Information Value Date Recorded Sex Assigned at Not on file Legal Sex Male 1:10 PM CDT Gender Identity Not on file Sexual Orientation Not on file documented as of this encounter Miscellaneous Notes * Cerner Conversion Note - Calixto Spencer MD - 11/19/2019 10:20 AM EDT HISTORY AND PHYSICAL UPDATE Update Required: The appropriate section below MUST be completed prior to authentication. UPDATE: The History and Physical performed by on has been reviewed, patient was examined, and no change has occurred since the History and Physical was completed. OR UPDATE: The History and Physical performed by on has been reviewed and patient examined. The only significant change(s) in the patient's history or condition since the History and Physical was completed are indicated below: Significant Changes: documented in this encounter Plan of Treatment Upcoming Encounters Date Type Department Care Team (Late st Contact Info) Description 02/08/2025 1:45 PM EST Office Visit [facility] Cardiology [address] [place] [address] Christina Almonte MD [address] [place], [place] [phone] 04/05/2025 12:30 PM EST Office Visit [facility] Electrophysiology [address] [place], [place] [phone] Kendall Malik MD [address] [place] [address] [address] [place] [phone] documented as of this encounter Visit Diagnoses Not on filedocumented in this encounter Care Teams Payroll Accounting Specialist Relationship Specialty Start Date End Date Teo Yoo MD [address] [place] [address] [address] [place] [address] PCP - General General Internal Medicine 02/06/22 documented as of this encounter
--- OUTSIDE RECORDS SUMMARY | 2025-02-02 13:53 | XMS_ITS | Encounter Summary ---
Author Organization [employer] ([place], [place], [place], [place]) Address [address] [place] [address] Care Team Providers Care [facility] Shift Lead Name Role Phone Teo Yoo MD Primary Care Provider [phone] Encounter Details Date Type Department Care Team (Late st Contact Info) Description 11/07/2019 Transcribed Document [facility] Cardiology [address] [place], [place] [phone] Edgardo Ayala MD [address] [place] [address] [address] [place] [address] Social History Tobacco Use Types Packs/Day Years Used Date Smoking Tobacco: Never Assessed Sex and Gender Information Value Date Recorded Sex Assigned at Not on file Legal Sex Male 1:10 PM CDT Gender Identity Not on file Sexual Orientation Not on file documented as of this encounter Miscellaneous Notes * Cerner Conversion Note - Edgardo Ayala MD - 11/07/2019 1:08 PM EDT DATE OF SERVICE: 11/03/2019 LEXISCAN STRESS TEST DIAGNOSIS: Shortness of breath, history of coronary artery disease with decreased exercise tolerance. READING PHYSICIAN: Dr. Edgardo Ayala. PRIMARY CARE: . DESCRIPTION OF PROCEDURE: The patient was brought to the cardiovascular lab and given Lexiscan infusion per protocol. Baseline heart rate 74 beats per minute augmenting to maximum 95 beats per minute. Baseline blood pressure 156/108 mmHg, augmenting to maximum 159/94 mmHg. The patient tolerated the procedure well. No complaints of chest pain or shortness of breath. Baseline ECG reveals sinus rhythm, premature atrial contractions, paced rhythm. The patient's baseline resting dose of technetium-99m IV was 11 mCi and stress dose 32.2 mCi technetium-99m IV was given at stress undergoing SPECT imaging after each dose. Images were also gated to evaluate regional wall motion and calculate left ventricular ejection fraction. IMPRESSION: Abnormal Lexiscan myocardial perfusion stress test. 1. Decreased radioisotope uptake in the inferior wall at rest and stress consistent with moderate inferior defect with no apparent reversibility. 2. No evidence of transient ischemic dilatation. TID ratio 1.1. 3. Stress ECG negative for diagnostic criteria for ischemia, although indeterminate secondary to paced rhythm. 4. Decreased left ventricular ejection fraction with left ventricular ejection fraction calculated at 23% with global hypokinesis. 5. Clinical correlation needed. Coronary angiography may be indicated for further cardiovascular risk stratification. /[id number] Edgardo Ayala MD TLG/AQ / TLG / MODL /[id number] documented in this encounter Plan of Treatment Upcoming Encounters Date Type Department Care Team (Late st Contact Info) Description 02/08/2025 1:45 PM EST Office Visit [facility] Cardiology [address] [place] [address] Christina Almonte MD [address] [place], [place] [phone] 04/05/2025 12:30 PM EST Office Visit [facility] Electrophysiology [address] [place] [phone] Kendall Malik MD [address] [facility] [address] [place], [place] [phone] documented as of this encounter Visit Diagnoses Not on filedocumented in this encounter Care Teams [facility] Shift Lead Relationship Specialty Start Date End Date Teo Yoo MD [address] [place] [address] [address] [place] [address] PCP - General General Internal Medicine 02/06/22 documented as of this encounter
--- OUTSIDE RECORDS SUMMARY | 2025-02-02 13:53 | XMS_ITS | Encounter Summary ---
Author Organization [employer] ([place], [place], [place], [place]) Address [address] [place] [address] Care Team Providers Care Dressage Judge Name Role Phone Teo Yoo MD Primary Care Provider [phone] Reason for Visit * Reason Comments Medication Refill Encounter Details Date Type Department Care Team (Late st Contact Info) Description 01/10/2025 Refill [facility] Electrophysiology [address] [place] [address] Kendall Malik MD [address] [facility] [address] [place] [address] Atrial fibrillation, persistent (HCC) Social History Tobacco Use Types Packs/Day Years [...] Date Record ed How often does anyone, inclu ding family and friends, physically hurt you? Never [...] your living situation today? I have a [facility] place to live 10/06/2024 Think [...] Do you speak a language other than Mongolian at [place]? No 10/06/2024 Do you want help with [...] EST Office Visit [facility] Cardiology [address] [place] [phone] Christnia Almonte MD [address] [place] [phone] 04/05/2025 12:30 PM EST Office Visit [facility] Electrophysiology [address] [place], [place] [phone] Kendall Malik MD [address] [place] [address] [address] [place] [address] documented as of this encounter Visit Diagnoses Diagnosis Atrial fibrillation, persistent (HCC) PAF (paroxysmal atrial fibrillation) (HCC)- Primary Atrial fibrillation Ischemic cardiomyopathy Other specified forms of chronic ischemic heart disease Primary hypertension Unspecified essential hypertension CVA (cerebral vascular accident) (HCC) Unspecified cerebral artery occlusion with cerebral infarction Chronic systolic congestive heart failure (HCC) CAD (coronary artery disease) Coronary atherosclerosis of unspecified type of vessel, [place] or graft Type 2 diabetes mellitus (HCC) QT prolongation History of DVT (deep vein thrombosis) AICD (automatic cardioverter/defibrillator) present Automatic implantable cardiac defibrillator in situ documented in this encounter Care Teams Dressage Judge Relationship Specialty Start Date End Date Teo Yoo MD [address] [place] [address] [address] [place] [address] PCP - General General Internal Medicine 02/06/22 documented as of this encounter
--- OUTSIDE RECORDS SUMMARY | 2025-02-02 13:53 | XMS_ITS | Encounter Summary ---
Author Organization [employer] ([place], [place], [place], [place]) Address [address] [place] [address] Care Team Providers Care Talent Engineer Name Role Phone Teo Yoo MD Primary Care Provider [phone]- [phone] Encounter Details Date Type Department Care Team (Late st Contact Info) Description 11/16/2019 Transcribed Document [facility] Family Medicine [facility] [place] [address] ProviderSanjiv MD [address] [place] [address] Social History Tobacco Use Types Packs/Day Years Used Date Smoking Tobacco: Never Assessed Sex and Gender Information Value Date Recorded Sex Assigned at Not on file Legal Sex Male 1:10 PM CDT Gender Identity Not on file Sexual Orientation Not on file documented as of this encounter Miscellaneous Notes * Cerner Conversion Note - Sanjiv Patton MD - 11/16/2019 2:50 PM CDT Nursing Discharge Summary Entered On: 11/16/2019 14:53 EDT Performed On: 11/16/2019 14:50 EDT by NATY MENDOZA RN Discharge Documentation Discharge Date/Time : 11/16/2019 15:15 EDT Patient Disposition, General : Discharge Discharge To : Home with ambulatory/outpatient follow-up Mode Of Departure, General Discharge : Private vehicle, Wheelchair Accompanied By, Discharge : Daughter IV Discontinued : Yes Personal Belongings With Patient : Yes Prescriptions Given to Patient : No Discharge Instructions Reviewed With, Opportunity For Questions Given : Daughter Patient Education Completed : Yes Teaching Method : Demonstration, Explanation Teaching Evaluation : Returns demonstration, Verbalizes understanding NATY MENDOZA RN - 11/16/2019 14:50 EDT Electronically signed by [facility] Conversion Meat Passer Cerner at 07/21/2022 5:31 PM CDT documented in this encounter Plan of Treatment Upcoming Encounters Date Type Department Care Team (Late st Contact Info) Description 02/08/2025 1:45 PM EST Office Visit [facility] Cardiology [address] [place] [address] Christina Almonte MD [address] [place], [place] [phone] 04/05/2025 12:30 PM EST Office Visit [facility] Electrophysiology [address] [place], [place] [phone] Kendall Malik MD [address] [place] [address] [address] [place] [phone] documented as of this encounter Visit Diagnoses Not on filedocumented in this encounter Care Teams Talent Engineer Relationship Specialty Start Date End Date Teo Yoo MD [address] [place] [address] [address] [place] [address] PCP - General General Internal Medicine 02/06/22 documented as of this encounter
--- OUTSIDE RECORDS SUMMARY | 2025-02-02 13:53 | XMS_ITS | Clinical Summary ---
Author Organization [facility] Address [address] [place] [address] Care Team Providers Care Junior Graphic Designer Name Role Phone Teo Yoo MD Primary Care Provider Medications metFORMIN (GLUCOPHAGE) 1000 MG tablet Take 1,000 mg by mouth 2 (Two) Times a Day With Meals. Active atorvastatin (LIPITOR) 80 MG tablet Take 80 mg by mouth Every Night. Active carvedilol (COREG) 12.5 MG tablet Take 12.5 mg by mouth 2 (Two) Times a Day With Meals. Active losartan (COZAAR) 25 MG tablet Take 25 mg by mouth 2 (Two) Times a Day. Active aspirin 81 MG chewable tablet Chew 81 mg Daily. Active furosemide (LASIX) 20 MG tablet Take 20 mg by mouth Daily. Active venlafaxine (EFFEXOR) 75 MG tablet Take 75 mg by mouth 2 (Two) Times a Day. Active glucose blood (OneTouch Verio) test strip Use as instructed 100 each 1 Active LIFESCAN FINEPOINT LANCETS misc 1 application 4 (Four) Times a Day Before Meals & at Bedtime. 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 Suspected cerebrovascular accident (CVA) 021 HTN (hypertension) 01/03/2021 HLD (hyperlipidemia) 01/03/2021 CAD (coronary artery disease) 01/03/2021 T2DM (type 2 diabetes mellitus) 01/03/2021 CHF (congestive heart failure) 01/03/2021 History of DVT (deep vein thrombosis) 01/03/2021 Presence of cardiac pacemaker 01/03/2021 Anxiety associated with depression 01/03/2021 Resolved Problems Problem Noted Date Diagnosed Date Resolved Date Hypomagnesemia 01/04/2021 01/05/2021 Family History Medical History Relation Name Comments Heart disease Father Diabetes Mother Relation Name Status Comments Father Mother Social History Tobacco Use Types Packs/Day Years Used Date Smoking Tobacco: Never Smokeless Tobacco: Never Alcohol Use Standard Drinks/Week Comments Never 0 (1 standard drink = 0.6 oz pur e alcohol) AUDIT-C Answer Date Recorded Q1: How often do you have a drink containing alc ohol? Never 01/03/2021 Average Number of Drinks Not on file 021 Frequency of Binge Drinking Not on file 12/07 Abuse Screen Answer Date Recorded Unsafe at Home or Work/School Not on file Feels Threatened by Someone? Not on file 12/2022 Does Anyone Keep You from Co ntacting Others or Doint Things Outside the Home? Not on file 01/13/2023 Physical Sign of Abuse Present Not on file 1 Housing Stability Answer Date Recorded Current Living Arrangements Not on file 12/2022 Potentially Unsafe Housing Conditions Not on santosh e 01/13/2023 Family and Community Support Answer Arvin e Recorded Help with Day-to-Day Activities Not on file 01/13/2023 Lonely or Isolated Not on file 01/13/2023 Employment Answer Date Recorded Do you want help finding or keeping work or a asad b? Not on file 01/13/2023 Disabilities Answer Date Recorded Concentrating, Remembering, or Making Decisions Difficulty Not on file 01/13/2023 Doing Errands Independently Difficulty Not on fi le 01/13/2023 Education Answer Date Recorded Help with school or training? Not on file Preferred Language Not on file 01/13/2023 Sex and Gender Information Value Date Recorded Sex Assigned at Not on file Legal Sex Male 11:32 AM EDT Gender Identity Not on file Sexual Orientation Not on file Last Filed Vital Signs Vital Sign Reading Time Taken Comments Blood Pressure 149/89 01/05/2021 11:20 AM EDT Pulse 73 01/05/2021 12:00 PM EDT Temperature 36.6 C (97.8 F) 01/05/2021 11:20 AM EDT Respiratory Rate 18 01/05/2021 11:20 AM EDT Oxygen Saturation 93% 01/05/2021 12:00 PM EDT Inhaled Oxygen Concentration - - Weight 111 kg (245 lb) 01/04/2021 1:40 PM EDT Height 175.3 cm (5' 9.02 ) 01/04/2021 1:40 PM ED T Body Mass Index 36.16 01/04/2021 1:40 PM EDT Plan of Treatment Health Maintenance Due Date Last Done Comments TDAP/TD VACCINES (1 - Tdap) 1972 COLOGUARD 1998 COLON CANCER SCREENING 5 YEAR SIGMOIDOSCOPY 1998 COLONOSCOPY 1998 [address] CANCER SCREENING 1998 CT COLONOGRAPHY 1998 FECAL OCCULT BLOOD TEST 1998 FIT Testing (1 year) 1998 Pneumococcal Vaccine 50+ (1 of 1 - PCV) 12/22/2003 ZOSTER VACCINE (1 of 2) 12/22/2003 AAA SCREEN ONCE 2018 ANNUAL PHYSICAL 01/06/2021 HEPATITIS C SCREENING 01/06/2021 LIPID PANEL 01/04/2022 01/04/2021 INFLUENZA VACCINE 11/05/2024 COVID-19 Vaccine ( season) 2024 HEMOGLOBIN A1C Discontinued 01/04/2021 Procedures Procedure Name Priority Date/Time Associated Diagnosis Comments HEMOGLOBIN A1C Routine 01/04/2021 12:11 PM EDT LIPID PANEL Routine 01/04/2021 12:11 PM EDT from Last 3 Months or Most Recently Relevant to Health Maintenance Results * (ABNORMAL) Hemoglobin A1c (01/04/2021 12:11 PM EDT) Hemoglobin A1C 8.80(H) 4.80 - 5.60 % 01/04/2021 12:48 PM EDT [facility] Blood Venipuncture / Unknown 01/04/2021 12:11 PM EDT 01/04/2021 12:23 PM EDT Narrative [facility] - 01/04/2021 12:48 PM EDT Hemoglobin A1C Ranges: Increased Risk for Diabetes 5.7% to 6.4% Diabetes >= 6.5% Diabetic Goal < 7.0% Ofelia Dillard APRN LAB BLOOD ORDERABLES Final Re sult [facility]
[address] [place] [address], * Lipid Panel (01/04/2021 12:11 PM EDT) Total Cholesterol 116 0 - 200 mg/dL 01/04/2021 1:07 PM EDT [facility] Triglycerides 117 0 - 150 mg/dL 01/04/2021 1:07 PM EDT [facility] HDL Cholesterol 49 40 - 60 mg/dL 01/04/2021 1:07 PM EDT [facility] LDL Cholesterol 46 0 - 100 mg/dL 01/04/2021 1:07 PM EDT [facility] VLDL Cholesterol 21 5 - 40 mg/dL 01/04/2021 1:07 PM EDT [facility] LDL/HDL Ratio 0.89 01/04/2021 1:07 PM EDT [facility] Blood Venipuncture / Unknown 01/04/2021 12:11 PM EDT 01/04/2021 12:24 PM EDT Narrative [facility] - 01/04/2021 1:07 PM EDT Cholesterol Reference Ranges (U.S. Department of Health and Human Services ATP III Classifications) Desirable <200 mg/dL Borderline High 200-239 mg/dL High Risk >240 mg/dL Triglyceride Reference Ranges (U.S. Department of Health and Human Services ATP III Classifications) Normal <150 mg/dL Borderline High 150-199 mg/dL High 200-499 mg/dL Very High >500 mg/dL HDL Reference Ranges (U.S. Department of Health and Human Services ATP III Classifcations) Low <40 mg/dl (major risk factor for CHD) High >60 mg/dl ('negative' risk factor for CHD) LDL Reference Ranges (U.S. Department of Health and Human Services ATP III Classifcations) Optimal <100 mg/dL Near Optimal 100-129 mg/dL Borderline High 130-159 mg/dL High 160-189 mg/dL Very High >189 mg/dL Ofelia Nishant CLINIC OFFICE MANAGER LAB BLOOD ORDERABLES Final Re sult [facility]
[address] [place] [address], from Last 3 Months or Most Recently Relevant to Health Maintenance Insurance MEDICARE A & B Advance Directives * CPR (Attempt to Resuscitate) (Latest Code Status on File) Date Activated Date Inactivated Comments 01/03/2021 10:45 PM 01/05/2021 4:20 PM Question Answer Comments Code Status (Patient has no pulse and is not breathing): CPR (Attempt to Resuscitate) Medical Interventions (Patie nt has pulse or is breathing): Full Care Teams Junior Graphic Designer Relationship Specialty Start Date End Date Teo Yoo MD [address] [place] [address] PCP - General Internal Medicine 01/03/21
--- OUTSIDE RECORDS SUMMARY | 2025-02-02 13:53 | XMS_ITS | Encounter Summary ---
Author Organization [facility] ([place], [place], [place], [place]) Address [address] [place] [address] Care Team Providers Care Crew Director Name Role Phone Teo Yoo MD Primary Care Provider [phone] Encounter Details Date Type Department Care Team (Late st Contact Info) Description 11/16/[address] [facility] [place] [address] ProviderSanjiv MD [address] [place] [id number] Social History Tobacco Use Types Packs/Day Years Used Date Smoking Tobacco: Never Assessed Sex and Gender Information Value Date Recorded Sex Assigned at Not on file Legal Sex Male 1:10 PM CDT Gender Identity Not on file Sexual Orientation Not on file documented as of this encounter Miscellaneous Notes * Cerner Conversion Note - Sanjiv Patton MD - 11/16/2019 2:49 PM CDT Patient Education Materials Follows: Moderate Conscious Sedation, Adult, Care After These instructions provide you with information about caring for yourself after your procedure. Your health care provider may also give you more specific instructions. Your treatment has been planned according to current medical practices, but problems sometimes occur. Call your health care provider if you have any problems or questions after your procedure. What can I expect after the procedure? After your procedure, it is common: ??? To feel sleepy for several hours. ??? To feel clumsy and have poor balance for several hours. ??? To have poor judgment for several hours. ??? To vomit if you eat too soon. Follow these instructions at home: For at least 24 hours after the procedure: ??? Do not: ? Participate in activities where you could fall or become injured. ? Drive. ? Use heavy machinery. ? Drink alcohol. ? Take sleeping pills or medicines that cause drowsiness. ? Make important decisions or sign legal documents. ? Take care of children on your own. ??? Rest. Eating and drinking ??? Follow the diet recommended by your health care provider. ??? If you vomit: ? Drink water, juice, or soup when you can drink without vomiting. ? Make sure you have little or no nausea before eating solid foods. General instructions ??? Have a responsible adult stay with you until you are awake and alert. ??? Take msps-svv-nbleiwf and prescription medicines only as told by your health care provider. ??? If you smoke, do not smoke without supervision. ??? Keep all follow-up visits as told by your health care provider. This is important. Contact a health care provider if: ??? You keep feeling nauseous or you keep vomiting. ??? You feel light-headed. ??? You develop a rash. ??? You have a fever. Get help right away if: ??? You have trouble breathing. This information is not intended to replace advice given to you by your health care provider. Make sure you discuss any questions you have with your health care provider. Document Released: 01/12/2014 Document Revised: 03/06/2018 Document Reviewed: 07/13/2016 [employer] Patient Education ? 2020 [employer]. Groin Site Care Refer to this sheet in the next few weeks. These instructions provide you with information on caring for yourself after your procedure. Your caregiver may also give you more specific instructions. Your treatment has been planned according to current medical practices, but problems sometimes occur. Call your caregiver if you have any problems or questions after your procedure. HOME CARE INSTRUCTIONS ? You may shower 24 hours after the procedure. Remove the bandage (dressing ) and gently wash the site with plain soap and water. Gently pat the site dry. ? Do not apply powder or lotion to the site. ? Do not sit in a bathtub, swimming pool, or whirlpool for 5 to 7 days. ? No bending, squatting, or lifting anything over 10 pounds (4.5 kg) as directed by your caregiver. ? Inspect the site at least twice daily. ? Do not drive home if you are discharged the same day of the procedure. Have someone else drive you. ? You may drive 24 hours after the procedure unless otherwise instructed by your caregiver. What to expect: ? Any bruising will usually fade within 1 to 2 weeks. ? Blood that collects in the tissue (hematoma ) may be painful to the touch. It should usually decrease in size and tenderness within 1 to 2 weeks. SEEK IMMEDIATE MEDICAL CARE IF: ? You have unusual pain at the groin site or down the affected leg. ? You have redness, warmth, swelling, or pain at the groin site. ? You have drainage (other than a small amount of blood on the dressing). ? You have chills. ? You have a fever or persistent symptoms for more than 72 hours. ? You have a fever and your symptoms suddenly get worse. ? Your leg becomes pale, cool, tingly, or numb. ? You have heavy bleeding from the site. Hold pressure on the site. Document Released: 04/26/2011 Document Revised: 06/15/2012 Document Reviewed: 04/26/2011 ExitCare? Patient Information ?2013 [employer]. Angiogram, Care After This sheet gives you information about how to care for yourself after your procedure. Your health care provider may also give you more specific instructions. If you have problems or questions, contact your health care provider. What can I expect after the procedure? After the procedure, it is common to have bruising and tenderness at the catheter insertion area. Follow these instructions at home: Insertion site care ??? Follow instructions from your health care provider about how to take care of your insertion site. Make sure you: ? Wash your hands with soap and water before you change your bandage (dressing). If soap and water are not available, use hand assembler rubber footwear. ? Change your dressing as told by your health care provider. ? Leave stitches (sutures), skin glue, or adhesive strips in place. These skin closures may need to stay in place for 2 weeks or longer. If adhesive strip edges start to loosen and curl up, you may trim the loose edges. Do not remove adhesive strips completely unless your health care provider tells you to do that. ??? Do not take baths, swim, or use a hot tub until your health care provider approves. ??? You may shower 24?48 hours after the procedure or as told by your health care provider. ? Gently wash the site with plain soap and water. ? Pat the area dry with a clean towel. ? Do not rub the site. This may cause bleeding. ??? Do not apply powder or lotion to the site. Keep the site clean and dry. ??? Check your insertion site every day for signs of infection. Check for: ? Redness, swelling, or pain. ? Fluid or blood. ? Warmth. ? Pus or a bad smell. Activity ??? Rest as told by your health care provider, usually for 1?2 days. ??? Do not lift anything that is heavier than 10 lbs. (4.5 kg) or as told by your health care provider. ??? Do not drive for 24 hours if you were given a medicine to help you relax (sedative). ??? Do not drive or use heavy machinery while taking prescription pain medicine. General instructions ??? Return to your normal activities as told by your health care provider, usually in about a week. Ask your health care provider what activities are safe for you. ??? If the catheter site starts bleeding, lie flat and put pressure on the site. If the bleeding does not stop, get help right away. This is a medical emergency. ??? Drink enough fluid to keep your urine clear or pale yellow. This helps flush the contrast dye from your body. ??? Take rbss-ycc-lfumyyp and prescription medicines only as told by your health care provider. ??? Keep all follow-up visits as told by your health care provider. This is important. Contact a health care provider if: ??? You have a fever or chills. ??? You have redness, swelling, or pain around your insertion site. ??? You have fluid or blood coming from your insertion site. ??? The insertion site feels warm to the touch. ??? You have pus or a bad smell coming from your insertion site. ??? You have bruising around the insertion site. ??? You notice blood collecting in the tissue around the catheter site (hematoma). The hematoma may be painful to the touch. Get help right away if: ??? You have severe pain at the catheter insertion area. ??? The catheter insertion area swells very fast. ??? The catheter insertion area is bleeding, and the bleeding does not stop when you hold steady pressure on the area. ??? The area near or just beyond the catheter insertion site becomes pale, cool, tingly, or numb. These symptoms may represent a serious problem that is an emergency. Do not wait to see if the symptoms will go away. Get medical help right away. Call your local emergency services (911 in the [place] Do not drive yourself to the hospital. Summary ??? After the procedure, it is common to have bruising and tenderness at the catheter insertion area. ??? After the procedure, it is important to rest and drink plenty of fluids. ??? Do not take baths, swim, or use a hot tub until your health care provider says it is okay to do so. You may shower 24?48 hours after the procedure or as told by your health care provider. ??? If the catheter site starts bleeding, lie flat and put pressure on the site. If the bleeding does not stop, get help right away. This is a medical emergency. This information is not intended to replace advice given to you by your health care provider. Make sure you discuss any questions you have with your health care provider. Document Released: 10/10/2005 Document Revised: 03/06/2018 Document Reviewed: 02/26/2017 [employer] Patient Education ? 2020 [employer] Angiogram An angiogram is a procedure used to examine the blood vessels. In this procedure, contrast dye is injected through a long, thin tube (catheter) into an artery. X-rays are then taken, which show if there is a blockage or problem in a blood vessel. The catheter may be inserted in: ??? Your groin area. This is the most common. ??? The fold of your arm, near your elbow. ??? Your wrist. Tell a health care provider about: ??? Any allergies you have, including allergies to shellfish or contrast dye. ??? All medicines you are taking, including vitamins, herbs, eye drops, creams, and xmmn-cqd-oyvgmrv medicines. ??? Any problems you or family members have had with anesthetic medicines. ??? Any blood disorders you have. ??? Any surgeries you have had. ??? Any previous kidney problems or failure you have had. ??? Any medical conditions you have. ??? Whether you are or may be . ??? Whether you are . What are the risks? Generally, this is a safe procedure. However, problems may occur, including: ??? Infection or bruising at the catheter area. ??? Damage to other structures or organs, including rupture of blood vessels or damage to arteries. ??? Allergic reaction to the contrast dye used. ??? Kidney damage from the contrast dye used. ??? Blood clots that can lead to a stroke or heart attack. What happens before the procedure? Staying hydrated Follow instructions from your health care provider about hydration, which may include: ??? Up to 2 hours before the procedure ? you may continue to drink clear liquids, such as water, clear fruit juice, black coffee, and plain tea. Eating and drinking restrictions Follow instructions from your health care provider about eating and drinking, which may include: ??? 8 hours before the procedure ? stop eating heavy meals or foods such as meat, fried foods, or fatty foods. ??? 6 hours before the procedure ? stop eating light meals or foods, such as toast or cereal. ??? 6 hours before the procedure ? stop drinking milk or drinks that contain milk. ??? 2 hours before the procedure ? stop drinking clear liquids. General instructions ??? Ask your health care provider about: ? Changing or stopping your normal medicines. This is important if you take diabetes medicines or blood thinners. ? Taking medicines such as aspirin and ibuprofen. These medicines can thin your blood. Do not take these medicines before your procedure if your doctor tells you not to. ??? You may have blood samples taken. ??? Plan to have someone take you home from the hospital or clinic. ??? If you will be going home right after the procedure, plan to have someone with you for 24 hours. What happens during the procedure? To reduce your risk of infection: ? Your health care team will wash or sanitize their hands. ? Your skin will be washed with soap. ? Hair may be removed from the insertion area. ??? You will lie on your back on an X-ray table. You may be strapped to the table if it is tilted. ??? An IV tube will be inserted into one of your veins. ??? Electrodes may be placed on your chest to monitor your heart rate during the procedure. ??? You will be given one or more of the following: ? A medicine to help you relax (sedative). ? A medicine to numb the area where the catheter will be inserted (local anesthetic). ??? The catheter will be inserted into an artery using a guide wire. A type of X-ray (fluoroscopy) will be used to help guide the catheter to the blood vessel to be examined. ??? A contrast dye will then be injected into the catheter, and X-rays will be taken. The contrast will help to show where any narrowing or blockages are located in the blood vessels. You may feel flushed as the contrast dye is injected. ??? After the X-ray is complete, the catheter will be removed. ??? A bandage (dressing) will be placed over the site where the catheter was inserted. Pressure will be applied to help stop any bleeding. The procedure may vary among health care providers and hospitals. What happens after the procedure? Your blood pressure, heart rate, breathing rate, and blood oxygen level will be monitored until the medicines you were given have worn off. ??? You will be kept in bed lying flat for several hours. If the catheter was inserted through your leg, you will be instructed not to bend or cross your legs. ??? The insertion area and the pulse in your feet or wrist will be checked frequently. ??? You will be instructed to drink plenty of fluids. This will help wash the contrast dye out of your body. ??? Additional blood tests and X-rays may be done. ??? Tests to check the electrical activity in your heart (electrocardiogram) may be done. ??? Do not drive for 24 hours if you received a sedative. ??? It is up to you to get the results of your procedure. Ask your health care provider, or the department that is doing the procedure, when your results will be ready. Summary ??? An angiogram is a procedure used to examine the blood vessels. ??? In this procedure, contrast dye is injected through a long, thin tube (catheter) into an artery. X-rays are then taken. ??? Before the procedure, follow your health care provider's instructions about eating and drinking restrictions. You may be asked to stop eating and drinking several hours before the procedure. ??? After the procedure, you will need to lie flat for several hours and drink plenty of fluids. This information is not intended to replace advice given to you by your health care provider. Make sure you discuss any questions you have with your health care provider. Document Released: 01/01/2006 Document Revised: 03/06/2018 Document Reviewed: 04/30/2017 [employer] Patient Education ? 2019 [employer]. Electronically signed by Srinivasan Smith Conversion Locomotive Repairer Diesel Cerner at 07/21/2022 5:40 PM CDT documented in this encounter Plan of Treatment Upcoming Encounters Date Type Department Care Team (Late st Contact Info) Description 02/08/2025 1:45 PM EST Office Visit [facility] [address] [place], [place] [phone] Christina Almonte MD [address] [place], [place] [id number] 04/05/2025 12:30 PM EST Office Visit [facility] Electrophysiology [address] [place], [place] [phone] Kendall Malik MD [address] [place] [address] [address] [place] [address] documented as of this encounter Visit Diagnoses Not on filedocumented in this encounter Care Teams Crew Director Relationship Specialty Start Date End Date Teo Yoo MD [address] [place] [address] [address] [place] [address] PCP - General General Internal Medicine 02/06/22 documented as of this encounter
--- OUTSIDE RECORDS SUMMARY | 2025-02-02 13:53 | XMS_ITS | Encounter Summary ---
Author Organization [employer] ([place], [place], [place], [place]) Address [address] [place] [address] Care Team Providers Care Stone Carriage Operator Name Role Phone Teo Yoo MD Primary Care Provider [phone] Encounter Details Date Type Department Care Team (Late st Contact Info) Description 11/16/2019 Transcribed Document [facility] [place] [facility] [place] [address] ProviderSanjiv MD [address] [place] [address] Social History Tobacco Use Types Packs/Day Years Used Date Smoking Tobacco: Never Assessed Sex and Gender Information Value Date Recorded Sex Assigned at Not on file Legal Sex Male 1:10 PM CDT Gender Identity Not on file Sexual Orientation Not on file documented as of this encounter Miscellaneous Notes * Cerner Conversion Note - Historical ProviderMD - 11/16/2019 9:46 AM CDT Pre Procedure Adult Entered On: 11/16/2019 9:51 EDT Performed On: 11/16/2019 9:46 EDT by NATY MENDOZA RN Height and Weight, Clinical Dosing Height Source : Measured Height Entry Format : [place] Height, Feet : 5 ft(Converted to: 152 cm, 60 Inch) Height, Inches : 11 Inch(Converted to: 0 ft 11 Inch, 27.94 cm) Clinical Height : 180.34 cm Weight Source : Standing scale Weight Entry Format : [place] Clinical Dosing Weight : 110.45 kg Weight, Pounds : 243 lb Weight, Ounces : 0 oz Body Surface Area (BSA) : 2.29 m2 Body Mass Index : 34 kg/m2 (HI) [place] Body Weight : 74 kg NATY MENDOZA RN - 11/16/2019 9:46 EDT Health Histories Smoking Status : Never (less than 100 in lifetime; none in last 30 days) Smokeless Tobacco Status : Never NATY MENDOZA RN - 11/16/2019 9:46 EDT Social History (As Of: 11/16/2019 09:51:36 EDT) Tobacco: Smoking Status Never smoker. (Last Updated: 10/03/2014 15:48:51 EDT by RAUDEL BARRETT MD-EMR) Alcohol: Alcohol Use History No. (Last Updated: 10/03/2014 15:48:44 EDT by RAUDEL BARRETT MD-EMR) Infectious Disease History Has the patient ever been tested for COVID-19? : Yes, Patient stated results Negative Date of COVID-19 test known? : Yes Does patient have symptoms of COVID-19? : No COVID19 Screening : No Experiencing Infectious Disease Symptoms : No symptoms Physical contact outside [place] in the last 30 days : No Infectious Disease History : None Tuberculosis Symptoms : Fatigue NATY MENDOZA RN - 11/16/2019 9:46 EDT COVID19 PreProcedure Screening Is this an Emergent or Add on Procedure? : No Has patient been isolated since the test : Yes Exposed to COVID19 symptoms since test? : No NATY MENDOZA RN - 11/16/2019 9:46 EDT Anesthesia/Transfusion History Family History of Anesthesia Reaction : No prior transfusion(s) Transfusion History : Prior anesthesia without reaction Family History of Anesthesia Reaction : Other: brother due to anesthesia complication, does not know specifically what the complication was called. NATY MENDOZA RN - 11/16/2019 9:46 EDT Functional Assessment Living Situation : Home Patient Lives With : Spouse Current Home Treatments : None NATY MENDOZA RN - 11/16/2019 9:46 EDT [place] Suicide Severity Rating Scale (C-SSRS) CSSRS Past Month Wish to be : No CSSRS Past Month Suicidal Thoughts : No CSSRS Lifetime Suicide Behavior : No Suicide Severity Rating Score : 0 Suicide Severity Rating : No Additional Care Required at this time NATY MENDOZA RN - 11/16/2019 9:46 EDT Psychosocial History Chronic/Terminal Illness w/Freq Visits : Yes Do You Have a History of the Following? : Anxiety, Depression Currently in Unsafe Situation : No NATY MENDOZA RN - 11/16/2019 9:46 EDT Advance Directive Patient has Advance Directive *Q : No, patient refuses Advance Directive information NATY MENDOZA RN - 11/16/2019 9:46 EDT Teaching/Learning Assessment Barriers To Learning : None evident Individuals Taught : Patient, Child Readiness to Learn : Cooperative Learning Style Preferences Patient : Demonstration, Verbal explanation Learning Style Preferences Family : Demonstration, Verbal explanation NATY MENDOZA RN - 11/16/2019 9:46 EDT Education Topics, Periop Preadmission Perioperative Education [place] : Verbalizes understanding Infection Control : Verbalizes understanding IV's : Verbalizes understanding NPO Status/Directions : Verbalizes understanding Pain Management : Verbalizes understanding Postoperative Care Preparations : Verbalizes understanding Preprocedure Preparations : Verbalizes understanding Preprocedure Tests/Labs : Verbalizes understanding NATY MENDOZA RN - 11/16/2019 9:46 EDT General Info Preferred Name : Dennis Legal Guardian : No Support Person/Patient Financial Services Education Consultant : No Support Person/Pt Rep Name : Ale Support Person/Pt Rep Contact Information : [phone] Want Family/Rep/Phys Notified of Admit : No Emergency Contact #1 : Serena David Emergency Contact #1 Emergency Contact #1 Relationship : daughter Emergency Contact #2 : z Emergency Contact #2 Phone Number : z Emergency Contact #2 Relationship : z Primary Language : Yi Preferred Communication Mode : Verbal Communication Barrier : None City Solicitor Needed : No NATY MENDOZA RN - 11/16/2019 9:46 EDT Sleep Apnea Risk Assmt Hx of Obstructive Sleep Apnea Diagnosis : No Snore Loudly : No Tired, Fatigued, or Sleepy During Day : Yes Observed Stopping Breathing During Sleep : No Have/Are Being Treated for Hypertension : Yes BMI Greater Than 35 kg/m2 : No Age over 50 Years Old : Yes Neck Circumference Greater Than 40 cm : Yes Gender Male : Yes STOP-BANG Sleep Apnea Risk Level Score : 5 NATY MENDOZA RN - 11/16/2019 9:46 EDT Duarte Scale Duarte Sensory Perception : No impairment Duarte Moisture : Rarely moist Duarte Activity : Walks frequently Duarte Mobility : No limitation Duarte Nutrition : Adequate Duarte Friction and Shear : No apparent problem Duarte Score : 22 NATY MENDOZA RN - 11/16/2019 9:46 EDT Pain Assessment Pain Assessment : Initial assessment Pain Scale Used : 0-10 Scale NATY MENDOZA RN - 11/16/2019 9:46 EDT Fall Risk Scales ABCs Fall Injury Risk Identification : None TAMAYO Hx Falls Immediate/Within 3 Months : No Tamayo Secondary Diagnosis : No TAMAYO Use of Ambulatory Aid : Bed rest/Nurse assist ATMAYO IV Therapy or IV Access : Yes Tamayo Gait/Transferring : Normal, bedrest, immobile Tamayo Mental Status : Oriented to own ability Tamayo Fall Risk Score : 20 TAMAYO Fall Scale Risk Level : 0-24 Low Risk Romeo Fall Interventions : Adequate lighting, Assistive devices within reach, Bed in low position, Call device within reach, Fall prevention handout/education per facility policy, Hourly comfort/safety rounds, Non-slip footwear, Personal items within reach, Reinforced to call for assistance before getting out of bed, Room free of clutter/spills, Upper side-rails up, Wheels locked, Wires/Cords secured NATY MENDOZA RN - 11/16/2019 9:46 EDT Valuables and Belongings Valuables and Belongings : Clothing Clothing : Common streetwear Clothing Disposition : Bedside NATY MENDOZA RN - 11/16/2019 9:46 EDT Pain Scale Intensity : 0 NATY MENDOZA RN - 11/16/2019 9:46 EDT Image 4 - Images currently included in the form version of this document have not been included in the text rendition version of the form. documented in this encounter Plan of Treatment Upcoming Encounters Date Type Department Care Team (Late st Contact Info) Description 02/08/2025 1:45 PM EST Office Visit [facility] Cardiology [address] [place] [phone] Christina Almonte MD [address] [place] [phone] 04/05/2025 12:30 PM EST Office Visit [facility] Electrophysiology [address] [place] [address] [place] [address] [place] [address] [address] [place] [address] documented as of this encounter Visit Diagnoses Not on filedocumented in this encounter Care Teams Stone Carriage Operator Relationship Specialty Start Date End Date Teo Yoo MD [address] [place] [address] [address] [place] [address] PCP - General General Internal Medicine 02/06/22 documented as of this encounter
--- OUTSIDE RECORDS SUMMARY | 2025-02-02 13:53 | XMS_ITS | Encounter Summary ---
Author Organization [email or web address] ([place], [place], [place], [place]) Address [address] [place] [address] Care Team Providers Care Legal Editor Name Role Phone Ky Moore MD Primary Care Provider [phone]- [phone] Encounter Details Date Type Department Care Team (Late st Contact Info) Description 11/16/2019 Transcribed Document [facility] [place] [facility] [place] [address] ProviderSanjiv MD [address] [place] [address] Social History Tobacco Use Types Packs/Day Years Used Date Smoking Tobacco: Never Assessed Sex and Gender Information Value Date Recorded Sex Assigned at Not on file Legal Sex Male 1:10 PM CDT Gender Identity Not on file Sexual Orientation Not on file documented as of this encounter Miscellaneous Notes * Cerner Conversion Note - Sanjiv Patton MD - 11/16/2019 2:57 PM CDT [facility] [address] DIEGO ADAMSON :1955 Visit Time:11/16/2019 Your Visit Summary Your Care Team Admitting Physician - SHANIKA MARTINEZ MD-CAR Attending Physician - SHANIKA MARTINEZ MD-CAR Primary Care Physician - [place] MOORE (REF)MD-PED Referring Physician - SHANIKA MARTINEZ MD-CAR Your Diagnosis Abnormal result of other cardiovascular function study, Abnormal result of other cardiovascular function study Discharge Vitals Heart Rate (Monitored) 72 Respiratory Rate 16 Blood Pressure 156/83 What to do next Instructions From Your Care Team Diet after Discharge: Resume usual diet as tolerated Activity after Discharge: Rest and relax today, No strenuous activity, No lifting/pushing/pulling more than 10 pounds for 1 week., _ Driving Restrictions: No driving for 24 hours. Showering/Bathing: No showering for 24 hours., No tub bathing, soaking or swimming for 3-5 days until site is healed. Medications: No changes to your current home medications., _, _ Dressing Instructions: You can remove the dressing in 24 hours., _, _ Discharge Follow Up Instructions: Follow up with Jason Martinez APRN in 2-4weeks Follow-Up Appointments Follow Up with SHANIKA MARTINEZ MD-CAR When Where: [address] [place], [place] [id number]- Follow Up with Follow up with primary care provider When Comments Follow-up as instructed Medications What How Much When Instructions Next Dose aspirin (Aspirin Enteric Coated 81 mg oral delayed release tablet) 1 Tablet(s) Oral Every Day atorvastatin (atorvastatin 80 mg oral tablet) 1 Tablet(s) Oral Every Day furosemide (Lasix 40 mg oral tablet) Oral Every Day losartan (losartan 25 mg oral tablet) 1 Tablet(s) Oral Two Times A Day metFORMIN (metFORMIN 850 mg oral tablet) 1 Tablet(s) Oral Two Times A Day hold until 03-16-16 nitroglycerin (Nitrostat 0.4 mg sublingual tablet) 1 Tablet(s) SubLINgual Every 5 minutes as needed for as needed for chest pain venlafaxine (venlafaxine 75 mg oral tablet) Oral Two Times A Day Take your medications faithfully. Do NOT skip medication. Do NOT stop taking medications without the direction of a physician. Carry a list of your medications with you at all times, and take this medication list with you to your first follow up visit. Report any side effects. Avoid herbal remedies unless discussed with your physician. As part of your treatment plan, your physician may have prescribed a limited course of a controlled substance. This medication may be given to help people with moderate or severe pain or for other medical conditions, but there are risks involved with treatment. Common side effects may include nausea, constipation, drowsiness, sweating, itching, dry mouth, and rash. More serious side effects may include cognitive and motor impairment, like problems with thinking, concentrating, alertness, and movement (e.g. slowed reflexes), and driving and operating heavy machinery can be dangerous. It is important for you to talk to your physician if you have these side effects or questions. These controlled substances can produce physical dependence and be habit-forming if taken for an extended period of time, which means that the body has gotten used to them and may experience withdrawal symptoms if they are abruptly stopped. Withdrawal symptoms can include runny nose, sweating, goose bumps, diarrhea, abdominal cramping, rapid heartbeat, difficulty sleeping, and nervousness. Please dispose of unused and medications per your retail pharmacy guidance. Allergies No Known Allergies Immunizations This Visit No Immunizations Found Education Materials Moderate Conscious Sedation, Adult, Care After These [...] you are awake and alert. ??? Take xzzb-jfl-ulclren and prescription medicines only as told by [...] 01/12/2014 Document Revised: 03/06/2018 Document Reviewed: 07/13/2016 [employer] Patient Education ?? 2020 [employer]. Groin Site Care Refer to this sheet [...] questions after your procedure. HOME CARE INSTRUCTIONS ??? You may shower 24 hours after the procedure. Remove the bandage (dressing ) and gently wash the site with plain soap and water. Gently pat the site dry. ??? Do not apply powder or lotion to the site. ??? Do not sit in a bathtub, swimming pool, or whirlpool for 5 to 7 days. ??? No bending, squatting, or lifting anything over 10 pounds (4.5 kg) as directed by your caregiver. ??? Inspect the site at least twice daily. ??? Do not drive home if you are discharged the same day of the procedure. Have someone else drive you. ??? You may drive 24 hours after the procedure unless otherwise instructed by your caregiver. What to expect: ??? Any bruising will usually fade within 1 to 2 weeks. ??? Blood that collects in the tissue (hematoma ) may be painful to the touch. It should usually decrease in size and tenderness within 1 to 2 weeks. SEEK IMMEDIATE MEDICAL CARE IF: ??? You have unusual pain at the groin site or down the affected leg. ??? You have redness, warmth, swelling, or pain at the groin site. ??? You have drainage (other than a small amount of blood on the dressing). ??? You have chills. ??? You have a fever or persistent symptoms for more than 72 hours. ??? You have a fever and your symptoms suddenly get worse. ??? Your leg becomes pale, cool, tingly, or numb. ??? You have heavy bleeding from the site. Hold pressure on the site. Document Released: 04/26/2011 Document Revised: 06/15/2012 Document Reviewed: 04/26/2011 ExitCare?? Patient Information ??2014 [employer]. Angiogram, Care After This sheet gives you [...] and water are not available, use hand turner machine operator. ? Change your dressing as told by [...] care provider approves. ??? You may shower 24???48 hours after the procedure or as told [...] by your health care provider, usually for 1???2 days. ??? Do not lift anything that [...] contrast dye from your body. ??? Take nzje-edp-oohmedp and prescription medicines only as told by [...] okay to do so. You may shower 24???48 hours after the procedure or as told [...] 10/10/2005 Document Revised: 03/06/2018 Document Reviewed: 02/26/2017 [employer] Patient Education ?? 2020 [employer]. Angiogram An angiogram is a procedure used [...] including vitamins, herbs, eye drops, creams, and zbau-vyl-mglfwse medicines. ??? Any problems you or family [...] Up to 2 hours before the procedure ??? you may continue to drink clear liquids, such as water, clear fruit juice, black coffee, and plain tea. Eating and drinking restrictions Follow instructions from your health care provider about eating and drinking, which may include: ??? 8 hours before the procedure ??? stop eating heavy meals or foods such as meat, fried foods, or fatty foods. ??? 6 hours before the procedure ??? stop eating light meals or foods, such as toast or cereal. ??? 6 hours before the procedure ??? stop drinking milk or drinks that contain milk. ??? 2 hours before the procedure ??? stop drinking clear liquids. General instructions ??? [...] 01/01/2006 Document Revised: 03/06/2018 Document Reviewed: 04/30/2017 [employer] Patient Education ?? 2020 [employer] Emergency Awareness and Preventative Care STROKE is an EMERGENCY Every Minute Counts Act FAST and Check for these signs: FACE Does the face look uneven? ARM Does one arm drift down? SPEECH Does their speech sound strange? TIME Call at any sign of stroke Stroke Risk Factors Atrial Fibrillation (irregular heartbeat) Diabetes Family history of stroke Heart Disease Heavy alcohol use High Blood Pressure High Cholesterol Physical inactivity and obesity Smoking Cigarette Smoking The facts are clear, cigarette smoking will shorten your life. Smoking can cause many illnesses along the way. As a healthcare provider, we recommend that you stop smoking. Assistance with quitting is available by contacting 3-669-CUDANOW. This is a free resource providing counseling, support, and referral. Or you may contact your personal physician. Utility Funding Suicide Prevention Lifeline: The National Suicide Prevention Lifeline is a national network of local crisis centers that provides free and confidential emotional support to people in suicidal crisis or emotional distress 24 hours a day, 7 days a week. Don't Wait! Stop a Heart Attack Before it Starts What is a heart attack? A heart attack is damage or to a part of the heart from severely decreased or lack of blood flow to the heart. Over time, arteries can become narrow from the buildup of fat and cholesterol, which is called plaque. The plaque can rupture causing a blood clot to form. When the blood clot forms, the artery can become severely narrowed or completely blocked, causing a heart attack. Heart attack is the leading cause of in the [place]. 85% of muscle damage occurs within the first 2 hours. Delay in the recognition of heart attack symptoms increases the chances of . Know the early symptoms of a heart attack: Nausea Feeling of fullness in chest Jaw Pain Pain that travels down one or both arms Fatigue/being tired Anxiety Back Pain Chest pressure, squeezing, or discomfort Shortness of breath Sweating, or a cold sweat Feeling of impending doom There are unusual signs of a heart attack, too! Women, the elderly, and diabetics may present with atypical symptoms: Fainting/dizziness Weakness Confusion Risk Factors for a Heart Attack Some heart disease risk factors, such as age and family history, cannot be changed. Others, like smoking and lack of exercise, can be changed. Smoking High Cholesterol High Blood Pressure Family History Obesity Age Gender (Males are at higher risk) Lack of Exercise Diabetes Diet Stress Excessive Alcohol Intake If you or someone you know is experiencing the signs and symptoms of a heart attack, DON???T DELAY. Call immediately and seek help. If someone collapses, perform CPR! Do not attempt to drive if you are having symptoms of heart attack. Hands-Only CPR Why Hands-Only CPR? Hands-Only CPR has been shown to be as effective as conventional CPR for cardiac arrests that occur outside of a hospital. Survival depends on immediately receiving CPR from someone nearby. How do you perform Hands-Only CPR? There are two easy steps: Call if you see a teen or adult collapse Push hard and fast in the center of the chest at a beat of 100 beats per minute. Save a life! 4 WAYS TO GET AHEAD OF SEPSIS SEPSIS is a MEDICAL EMERGENCY. Time matters! Infections put you and your family at risk for a life-threatening condition called sepsis. Sepsis is the body's extreme response to an infection. It is life-threatening, and without timely treatment, sepsis can rapidly lead to tissue damage, organ failure, and . Sepsis happens when an infection you already have-in your skin, lungs, urinary tract or somewhere else-triggers a chain reaction throughout your body. 1 PREVENT INFECTIONS Take good care of chronic conditions. Talk to your doctor about getting the recommended vaccines. 2 PRACTICE GOOD HYGIENE Wash your hands frequently. Keep cuts or open sores clean and covered until they are healed. 3 KNOW THE SYMPTOMS Confusion or disorientation Shortness of breath High heart rate Fever, shivering, or feeling very cold Extreme pain or discomfort Clammy or sweaty skin 4 ACT FAST Get medical care IMMEDIATELY if you suspect sepsis or if you have an infection that is not getting better or is getting worse. To learn more about sepsis and how to prevent infections, visit www.cdc.gov/sepsis. Test Results Laboratory or Other Results This Visit (last charted value for your 11/16/2019 visit) Hematology 11/16/2019 10:04 AM Platelet Count: 180 K/uL -- Normal range between ( 163 and 369 ) Microbiology 11/12/2019 1:00 PM Novel Coronavirus 2019: Not Detected Patient Name:DIEGO ADAMSON I have received and understand this information and was given the opportunity to ask questions. Patient/Oil Rag Washer Name: Patient/Oil Rag Washer Signature: Relationship to Patient: Clinician/Hospital Oil Rag Washer Signature: Date: documented in this encounter Plan of Treatment Upcoming Encounters Date Type Department Care Team (Late st Contact Info) Description 02/08/2025 1:45 PM EST Office Visit [facility] Cardiology [address] [place], [place] [phone] Christina Almonte MD [address] [place], [place] [phone] 04/05/2025 12:30 PM EST Office Visit [facility] Electrophysiology [address] [place], [place] [phone] Kendall Malik MD [address] [place] [address] [address] [place] [phone] documented as of this encounter Visit Diagnoses Not on filedocumented in this encounter Care Teams Legal Editor Relationship Specialty Start Date End Date Ky Moore MD [address] [place] [address] [address] [place] [id number] PCP - General General Internal Medicine 02/06/22 documented as of this encounter
--- OUTSIDE RECORDS SUMMARY | 2025-02-02 13:53 | XMS_ITS | Encounter Summary ---
Author Organization [email or web address] ([place], [place], [place], [place]) Address [address] [place] [address] Care Team Providers Care Sheet Roller Operator Name Role Phone Teo Yoo MD Primary Care Provider [phone] Encounter Details Date Type Department Care Team (Late st Contact Info) Description 11/20/2019 Transcribed Document [facility] Cardiology [address] [place] [phone] [place] [address] [place] [address] [address] [place] [address] Social History Tobacco Use Types Packs/Day Years Used Date Smoking Tobacco: Never Assessed Sex and Gender Information Value Date Recorded Sex Assigned at Not on file Legal Sex Male 1:10 PM CDT Gender Identity Not on file Sexual Orientation Not on file documented as of this encounter Miscellaneous Notes * Cerner Conversion Note - Kandy Marte MD - 11/20/2019 11:33 AM EDT HISTORY AND PHYSICAL UPDATE Update [...] Description 02/08/2025 1:45 PM EST Office Visit [facility] Cardiology [address] [place] [address] Christina Almonte MD [address] [place] [address] 04/05/2025 12:30 PM EST Office Visit [facility] Electrophysiology [address] [place], [place] [phone] Kendall Malik MD [address] [place] [address] [address] [place] [phone] documented as of this encounter Visit Diagnoses Not on filedocumented in this encounter Care Teams Sheet Roller Operator Relationship Specialty Start Date End Date Teo Yoo MD [address] [place] [address] [address] [place] [address] PCP - General General Internal Medicine 02/06/22 documented as of this encounter
--- OUTSIDE RECORDS SUMMARY | 2025-02-02 13:53 | XMS_ITS | Referral Summary ---
Author Organization [employer] ([place], [place], [place], [place]) Address [address] [place] [address] Care Team Providers Care Plate Glass Installer Name Role Phone Teo Yoo MD Primary Care Provider Encounters Date Type Department Care Team Description 01/10/2025 Refill [facility] Electrophysiology [address] [place] [phone] Kendall Malik MD Atrial fibrillation, persistent (HCC) 12/01/2024 3:00 AM EDT Clinical Support [facility] Electrophysiology [address] [place] [phone] Kendall Malik MD Encounter for adjustment or management of cardiac device (Primary Dx); Chronic systolic congestive heart failure (HCC); Ischemic cardiomyopathy; PAF (paroxysmal atrial fibrillation) (HCC); AICD (automatic cardioverter/defibri llator) present from Last 3 Months Allergies No known active allergies Medications aspirin [...] disease 10/22/2019 07/07/2023 Sleep apnea 10/22/2019 07/07/2023 Social History Tobacco Use Types Packs/Day Years [...] your living situation today? I have a [facility] place to live 10/06/2024 Think about [...] Do you speak a language other than [place] at [facility]? No 10/06/2024 Do you want help with [...] Description 02/08/2025 1:45 PM EST Office Visit [facility] Cardiology [address] [place] [phone] Christina Almonte MD [address] [place] [phone] 04/05/2025 12:30 PM EST Office Visit [facility] Electrophysiology [address] [place] [phone] Kendall Malik MD [address] [facility] [place] [address] Medical Devices Implanted Type Area Sole Rounding Machine Operator Device Identifier Shelf Expiration Date Model / Serial / Lot Icd- 2 Implanted: by Kendall Malik MD (Quantity not on file) ICD Left: Chest [employer] [id number] / [id number] / Cement Bone Smplx Tobra 40gm 6197-9-001 - [id number] Implanted:Qt y: 2 on 10/06/2024 by Sandeep Skinner MD at [facility] IMPLANTS Left: Knee [employer] [id number] 12/05/2025 6197-9-0 01 / / [id number] Pwdr Cellerate Clgn 1gm Strl Lct-64-Zmdft p - [id number] Implanted:Qt y: 1 on 10/06/2024 by Sandeep Skinner MD at [facility] IMPLANTS Left: Knee [employer] 08/19/2026 WCI-01-S ACRXP / / [id number] Crtd [place] Hf Quad Is4 Df1 Ersc0d2 - [id number] Implanted:Qt y: 1 on 02/06/2022 at [facility] PACEMAKER/IC D BI VALVE DEVICE [employer]:CARD RHY:DISEASE MGT [id number] / / Kt Cr Full Itotal Id 2pc Itcr-Xe-2pc - [id number] Implanted:Qt y: 1 on 10/06/2024 by Sandeep Skinner MD at [facility] TOTAL JOINT [employer]STRUCT Left: Knee [id number] 09/04/2025 ITCR-XE- 2PC / [id number] / Ty Cr Tib Itotal Id Right [id number] - [id number] Implanted:Qt y: 1 on 10/06/2024 by Sandeep Skinner MD at [facility] [employer] Left: Knee [id number] 09/04/2025 [id number] / [id number] / Imp Cr Fem Itotal Id Tu Right [id number] - [id number] Implanted:Qt y: 1 on 10/06/2024 by Sandeep Skinner MD at [facility] [employer] Left: Knee [id number] 09/04/2025 [id number] / Imp Patella Itotal 35x7mm [id number] - [id number] Implanted:Qt y: 1 on 10/06/2024 by Sandeep Skinner MD at [facility] TOTAL [employer] Left: Knee [id number] 05/07/2025 [id number] Procedures Procedure Name Priority Date/Time Associated Diagnosis Comments HEMOGLOBIN A1C Routine 08/10/2024 11:40 AM EDT Preop examination from Last 3 Months or Most Recently Relevant to Health Maintenance Results * (ABNORMAL) Hemoglobin A1c (08/10/2024 11:40 AM EDT) Hemoglobin A1C 8.8(H) 4.2 - 6.3 % 08/10/2024 12:09 PM EDT [facility] Comment: Hemoglobin A1C levels are related to mean glucose during the preceding 2-3 months. Less than 7% demonstrates glycemic control in diabetic patients. Hemoglobin AlC % Suggested Diagnosis > or = 6.5 Diabetic 5.7 - 6.4 Prediabetic <5.7 Non-diabetic eAVG Glucose 205.86 mg/dL 08/10/2024 12:09 PM EDT [facility] Blood 08/10/2024 11:4 0 AM EDT 08/10/2024 11:40 AM EDT us Sandeep Skinner MD LAB BLOOD ORDERABLES Final Resul t [facility] [address] [phone] from Last 3 Months or Most Recently Relevant to Health Maintenance [place] [place] [address] [employer] ACCESS PPO MAP Advance Directives For more information, please contact: [phone] * Full Code (Latest Code Status on [...] if patient is in distress. Care Teams Plate Glass Installer Relationship Specialty Start Date End Date Teo Yoo MD [address] [place] [address] [address] [place] [address] PCP - General General Internal Medicine 02/06/22
--- OUTSIDE RECORDS SUMMARY | 2025-02-02 13:53 | XMS_ITS | Encounter Summary ---
Author Organization [employer] ([place], [place], [place], [place]) Address [address] [place] [address] Care Team Providers Care Varnish Filterer Name Role Phone Ky Moore MD Primary Care Provider [phone] Encounter Details Date Type Department Care Team (Late st Contact Info) Description 11/16/2019 Transcribed Document [facility] [place] [address] ProviderSanjiv MD [address] [place] [phone] Social History Tobacco Use Types Packs/Day Years Used Date Smoking Tobacco: Never Assessed Sex and Gender Information Value Date Recorded Sex Assigned at Not on file Legal Sex Male 1:10 PM CDT Gender Identity Not on file Sexual Orientation Not on file documented as of this encounter Miscellaneous Notes * Cerner Conversion Note - Sanjiv Patton MD - 11/16/2019 3:[address] [place] [address] DIEGO ADAMSON :1955 Visit Time:11/16/2019 Your [...] Up with SHANIKA MARTINEZ MD-CAR When Where: [address] [place], [place] [id number]- Follow Up with Follow up with primary [...] you are awake and alert. ??? Take znzy-hit-odvvzmp and prescription medicines only as told by [...] 01/12/2014 Document Revised: 03/06/2018 Document Reviewed: 07/13/2016 [employer] Patient Education ?? 2020 [employer]. Groin Site Care Refer to this sheet [...] Document Reviewed: 04/26/2011 ExitCare?? Patient Information ??2014 [employer]. 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 ? Change your dressing as told by [...] contrast dye from your body. ??? Take xtfv-sbi-jdakyqd and prescription medicines only as told by [...] 10/10/2005 Document Revised: 03/06/2018 Document Reviewed: 02/26/2017 [employer] Patient Education ?? 2020 [employer]. Angiogram An angiogram is a procedure used [...] including vitamins, herbs, eye drops, creams, and vpws-cdl-lqezraz medicines. ??? Any problems you or family [...] 01/01/2006 Document Revised: 03/06/2018 Document Reviewed: 04/30/2017 [employer] Patient Education ?? 2020 [employer] Emergency Awareness and Preventative Care STROKE [...] Assistance with quitting is available by contacting 2-206-CRQSNOW. This is a free resource providing counseling, support, and referral. Or you may contact your personal physician. [employer] Suicide Prevention Lifeline: The National Suicide Prevention [...] was given the opportunity to ask questions. Patient/Sorter Pricer Name: Patient/Sorter Pricer Signature: Relationship to Patient: Clinician/Hospital Sorter Pricer Signature: Date: documented in this encounter Plan of Treatment Upcoming Encounters Date Type Department Care Team (Late st Contact Info) Description 02/08/2025 1:45 PM EST Office Visit [facility] Cardiology [address] [place], [place] [phone] Christina Almonte MD [address] [place], [place] [phone] 04/05/2025 12:30 PM EST Office Visit [facility] Electrophysiology [address] [place], [place] [phone] Kendall Malik MD [address] [place] [address] [address] [place] [phone] documented as of this encounter Visit Diagnoses Not on filedocumented in this encounter Care Teams Varnish Filterer Relationship Specialty Start Date End Date Ky Moore MD [address] [place] [address] [address] [place] [phone] PCP - General General Internal Medicine 02/06/22 documented as of this encounter
--- NOTE | 2025-02-02 13:54 | XR_ITS ---
FINAL REPORT CLINICAL HISTORY: PAIN IN LOWER LEFT LEG - pain in medina COMPARISON: None FINDINGS: Two views of the left tibia/fibula were obtained. Total knee prosthesis is present. There is no acute fracture or dislocation. The joint spaces are intact. There is no soft tissue abnormality. IMPRESSION: No acute bony abnormality. Reviewed, Interpreted and Dictated by Ronny Peter MD Transcribed by Aretha Gutierrez Authenticated and [facility]
--- OUTSIDE RECORDS SUMMARY | 2025-02-02 13:54 | XMS_ITS | Data Portability ---
Author Organization [place] [facility] [place] [facility] ADMIN Address [address] [place] [id number] Care Team Providers Care Service Unit Operator Name Role Phone [place] MOORE Primary Care Provider Assessment Encounter Date Assessment Date Assessment LastModified by Organization Details LastModified Time 10/13/2024 10/13/2024 Please note this report was created using voice recognition/text compilation software documentation services during the encounter with the patient. [email or web address] Not available 10/14/2024 18:10:20 11/09/2024 11/09/2024 ASSESSMENT: - Persistent diarrhea, nausea, weight loss, weakness. - Possible medication side effects (Mounjaro, metformin). - Rule out infectious etiology (e.g., C. difficile, bacterial diarrhea). PLAN: The patient will be instructed to temporarily discontinue Mounjaro to assess its impact on symptoms, including nausea, appetite, and diarrhea. A stool sample will be collected for laboratory analysis to rule out infectious causes such as C. difficile or bacterial diarrhea. A prescription for Lomotil will be provided to manage diarrhea, with instructions to use it cautiously to avoid constipation. Additionally, a refill for Phenergan will be sent to address nausea. The patient will be advised to monitor blood sugar levels closely, given the risk of hypoglycemia due to reduced food intake and ongoing diabetes medications. If symptoms worsen, including lightheadedness, dizziness, or signs of severe dehydration, the patient will be advised to seek immediate evaluation at the emergency room for potential fluid administration and further assessment. Should symptoms persist despite these interventions, referral to a drink waiter will be considered for further evaluation. Please note this report was created using voice recognition/text compilation software documentation services during the encounter with the patient. [email or web address] Not available 11/11/2024 08:53:46 12/08/2024 12/08/2024 PERSONALIZED [facility] PLAN (COPY PROVIDED TO PATIENT) 1) Vaccines: (a) Pneumococcal Vaccine - Type: PCV20 Last Service: 02/23/24 Plan: (b) Influenza vaccine - Last Service: 02/23/24 Plan: (c) Hepatitis B vaccine - Last Service: Plan: (d) Shingrix Vaccine - Last Service: Plan: Refused: (e) COVID - Last Service: Plan: Refused: (f) COVID vaccine booster - Last Service: Plan: (g) Tetanus Vaccine - Last Service: Plan: 2) Colorectal Cancer Screening for aged 45 75 years: Last service: Finding: Plan: Colonoscopy every 10 years 3) Bone Mass Measurements: Last Service: Recommendation: Many older people benefit from taking calcium and vitamin D supplements. Talk to your doctor about supplements. 4) Glaucoma screening Last service: Plan: 5) Cardiovascular Disease Screening Tests (Lipid Panel): Last service: Plan: Cholesterol, serum, total: HDL: Triglycerides: LDL: 6) Lung Screening & Counseling w/low dose CT Last service: Recommendation: Never smoker. Plan: 7) Pre-diabetes screening: Recommendation: Last service: Finding: Plan: 8) Diabetes self-management training (diagnosed with diabetes) Last service: Recommendation: Plan: FEMALE ONLY 9) Breast cancer screening Last service: Recommendation: Plan: FEMALE ONLY 10) Screening Pap Tests Last service: Recommendation: Plan: FEMALE ONLY 11) Screening Pelvic Exam (include clinical breast exam Last service: Recommendation: Plan: 12) Medical Nutritional therapy Diet recommendations may include: -Lots of vegetables and fruits -Fewer simple carbohydrates, fats and cholesterol -A moderate amount of protein and dairy Avoid: Artificial sweeteners, Soda, & Processed food. 13) Exercise counseling You should do 30 minutes of aerobic exercise for at least 5 days per week. Regular exercise can help: -Lower heart disease risk -Delay the onset of diabetes -Improve blood pressure, functional status and performance -Reduce the risk of falls and osteoporosis -Enhance mental health and cognitive function 14) Abdominal Aortic Aneurysm screening: . MALE ONLY 15) Prostate Cancer Screening Last service: Recommendation: Plan: 16) Hepatitis C Screening Last service: Recommendation: Plan: 17) Advance Directive discussed with patient. Patient verbalizes understanding and questions answered Plan: This exam was performed under the supervision of: Further consultation: All recommendations have been discussed thoroughly with the patient. Next Medicare Annual Wellness Visit will be due in 1 year. Please note this report was created using voice recognition/text compilation software documentation services during the encounter with the patient. [email or web address] Not available 12/08/2024 10:27:00 Plan of Treatment Reminders Order Date Submit Date Provider Last Modified By Organization Details Last Modified Time Details Appointments OV EST 20 2025 09:00A Iwona Moore MD Not available Not available Not available Lab lipid panel, serum 2024 025 C[facility], [address], [address], [place], [address], 12/09/2024 06:38:14 PSA, serum or plasma 2024 025 CATHY [facility], [address], [address], [place], [address], 12/09/2024 06:38:15 HbA1c (hemoglob in A1c), blood 2024 025 CATHY [facility], [address], [address], [place], [address], 12/09/2024 06:38:15 TSH + free T4, serum 2024 025 CATHY [facility], [address], [address], [place], [address], 12/09/2024 06:38:13 CBC w/ auto diff 2024 025 CATHY [facility], [address], [address], [place], [address], 12/09/2024 06:38:13 CMP, serum or plasma 2024 025 CATHY [facility], [address], [address], [place], [address], 12/09/2024 06:38:14 gastroint estinal pathogens panel, PCR, stool 2024 025 [facility] (Registration ), [address], [place], [address], 11/11/2024 13:43:28 HbA1c (hemoglob in A1c), blood 2024 025 [facility], [address], [address], [place], [address], 11/09/2024 15:06:31 HbA1c (hemoglob in A1c), blood 2024 025 [facility], [address], [facility] [address], [place], [address], 09/15/2024 10:13:24 Referral None recorded. Procedures None recorded. Surgeries None recorded. Imaging None recorded. Medication Orders atorvasta tin 80 mg tablet 2024 025 [facility], [address] [place] [address], [id number], 12/08/2024 10:28:24 Mounjaro 5 mg/0.5 mL subcutane ous pen injector 2024 025 [facility], [address] [place] [address], [id number], 02/01/2025 10:13:59 metformin 850 mg tablet 2024 025 [facility], [address] [place] [address], [id number], 12/09/2024 10:13:02 Lomotil 2.5 mg-0.025 mg tablet 2024 025 [facility], [address] [place] [address], [id number], 12/08/2024 10:28:22 promethaz ine 25 mg tablet 2024 025 [facility], [address] [place] [address] [address], ROCAEL Turk, [id number], 12/08/2024 10:28:21 atorvasta tin 80 mg tablet 2024 025 [facility], [address] [place] [address] S, [place] Turk, [id number], 11/29/2024 15:55:31 promethaz ine 25 mg tablet 2024 025 [facility], [address] [place] [address] [place], ROCAEL Turk, [id number], 12/08/2024 09:55:30 metformin 1,000 mg tablet 2024 025 [facility], [address] [place] [address] [place], ROCAEL Turk, [id number], 12/08/2024 10:07:24 carvedilo l 12.5 mg tablet 2024 025 [facility], [address] [place] [address] [place], [id number], 01/25/2025 10:35:05 Mounjaro 2.5 mg/0.5 mL subcutane ous pen injector 2024 025 [facility], [address] [place] [address] [address] [place], [id number], 12/08/2024 10:07:28 Patient TargetsNo targets recorded. 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 69 yo male with recent onset of vision changes in left eye, recurrent falls Referring Physician: Ky Moore, Internal Medicine, Encounter Date: 02/01/2025 Results Created Date Observation Date Name Description Value Unit Range Abnormal Flag Note LastModifiedBy Organization Detail LastModifiedTime 09/16/1909/15/2024 HbA1c (hemo globi n A1c), blood HbA1c 7.2 Not Available [facility] [address], [place], [address], 09/15/2024 10:13:14 11/10/19 25 11/09/2024 HbA1c (hemo globi n A1c), blood HbA1c 6.0 Not Available [facility] [address], [place], [address], 11/09/2024 14:42:28 11/11/19 25 11/11/2024 GASTR OINTE MANISHA L PANEL ,STL PCR campylobacte r NOT DETECT ED not detect ed CAMPY LOBAC TER AND CRYPT OSPOR IDIUM RESUL TS WILL BE CONFI RMED BEFOR E FINAL RESUL TS REPOR OLMAN. Not Available [facility]) [address] , [place], [address], 11/11/2024 13:15:35 11/11/19 25 11/11/2024 GASTR OINTE MANISHA L PANEL ,STL PCR C difficile toxin A/B NOT DETECT ED not detect ed Not Available [facility] ([facility]) [address] , [place], [address], 11/11/2024 13:15:35 11/11/19 25 11/11/2024 GASTR OINTE MANISHA L PANEL ,STL PCR plesiomonas shigelloides NOT DETECT ED not detect ed Not Available [facility] ([facility]) [address], [place], [address], 11/11/2024 13:15:35 11/11/19 25 11/11/2024 GASTR OINTE MANISHA L PANEL ,STL PCR salmonella NOT DETECT ED not detect ed Not Available [facility] ([facility]) [address], [place], [address], 11/11/2024 13:15:35 11/11/19 25 11/11/2024 GASTR OINTE MANISHA L PANEL ,STL PCR vibrio NOT DETECT ED not detect ed Not Available [facility] ([facility]) [address], [place], [address], 11/11/2024 13:15:35 11/11/19 25 11/11/2024 GASTR OINTE MANISHA L PANEL ,STL PCR vibrio cholerae NOT DETECT ED not detect ed Not Available [facility] ([facility]) [address], [place], [address], 11/11/2024 13:15:35 11/11/19 25 11/11/2024 GASTR OINTE MANISHA L PANEL ,STL PCR yersinia enterocoliti ca NOT DETECT ED not detect ed Not Available [facility]) [address] [place], [address], 11/11/2024 13:15:35 11/11/19 25 11/11/2024 GASTR OINTE MANISHA L PANEL ,STL PCR enteroaggreg ative E coli NOT DETECT ED not detect ed Not Available [facility] ([facility]) [address], [place], [address], 11/11/2024 13:15:35 11/11/19 25 11/11/2024 GASTR OINTE MANISHA L PANEL ,STL PCR enteropathog enic E coli DETECT ED not detect ed delta Not Available [facility] ([facility]) [address], [place], [address], 11/11/2024 13:15:35 11/11/19 25 11/11/2024 GASTR OINTE MANISHA L PANEL ,STL PCR enterotoxige petar E coli lt/st NOT DETECT ED not detect ed Not Available [facility]) [address], [place], [address], 11/11/2024 13:15:35 11/11/19 25 11/11/2024 GASTR OINTE MANISHA L PANEL ,STL PCR shiga-toxin- producing E coli NOT DETECT ED not detect ed Not Available [facility]) [address], [place], [address], 11/11/2024 13:15:35 11/11/19 25 11/11/2024 GASTR OINTE MANISHA L PANEL ,STL PCR E coli O157 N/A not detect ed Not Available [facility]) [address], [place], [address], 11/11/2024 13:15:35 11/11/19 25 11/11/2024 GASTR OINTE MANISHA L PANEL ,STL PCR shigella/ent eroinvasive E coli NOT DETECT ED not detect ed Not Available [facility]) [address] [place], [address], 11/11/2024 13:15:35 11/11/19 25 11/11/2024 GASTR OINTE MANISHA L PANEL ,STL PCR cryptosporid ium NOT DETECT ED not detect ed Not Available [facility]) [address] [place], [address], 11/11/2024 13:15:35 11/11/19 25 11/11/2024 GASTR OINTE MANISHA L PANEL ,STL PCR cyclospora cayetanensis NOT DETECT ED not detect ed Not Available [facility]) [address], [place], [address], 11/11/2024 13:15:35 11/11/19 25 11/11/2024 GASTR OINTE MANISHA L PANEL ,STL PCR entamoeba histolytica NOT DETECT ED not detect ed Not Available [facility]) [address], [place], [address], 11/11/2024 13:15:35 11/11/19 25 11/11/2024 GASTR OINTE MANISHA L PANEL ,STL PCR giardia lamblia NOT DETECT ED not detect ed Not Available [facility]) [address], [place], [address], 11/11/2024 13:15:35 11/11/19 25 11/11/2024 GASTR OINTE MANISHA L PANEL ,STL PCR adenovirus F 40/41 NOT DETECT ED not detect ed Not Available [facility]) [address], [place], [address], 11/11/2024 13:15:35 11/11/19 25 11/11/2024 GASTR OINTE MANISHA L PANEL ,STL PCR astrovirus NOT DETECT ED not detect ed Not Available [facility]) [address] [place], [address], 11/11/2024 13:15:35 11/11/19 25 11/11/2024 GASTR OINTE MANISHA L PANEL ,STL PCR norovirus GI/gii NOT DETECT ED not detect ed Not Available [facility]) [address], [place], [address], 11/11/2024 13:15:35 11/11/19 25 11/11/2024 GASTR OINTE MANISHA L PANEL ,STL PCR rotavirus A NOT DETECT ED not detect ed Not Available [facility]) [address], [place], [address], 11/11/2024 13:15:35 11/11/19 25 11/11/2024 GASTR OINTE MANISHA L PANEL ,STL PCR sapovirus NOT DETECT ED not detect ed Test Metho d Limit ation s: This assay does not disti nguis h betwe en viabl e and non-v iable organ isms/ This test does not deter mine antib iotic susce ptibi litie s. The use of forme d or conta minat ed stool sampl es are not recom lauro d. Rhett eous resul ts may occur from impro per speci men colle ction , handl ing or stora ge, prese nce of inhib itors , prese nce of seque nce varia nts in the gene targe ts of the assay , techn ical error s or sampl e mix-u p. Posit zacarias C.dif ficil e resul ts may not be clini ruth relev ant in child john under the age of two. Consu ltati on with an Infec tious Disea se Pedia trici an is recom lauro d. Test Metho dolog y: BioFi re FilmA rray GI Panel - Melti ng curve keli sis, PCR, multi plex, rever se trans cript ase Not Available [facility]) [address], [place], [address], 11/11/2024 13:15:35 12/09/19 25 12/09/2024 TSH+F REE T4 TSH 2.420 uIU/m L 0.450- 4.500 normal Not Available [facility] ([facility]) [address], [place], [address], 12/09/2024 06:38:13 12/09/19 25 12/09/2024 TSH+F REE T4 T4,free(dire ct) 0.97 NG/dL 0.82-1 .77 normal Not Available [facility] ([facility]) [address], [place], [address], 12/09/2024 06:38:13 12/09/1912/09/2024 CBC WITH DIFFE RENTI AL/PL ATELE T WBC 6.2 x10e3 /uL 3.4-10 .8 normal Not Available [facility] ([facility]) [address], [place], [address], 12/09/2024 06:38:13 12/09/1912/09/2024 CBC WITH DIFFE RENTI AL/PL ATELE T RBC 4.72 x10e6 /uL 4.14-5 .80 normal Not Available [facility] ([facility]) [address], [place], [address], 12/09/2024 06:38:13 12/09/1912/09/2024 CBC WITH DIFFE RENTI AL/PL ATELE T hemoglobin 14.3 g/dL 13.0-1 7.7 normal Not Available [facility] ([facility]) [address] [place], [address], 12/09/2024 06:38:13 12/09/1912/09/2024 CBC WITH DIFFE RENTI AL/PL ATELE T hematocrit 45.4 % 37.5-5 1.0 normal Not Available [facility] ([facility]) [address] [place], [address], 12/09/2024 06:38:13 12/09/1912/09/2024 CBC WITH DIFFE RENTI AL/PL ATELE T MCV 96 fL 79-97 normal Not Available [facility] ([facility]) [address] [place], [address], 12/09/2024 06:38:13 12/09/19 25 12/09/2024 CBC WITH DIFFE RENTI AL/PL ATELE T MCH 30.3 pg 26.6-3 3.0 normal Not Available [facility] ([facility]) [address], [place], [address], 12/09/2024 06:38:13 12/09/19 25 12/09/2024 CBC WITH DIFFE RENTI AL/PL ATELE T MCHC 31.5 g/dL 31.5-3 5.7 normal Not Available [facility] ([facility]) [address], [place], [address], 12/09/2024 06:38:13 12/09/19 25 12/09/2024 CBC WITH DIFFE RENTI AL/PL ATELE T RDW 12.7 % 11.6-1 5.4 Not Available [facility] ([facility]) [address] [place], [address], 12/09/2024 06:38:13 12/09/1912/09/2024 CBC WITH DIFFE RENTI AL/PL ATELE T platelets 215 x10e3 /uL 150-45 0 normal Not Available [facility] ([facility]) [address] [place], [address], 12/09/2024 06:38:13 12/09/1912/09/2024 CBC WITH DIFFE RENTI AL/PL ATELE T neutrophils 57 % not estab. normal Not Available [facility] ([facility]) [address] [place], [address], 12/09/2024 06:38:13 12/09/1912/09/2024 CBC WITH DIFFE RENTI AL/PL ATELE T lymphs 31 % not estab. normal Not Available [facility] ([facility]) [address] [place], [address], 12/09/2024 06:38:13 12/09/19 25 12/09/2024 CBC WITH DIFFE RENTI AL/PL ATELE T monocytes 8 % not estab. normal Not Available [facility] ([facility]) [address] [place], [address], 12/09/2024 06:38:13 12/09/1912/09/2024 CBC WITH DIFFE RENTI AL/PL ATELE T eos 3 % not estab. normal Not Available [facility] ([facility]) [address] [place], [address], 12/09/2024 06:38:13 12/09/1912/09/2024 CBC WITH DIFFE RENTI AL/PL ATELE T basos 1 % not estab. normal Not Available [facility] ([facility]) [address] [place], [address], 12/09/2024 06:38:13 12/09/1912/09/2024 CBC WITH DIFFE RENTI AL/PL ATELE T immature cells CLIENT DELIVERY SPECIALIST Not Available [facility] [address] [place], [address], 12/09/2024 06:38:13 12/09/1912/09/2024 CBC WITH DIFFE RENTI AL/PL ATELE T neutrophils (absolute) 3.5 x10e3 /uL 1.4-7. 0 normal Not Available [facility] ([facility]) [address] [place], [address], 12/09/2024 06:38:13 12/09/1912/09/2024 CBC WITH DIFFE RENTI AL/PL ATELE T lymphs (absolute) 1.9 x10e3 /uL 0.7-3. 1 normal Not Available [facility] ([facility]) [address] [place], [address], 12/09/2024 06:38:13 12/09/1912/09/2024 CBC WITH DIFFE RENTI AL/PL ATELE T monocytes(ab solute) 0.5 x10e3 /uL 0.1-0. 9 normal Not Available [facility]) [address] [place], [address], 12/09/2024 06:38:13 12/09/1912/09/2024 CBC WITH DIFFE RENTI AL/PL ATELE T eos (absolute) 0.2 x10e3 /uL 0.0-0. 4 normal Not Available [facility] ([facility]) [address], [place], [address], 12/09/2024 06:38:13 12/09/19 25 12/09/2024 CBC WITH DIFFE RENTI AL/PL ATELE T baso (absolute) 0.0 x10e3 /uL 0.0-0. 2 normal Not Available [facility] ([facility]) [address] [facility], [place], [address], 12/09/2024 06:38:13 12/09/1912/09/2024 CBC WITH DIFFE RENTI AL/PL ATELE T immature granulocytes 0 % not estab. Not Available [facility] ([facility]) [address] [facility], [place], [address], 12/09/2024 06:38:13 12/09/1912/09/2024 CBC WITH DIFFE RENTI AL/PL ATELE T immature grans (abs) 0.0 x10e3 /uL 0.0-0. 1 Not Available [facility] ([facility]) [address] [place], [address], 12/09/2024 06:38:13 12/09/1912/09/2024 CBC WITH DIFFE RENTI AL/PL ATELE T NRBC CLIENT DELIVERY SPECIALIST Not Available [facility] ([facility]) [address] [place], [address], 12/09/2024 06:38:13 12/09/19 25 12/09/2024 CBC WITH DIFFE RENTI AL/PL ATELE T hematology comments: CLIENT DELIVERY SPECIALIST Not Available [facility] ([facility]) [address] [place], [address], 12/09/2024 06:38:13 12/09/19 25 12/09/2024 COMP. METAB OLIC PANEL (14) glucose 115 mg/dL 70-99 above high normal Not Available [facility] ([facility]) [address] [place], [address], 12/09/2024 06:38:14 12/09/19 25 12/09/2024 COMP. METAB OLIC PANEL (14) BUN 12 mg/dL 8-27 normal Not Available [facility] ([facility]) [address] [facility] [place], [address], 12/09/2024 06:38:14 12/09/19 25 12/09/2024 COMP. METAB OLIC PANEL (14) creatinine 0.84 mg/dL 0.76-1 .27 normal Not Available [facility] ([facility]) [address] [place], [address], 12/09/2024 06:38:14 12/09/19 25 12/09/2024 COMP. METAB OLIC PANEL (14) BUN/creatini ne ratio 14 10-24 normal Not Available [facility]) [address] [facility] [place], [address], 12/09/2024 06:38:14 12/09/19 25 12/09/2024 COMP. METAB OLIC PANEL (14) sodium 142 mmol/ L 134-14 4 normal Not Available [facility] ([facility]) [address] [place], [address], 12/09/2024 06:38:14 12/09/19 25 12/09/2024 COMP. METAB OLIC PANEL (14) potassium 5.0 mmol/ L 3.5-5. 2 normal Not Available [facility] ([facility]) [address] [place], [address], 12/09/2024 06:38:14 12/09/19 25 12/09/2024 COMP. METAB OLIC PANEL (14) chloride 105 mmol/ L 96-106 normal Not Available [facility] ([facility]) [address] [facility], [place], [address], 12/09/2024 06:38:14 12/09/19 25 12/09/2024 COMP. METAB OLIC PANEL (14) carbon dioxide, total 25 mmol/ L 20-29 normal Not Available [facility] ([facility]) [address] [facility], [place], [address], 12/09/2024 06:38:14 12/09/1912/09/2024 COMP. METAB OLIC PANEL (14) calcium 9.5 mg/dL 8.6-10 .2 normal Not Available [facility] ([facility]) [address] [facility], [place], [address], 12/09/2024 06:38:14 12/09/19 25 12/09/2024 COMP. METAB OLIC PANEL (14) protein, total 6.6 g/dL 6.0-8. 5 normal Not Available [facility] ([facility]) [address] [facility], [place], [address], 12/09/2024 06:38:14 12/09/1912/09/2024 COMP. METAB OLIC PANEL (14) albumin 4.2 g/dL 3.9-4. 9 normal Not Available [facility] ([facility]) [address] [facility], [place], [address], 12/09/2024 06:38:14 12/09/1912/09/2024 COMP. METAB OLIC PANEL (14) globulin, total 2.4 g/dL 1.5-4. 5 Not Available [facility] ([facility]) [address] [facility], [place], [address], 12/09/2024 06:38:14 12/09/19 25 12/09/2024 COMP. METAB OLIC PANEL (14) bilirubin, total 0.5 mg/dL 0.0-1. 2 normal Not Available [facility] ([facility]) [address] [place], [address], 12/09/2024 06:38:14 12/09/19 25 12/09/2024 COMP. METAB OLIC PANEL (14) alkaline phosphatase 72 IU/L 44-121 normal Eff ectiv e Septe mber 2024 Alkal ine Phosp hatas e refer ence inter joseph will be cook ing to: Age Male Femal e 0 - 5 days 47 - 127 47 - 127 6 - 10 days 29 - 242 29 - 242 11 - 20 days 109 - 357 109 - 357 21 - 30 days 94 - 494 94 - 494 1 - 2 month s 149 - 539 149 - 539 3 - 6 month s 131 - 452 131 - 452 7 - 11 month s 117 - 401 117 - 401 12 month s - 6 years 158 - 369 158 - 369 7 - 12 years 150 - 409 150 - 409 13 years 156 - 435 78 - 227 14 years 114 - 375 64 - 161 15 years 88 - 279 56 - 134 16 years 74 - 207 51 - 121 17 years 63 - 161 47 - 113 18 - 20 years 51 - 125 42 - 106 21 - 50 years 47 - 123 41 - 116 51 - 80 years 49 - 135 51 - 125 >80 years 48 - 129 48 - 129 Not Available [facility] ([facility]) [address] [place], [address], 12/09/2024 06:38:14 12/09/19 25 12/09/2024 COMP. METAB OLIC PANEL (14) AST (SGOT) 18 IU/L 0-40 normal Not Available [facility] ([facility]) [address] [place], [address], 12/09/2024 06:38:14 12/09/19 25 12/09/2024 COMP. METAB OLIC PANEL (14) ALT (SGPT) 16 IU/L 0-44 normal Not Available [facility] ([facility]) [address] [place], [address], 12/09/2024 06:38:14 12/09/19 25 12/09/2024 LIPID PANEL cholesterol, total 104 mg/dL 100-19 9 normal Not Available [facility] ([facility]) [address] [facility] [place], [address], 12/09/2024 06:38:14 12/09/19 25 12/09/2024 LIPID PANEL triglyceride s 81 mg/dL 0-149 normal Not Available [facility]) [address] [place], [address], 12/09/2024 06:38:14 12/09/19 25 12/09/2024 LIPID PANEL HDL cholesterol 47 mg/dL >39 normal Not Available [facility] [address] [place], [address], 12/09/2024 06:38:14 12/09/19 25 12/09/2024 LIPID PANEL VLDL cholesterol olivia 16 mg/dL 5-40 Not Available [facility] ([facility]) [address] [place], [address], 12/09/2024 06:38:14 12/09/19 25 12/09/2024 LIPID PANEL LDL chol calc ([facility]) 41 mg/dL 0-99 Not Available [facility]) [address] [place], [address], 12/09/2024 06:38:14 12/09/1912/09/2024 LIPID PANEL LDL calc comment: CLIENT DELIVERY SPECIALIST Not Available [facility] ([facility]) [address] [place], [address], 12/09/2024 06:38:14 12/09/19 25 12/08/2024 PSA TOTAL (REFL EX TO FREE) reflex criteria COMMEN T The perce nt free PSA is perfo rmed on a refle x basis only when the total PSA is betwe en 4.0 and 10.0 ng/mL . Not Available [facility] ([facility]) [address] [facility], [place], [address], 12/09/2024 06:38:15 12/09/1912/09/2024 PSA TOTAL (REFL EX TO FREE) prostate specific Ag 1.3 NG/mL 0.0-4. 0 normal [place] ECLIA metho dolog y. Accor ding to the Ameri can Urolo gical Assoc iatio n, Serum PSA shoul d decre ase and remai n at undet ectab le level s after radic al prost atect char. The AUA defin es bioch emica l recur rence as an initi al PSA value 0.2 ng/mL or great er follo wed by a subse quent confi rmato ry PSA value 0.2 ng/mL or great er. Value s obtai atul with diffe rent assay metho ds or kits canno t be used inter cook elton . Resul ts canno t be inter prete d as absol ekuk evide nce of the prese nce or absen ce of [facility]. Not Available [facility] ([facility]) [address] [facility], [place], [address], 12/09/2024 06:38:15 12/09/1912/09/2024 HEMOG LOBIN A1C hemoglobin A1C 6.2 % 4.8-5. 6 above high normal Predi abete s: 5.7 - 6.4 Diabe norberto: >6.4 Glyce juliet contr ol for adult s with diabe norberto: <7.0 Not Available [facility] ([facility]) [address] [facility], [place], [address], 12/09/2024 06:38:15 10/12/1910/06/2024 elect manasa martini am No observ ation record ed. [email or web address] [place] [address] East Scheduling [address], [place], [address], 10/11/2024 15:59:37 Result Notes None recorded. Problems Name Problem SNOMED Code Status Onset Date Resolution Date Notes Provider Name and Address Organization Details Recorded Time Blurring of visual image 147733121 Active [place] Tyler nestor, [place] - [facility] - [place] & [place] 5 15:13:59 Type 2 diabetes mellitus 60093784 Active 2022 Ky Moore MD [address], [place], [address] , [place] [facility] [place] & [place] 3 17:51:11 Hyperlipidemi a 48547167 Active 2022 Ky Moore MD [address], [place], [address] , [place] [facility] [place] 3 17:51:13 Essential hypertension 39935097 Active 2022 Ky Moore MD [address], [place], [address] , [place] [facility] & [place] 3 17:51:27 Congestive heart failure 91421392 Active 2022 Ky Moore MD [address], [place], [address] , [place] [facility] [place] 3 16:16:58 Insomnia 870031947 Active 2023 Ky Moore MD [address], [place], [address] , [place] [facility] [place] & [place] 4 16:35:37 Paroxysmal atrial fibrillation 962126652 Active 2023 Ky Moore MD [address], [place], [address] , [place] [facility] [place] & [place] 4 15:47:25 Problem Notes None recorded. Procedures Surgical History Date Name Laterality Status Provider Name and Address Organization Details Recorded Time 5 total replacement of left knee joint completed Meredith Cota [place] [facility] & [place] 11/03/2024 11:25:16 5 CABG completed Morenita CHAN [facility] & [place] 07/12/2023 12:19:45 cardiac pacemaker procedure completed Morenita CHAN [facility] & [place] 07/12/2023 12:20:35 Imaging Results None recorded. Procedure Notes None recorded. 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 Serial Number Lot Number Status Provider Name and Address Organization Details Recorded Time Cardiac pacemaker FDA Y ROCAEL Muniz [facility] & [place] 05/20/2023 10:15:41 Allergies Allergen ID Allergen Name Allergen Category Reaction Reaction Severity Criticality Documentation Date Start Date Code Code System Note Provider Name and Address Organization Details Recorded Time 859807 No known allergy (situatio n) Not available Not available Not available Not available 02/01/2025 92889 6003 SNOMED [place] baez ROCAEL CHAN [facility] & [place] 15:13:58 Medications Name Sig Start Date Stop Date Status Note LastModified by Organization Details LastModified Time amoxicillin 500 mg capsule 06/19 completed Not Available Not Available Not Available atorvastati n 80 mg tablet 1 tablet by oral route. active Not Available Not Available No t Available nystatin 100,000 unit/mL oral suspension 07/29 completed Not Available Not Available Not Available prednisone 10 mg tablet 06/03 completed Not Available Not Available Not Available atorvastati n 20 mg tablet 80 mg by oral route. 01/26 completed Not Available Not Available Not Available carvedilol 12.5 mg tablet 1 tablet by oral route. active Not Available Not Available No t Available venlafaxine 75 mg tablet 06/19 completed Not Available Not Available Not Available ipratropium 0.5 mg-albutero l 3 mg (2.5 mg base)/3 mL nebulizatio n soln 3 mL by inhalatio n route. 01/26 completed Not Available Not Available Not Available trazodone 50 mg tablet Take 1 tablet every day by oral route at bedtime for 30 days. 07/29 completed Not Available Not Available Not Available hydrocodone 5 mg-acetamin ophen 325 mg tablet TAKE 1 TABLET BY MOUTH EVERY 8 HOURS NEEDED 10/13 completed Not Available Not Available Not Available Children's Aspirin 81 mg chewable tablet 81 mg by oral route. 01/26 completed Not Available Not Available Not Available Tikosyn 250 mcg capsule 1 capsule by oral route. active Not Available Not Available No t Available metformin 850 mg tablet 1 tablet by oral route. active Not Available Not Available No t Available diphenoxyla te-atropine 2.5 mg-0.025 mg tablet TAKE 2 TABLETS BY MOUTH EVERY 6 HOURS NEEDED FOR DIARRHEA 12/08 completed Not Available Not Available Not Available tramadol 50 mg tablet TAKE 1 TABLET BY MOUTH 3 TIMES A DAY active Not Available Not Available No t Available acetaminoph en 500 mg tablet 1000 mg by oral route. 01/26 completed Not Available Not Available Not Available meloxicam 7.5 mg tablet 06/19 completed Not Available Not Available Not Available cephalexin 500 mg capsule 06/19 completed Not Available Not Available Not Available pantoprazol e 40 mg tablet,stephanie yed release 08/13 completed Not Available Not Available Not Available metformin 1,000 mg tablet TAKE ONE TABLET BY MOUTH 2 TIMES A DAY 12/08 completed Not Available Not Available Not Available promethazin e 25 mg tablet TAKE 1 TABLET BY MOUTH EVERY 8 HOURS NEEDED FOR NAUSEA 12/08 completed Not Available Not Available Not Available losartan 25 mg tablet 1 tablet by oral route. active Not Available Not Available No t Available furosemide 20 mg tablet 1 tablet by oral route. active Not Available Not Available No t Available levofloxaci n 500 mg tablet Take 1 tablet every 24 hours by oral route for 5 days. 11/23 completed Not Available Not Available Not Available dextrose 50 % in water (D50W) intravenous syringe 25 mL by intraven. route. 01/26 completed Not Available Not Available Not Available Tikosyn 08/13 completed Not Available Not Available Not Available ondansetron HCl (PF) 4 mg/2 mL injection solution 4 mg by injection route. 01/26 completed Not Available Not Available Not Available BD PosiFlush Normal Saline 0.9 % injection syringe 10 mL by injection route. 01/26 completed Not Available Not Available Not Available Humalog KwikPen (U-100) Insulin 100 unit/mL subcutaneou s 1 unt by sub-q route. 01/26 completed Not Available Not Available Not Available melatonin 5 mg tablet 5 mg by oral route. 01/26 completed Not Available Not Available Not Available Xarelto 10 mg tablet 20 mg by oral route. 01/26 completed Not Available Not Available Not Available Xarelto 20 mg tablet 1 tablet by oral route. active Not Available Not Available No t Available Eliquis 5 mg tablet Take 1 tablet twice a day by oral route for 30 days. 08/13 completed Not Available Not Available Not Available Farxiga 10 mg tablet 1 tablet by oral route. active Not Available Not Available No t Available Entresto 24 mg-26 mg tablet Take 1 tablet twice a day by oral route for 30 days. 10/13 completed Not Available Not Available Not Available Vazalore 81 mg capsule 1 capsule by oral route. active Not Available Not Available No t Available Mounjaro 5 mg/0.5 mL subcutaneou s pen injector 5 mg by sub-q route. active Not Available Not Available No t Available Mounjaro 2.5 mg/0.5 mL subcutaneou s pen injector inject 1 prefilled syringe SUBCUTANE OUSLY ONCE WEEKLY 12/08 completed Not Available Not Available Not Available Vitals Date Recorded Body height Body mass index (BMI) Body weight Heart rate Systolic And Diastolic Provider Name and Address Organization Details Last Updated DateTime 09/15/2024 175.26 cm 35 kg/m2 210001.0 9 g 76 /min 112/78 mm[Hg] Kimberly Yeh [facility] & [place] 09:54:48 Date Recorded Body height Body mass index (BMI) Body weight Body temperature Heart rate Systolic And Diastolic Provider Name and Address Organization Details Last Updated DateTime 175.26 cm 33.7 kg/m2 203678. 06 g 97.4 [degF] 91 /min 154/78 mm[Hg] Kimberly Alexander LESLIE [facility] & [place] 5 11:22:15 Date Recorded Body height Body mass index (BMI) Body weight Heart rate Body temperature Systolic And Diastolic Provider Name and Address Organization Details Last Updated DateTime 5 175.26 cm 32.3 kg/m2 57451.9 4 g 76 /min 97.6 [degF] 130/84 mm[Hg] Kimberly COTE [facility] & [place] 5 14:06:05 Date Recorded Body height Body mass index (BMI) Body weight Heart rate Systolic And Diastolic Provider Name and Address Organization Details Last Updated DateTime 12/08/2024 175.26 cm 32.9 kg/m2 349228.3 1 g 73 /min 143/85 mm[Hg] Kimberly COTE [facility] & [place] 5 09:36:47 Date Recorded Body height Body mass index (BMI) Body weight Body temperature Heart rate Systolic And Diastolic Provider Name and Address Organization Details Last Updated DateTime 5 175.26 cm 33 kg/m2 605623. 2 g 97.7 [degF] 75 /min 147/90 mm[Hg] [place] COTE [facility] & [place] 5 15:27:36 Social History Question Answer Notes LastModified by Q Designizat ion Details LastModified Time Tobacco Smoking Status Never Smoker [email or web address] [place] 11/03/2024 11:21:20 Do You Have An Advance Directive? No [email or web address] Information not available 11/03/2024 Are You Blind Or Do You Have Difficulty Seeing? No [email or web address] Information not available 11/03/2024 What Was The Date Of Your Most Recent Tobacco Screening? 09/13/2024 [email or web address] Information not available 11/03/2024 Are You Passively Exposed To Smoke? No [email or web address] Information not available 11/03/2024 Sex: Unknown Functional Status Question Answer Note LastModified by Organizat ion Details LastModified Time Do you use any illicit or recreational drugs? No [email or web address] Information not available 11/03/2024 What is your level of alcohol consumption? None Information not available 11/03/2024 What is your exercise level? Occasional [email or web address] Information not available 11/03/2024 Mental Status Question Answer Note LastModified by Organization D etails LastModified Time Do you feel stressed (tense, restless, nervous, or anxious, or unable to sleep at night)? [id number] [email or web address] Information not available 11/03/2024 Family History Relationship Description Onset Age of this Age Resolved Age Notes LastModified by Organization Details LastModified Time Father Heart disease [email or web address] Not available 2023 12:17:55 Mother Diabetes mellitus [email or web address] Not available 2024 15:02:52 Medical History Condition Response Coronary Artery Disease Y Depression Y Deep Vein Thrombosis Y Anxiety Disorder Y Stroke Y High Cholesterol Y Heart Attack ([place]) Y Diabetes Y Congestive Heart Failure (CHF) Y Reflux/GERD Y Heart Disease Y Hypertension Y Immunizations Vaccine Type Date Status Note Provider Nam e and Address Organization Details Recorded Time Influenza, adjuvanted, quadrivalent, PF 4 completed Ky Moore MD [address], [place], [address], [place] [facility] [place] & [place] 05/01/2023 16:43:56 Influenza, adjuvanted, trivalent, PF 4 completed Ky Moore MD [address] [facility], [place], [address], [place] [facility] [place] 02/23/2024 21:06:28 Pneumococcal conjugate PCV20, polysaccharide OSN273 conjugate, adjuvant, PF 4 completed Ky Moore MD [address] [facility], [place], [address], [place] [facility] [place] 02/23/2024 21:06:28 Influenza, adjuvanted, trivalent, PF 5 completed Kimberly baez, [place] & [place] 12/08/2024 10:36:06 Past Encounters Encounter ID Performer Location Encounter Start Date Encounter Closed Date Diagnosis/Indication Diagnosis SNOMED-CT Code Diagnosis ICD10 Code Diagnosis IMO Codes Diagnosis Note [id number] MD Charisse Proctor and Madysonjanice ramirez [address] [place] [address] 06/19/2022 15:39:51 06/19/2022 16:16:18 Mixed hyperlipidemia 439834274 E78.2 Essential hypertension 45527692 I10 Type 2 antonia betes mellitus 04040432 E11.9 Congestive heart failure 92492930 I50.9 Pain of le ft knee joint 6130139382 77094 M25.562 [id number] MD Charisse Proctor and Teo ramirez [address] [place] do Ramirez ROC[place] [address] 06/20/2022 08:40:21 06/20/2022 09:10:07 [id number] MD Charisse Proctor and Teo ramirez [address] [place] do [place] [address] 04/30/2023 15:09:57 04/30/2023 16:41:52 Active immunization 29383639 Z23 Strain of right pectoral muscle 3523186492 0701948 S29.011A Patient states symptoms are already improving today. Recommend supportive care at this time. Patient to call if symptoms worsen. Insomnia 954780545 G47.0 0 [id number] MD Charisse Proctor and Teo ramirez [address] [place] do Ramirez [place] [address] 06/03/2023 14:18:52 06/03/2023 15:44:03 Insomnia 081528121 G47.00 Stopping the Trazodone at this time as it may worsen the QR interval with the Tikosyn. Also, his sleeping seems to be improving on its own. Paroxysmal atrial fibrillation 706731530 I48.0 No atrial fibrillati on noted on today's EKG in office today. Continue Tikoysn as per Cardiology . Has upcoming ablation scheduled for July 06. [id number] MD Charisse Proctor and Teo ramirez [place] [address] [place] do FITZGERALDJanice Richard [place] [address] 07/30/2023 15:09:08 07/30/2023 16:10:55 Type 2 diabetes mellitus 93264317 E11.9 Continue current medication s at this time. Adult heal th examination 576889613 Z00.00 Will be coming back for NV for fasting labs. will be trying to find out when his last colonoscop y was done. She also plans to talk with his cardiologi st about this since he is currently on blood thinners s/p ablation. Essential hypertension 41398316 I10 Continue current medication s at this time. Paroxysmal atrial fibrillation 439952713 I48.0 Continue Tikoysn as per Cardiology . Hyperlipidemia 41043423 E78.5 Screening for malignant neoplasm of prostate 545683610 Z12.5 [id number] MD Charisse [place] [address] 08/07/2023 09:39:56 08/07/2023 11:39:14 Adult health examination 529084445 Z00.00 Will be coming back for NV for fasting labs. will be trying to find out when his last colonoscop y was done. She also plans to talk with his cardiologi st about this since he is currently on blood thinners s/p ablation. [id number] MD Charisse [place] [address] 02/23/2024 12:52:05 02/23/2024 14:30:34 Type 2 diabetes mellitus 75285820 E11.9 HgbA1c has increased from 7.7 to 8.3 today. Patient will try very hard to work on his diabetic diet and will plan to see back and recheck his HgbA1c in 3 months. May need to consider adding new medication at that time if no improvemen t. Active immunization 3387 9002 Z23 [id number] MD Charisse [place] [address] 12/08/2024 09:25:32 12/08/2024 10:26:34 Adult health examination 650159724 Z00.00 Patient is due for screening colonoscop y with Dr. Choi. plans to talk with his cardiologi first at his appt in January since he is currently on blood thinners s/p ablation. will call for colonoscop y order if he gets cardiology clearance for this. Type 2 antonia betes mellitus 69744873 E11.9 Increasing Mounjaro to 5mg and decreasing Metformin to 850mg dosing.Pat ient unable to give urine sample in clinic today for urine albumin. Mixed hyperlipidemia 267 618300 E78.2 Active immunization 3387 9002 Z23 4902022 Screening for malignant neoplasm of prostate 585702387 Z12.5 126981 [id number] MD Charisse Proctor and Teo ramirez [address] [place] [address] 08/13/2024 08:28:05 08/13/2024 09:10:13 Type 2 diabetes mellitus 81538694 E11.9 Recommend starting patient on low dose of Mounjaro at this time and to continue his other diabetes medication s. He is actively working on diet changes as well. Recommend checking blood sugars at home. Will see back in one month for close follow-up. Will plan to recheck HgbA1c at that time per patient's request. Pain of le ft knee joint 3011693165 64499 M25.562 176388 The patient was prescribed a low dose of hydrocodon e ([place]) for pain relief and advised to start a stool softener to prevent constipati on. [id number] MD Charisse Proctor and Teo ramirez [address] [place] [address] 09/15/2024 09:44:34 09/15/2024 10:15:23 Type 2 diabetes mellitus 27536004 E11.9 Hemoglobin A1c has dropped considerab ly down to 7.2 after just one month of Mounjaro and diet changes. Recommend continuing low dose of Mounjaro at this time and to continue his other diabetes medication s. He is continuing to work hard on his diet as well. Pain of le ft knee joint 7664008117 92445 M25.562 144313 Continuing [place] as needed for pain control. Will be taking HgbA1c results to orthopedic s to try to get his surgery reschedule d. [id number] MD Charisse Proctor and Teo n [address] [place] [address] 10/13/2024 10:54:47 10/13/2024 12:04:19 Nausea 466662442 R11.0 54656 Suspect his current GI symptoms are related to side effects from several of his medication s with the addition of the narcotic pain medication after his knee surgery. Push p.o. fluid intake. Boomer diet until symptoms resolve. Patient to call if symptoms worsen. Type 2 antonia betes mellitus 16847579 E11.9 Mixed hyperlipidemia 267 587162 E78.2 Essential hypertension 35318996 I10 Continue current medication s at this time. [id number] MD Charisse Proctor and Madysonjanice n [address] Zhao [place] [address] 11/09/2024 13:31:10 11/09/2024 15:06:15 Diarrhea 06961031 R19.7 25067289 Nausea 691049207 R11.0 77261 Type 2 antonia betes mellitus 12113919 E11.9 Holding the Mounjaro at this time due to possible side effects. [id number] MD Charisse Proctor and Yobanijosey n [address] [address] 02/01/2025 15:02:18 02/01/2025 16:54:09 Subjective visual disturbance 74771090 H53.10 R29.6 000110 Pain of le ft lower leg 2831504978 37431 M79.547 7188479 Health Concerns Section Related Observation LastModified by Organization Detai ls LastModified Time None Recorded Concern Status LastModified by Organization Details LastModified Time None Recorded Advance Directives Directive N: Payers Insurance Date Sequence Insurance Name Policy Number Policy Jack Covered Member ID Jack Member ID Guarantor Name 02/23/2024 2 [employer] [facility] (MEDICAID HMO) Diego Adamson [id number] Diego Adamson 01/28/2025 1 [place]MED[place]PLACEMENT REGIONAL PPO[place] [id number] Diego Adamson [id number] Diego Adamson 11/07/2020 1 [place] [id number] Shelby Adamson [id number] Digeo Adamson 02/23/2024 2 [place] Adamson [id number] Diego Adamson 02/23/2024 1 [place] Adamson [id number] Diego Adamson Notes Date Note Type Note Provider Name and Address Organization Details Recorded Time 09/15/2024 text/html Diego Adamson is a 68-year-old male who presents for a close follow-up visit after being started on Mounjaro about a month ago. He has been on Mounjaro at a low dose of 2.5 mg and reports no side effects such as abdominal pain, nausea, or constipation. He has made significant dietary changes, including reducing sugar intake and limiting bread consumption, which has contributed to an 11-pound weight loss over the past four weeks. His blood pressure today is 112/78, and his fasting blood sugars have averaged 125, with recent readings trending lower. Regarding his knee surgery, it has not been scheduled yet as his A1C needs to be 7.5 or below. He is requesting for the HgbA1c to be checked again today. He has been using pain medication occasionally for severe pain but prefers to avoid frequent use. Ky Moore MD [address] [facility], [place], [address], [facility] - [place] - [place] & [place] 09/16/2024 14:20:04 10/13/2024 text/html Diego Adamson is a 68-year-old male who presents for a hospital follow-up. He underwent left knee surgery approximately one week ago and was discharged the following day. He has been performing home physical therapy for two weeks, which is reportedly going well. However, he has experienced nausea, diarrhea described as watery, and loss of appetite starting two days ago. Prior to this, he was constipated and had been using stool softeners. He is currently alternating between oxycodone and tramadol for pain control, which may be contributing to his gastrointestinal symptoms. During his hospital stay, he experienced episodes of atrial fibrillation and ventricular tachycardia, requiring admission to the ICU. These episodes resolved by the following morning, and his chain hooker attributed them to stress from the surgery. His blood sugars have been fluctuating, with recent readings ranging from 98 to 159, which is slightly elevated compared to his usual levels. He continues to take Farxiga, metformin, and Mounjaro for diabetes management. He has discontinued Entresto due to cost concerns and is currently taking losartan as an alternative. Ky Moore MD [address], [place], [address], [facility] & [place] 10/14/2024 18:10:36 11/09/2024 text/html Diego Adamson is a 68-year-old male who presents for an acute visit regarding diarrhea. He reports experiencing persistent loose, watery stools with no substantial substance since approximately four days post-surgery for his knee replacement. He has not had a normal bowel movement since that time. Associated symptoms include constant nausea, which worsens shortly after eating or drinking, but no vomiting. He has no appetite and struggles to consume even water, though he can manage small amounts. He denies fever, abdominal pain, mucous or bloody stools. Diego has lost approximately 20 pounds in the past month, which coincides with the use of Mounjaro (2.5 mg weekly). He resumed Mounjaro after a three-week break and continues to take metformin (1,000 mg twice daily) and Farxiga (10 mg once daily). Blood sugar levels were last recorded at approximately 112 two months ago. He also recently completed a course of meloxicam for inflammation, with the last dose taken on Friday. states he seemed to tolerate all of these medications prior to his knee surgery without GI side effects. No one else at home has experienced similar gastrointestinal symptoms, and he denies any recent illness or exposure to infectious agents. He expresses significant weakness and fatigue, spending most of his time in bed. Ky Moore MD [address], [place], [id number], [place] - [facility] - [place] & [place] 11/11/2024 08:54:58 12/08/2024 text/html Diego Adamson is a 68-year-old male who presents for his Medicare Annual Wellness Visit. He had been sick with gastrointestinal issues from E coli recently that required a full course of treatment. States it lasted one week after that before getting back to full strength. No recurrence of symptoms has been noted, and no other individuals in his household were affected. He is currently fasting for blood work, including rechecking his A1c, which was previously recorded at 6 in July 2023. His last colonoscopy was performed a long time ago, and he remains on blood thinners. Coordination with his chain hooker, Dr. Ruiz, is necessary to determine the safety of temporarily discontinuing blood thinners for the procedure. He has a history of atrial fibrillation and ventricular tachycardia following surgery. He has experienced no new blood in stools or changes in stool consistency, and his diarrhea symptoms have resolved. He reports diminished appetite suppression with his current dose of Mounjaro, which was effective initially but has since waned. He denies any nausea or vomiting associated with the medication. His weight has fluctuated, with a recent increase to 222 pounds following a drastic loss during his gastrointestinal illness. He continues to take Farxiga and metformin and reports average blood sugar readings of approximately 110 mg/dL, with occasional readings as low as 103 mg/dL. He is due for a flu vaccination and is UTD on pneumonia vaccinations.Never smoker. Ky Moore MD [address], [place], [id number], [place] [facility] - [place] & [place] 12/08/2024 21:30:13 02/01/2025 text/html Diego Adamson is a 69-year-old male who presents for a hospital follow-up. He was admitted to the emergency room from 12/26 to 12/27 due to symptoms involving his left eye. Initially, he experienced black dots in his vision, which progressed to scrambled and blurry vision in the left eye. He reports that vision in the right eye remains normal when the left eye is closed. He has not yet been seen by an beaver trapper, as the earliest available appointment is on 02/22. He has attempted to expedite the appointment due to the urgency of his symptoms. He has a history of falls, including a recent incident where he missed three steps and fell onto concrete, injuring both shins and his knee. An X-ray was performed on the knee, but the medina was not evaluated. He reports significant tenderness in the medina area. During his hospital stay, he experienced episodes of fluctuating heart rates ranging from 25 to 160 bpm. A crash cart was used, but there was a miscommunication regarding his defibrillator. No changes were made to his medications, and he continues to take Xarelto and Tikosyn. CT and CTA scans performed during his hospital stay did not demonstrate any major blockages. Due to his pacemaker, an MRI could not be performed. A teleneurology consultation was conducted, and the neurologist recommended admission and follow-up with neurology. However, he has not yet received a call to schedule the neurology appointment. Not Available Not Available Not Available
--- OUTSIDE RECORDS SUMMARY | 2025-02-02 13:54 | XMS_ITS | Continuity of Care Document ---
Author Organization [place] - [facility] - [place] [facility] [place], [facility] and [facility] Address [address] [place] [address] Care Team Providers Care Body And Frame Man Name Role Phone [place] MOORE Primary Care Provider Assessment Encounter Date Assessment Date Assessment LastModified by Organization Details LastModified Time 12/08/2024 12/08/2024 PERSONALIZED HEALTH PLAN (COPY PROVIDED TO PATIENT) 1) Vaccines: [...] Details Appointments OV EST 20 2025 09:00A M Ky Moore MD Not available Not available Not available Lab lipid panel, serum 2024 025 [place] [facility], [address], [address], [place], [address], 12/09/2024 06:38:14 PSA, serum or plasma 2024 025 [place] [facility], [address], [address], [place], [address], 12/09/2024 06:38:15 HbA1c (hemoglob in A1c), blood 2024 025 [place] [facility], [address], [address], [place], [address], 12/09/2024 06:38:15 TSH + free T4, serum 2024 025 [place] [facility], [address], [address], [place], [address], 12/09/2024 06:38:13 CBC w/ auto diff 2024 025 [place] [facility], [address], [address], [place], [address], 12/09/2024 06:38:13 CMP, serum or plasma 2024 025 [place] [facility], [address], [address], [place], [address], 12/09/2024 06:38:14 Referral None recorded. Procedures None recorded. Surgeries None recorded. Imaging None recorded. Medication Orders atorvasta tin 80 mg tablet 2024 025 [facility], [address] [place] [address], [id number], 12/08/2024 10:28:24 Mounjaro 5 mg/0.5 mL subcutane ous pen injector 2024 025 [facility], [address] [place] [address], [id number], 02/01/2025 10:13:59 metformin 850 mg tablet 2024 025 [facility], [address] [place] [address], [id number], 12/09/2024 10:13:02 Patient TargetsNo targets recorded. Patient Instructions Encounter Date Encounter Id Patient Instructions Last Modified By Organization Details Last Modified Time 12/08/2024 [id number] advance directives: care instructions [email or web address] Not available 12/08/2024 09:47:15 well visit, over 65: care instructions [email or web address] Not available 12/08/2024 09:47:14 Health Maintenance Recommendations: (5-10 year screening/prevent ion plan) [email or web address] Not available 12/08/2024 09:26:49 Reason for Referral None Reported. Results Created Date Observation Date Name Description Value Unit Range Abnormal Flag Note LastModifiedBy Organization Detail LastModifiedTime 11/10/19 25 11/09/2024 HbA1c (hemo globi n A1c), blood HbA1c 6.0 Not Available [facility] [address], [place], [address], 11/09/2024 14:42:28 11/11/19 25 11/11/2024 GASTR OINTE MANISHA L PANEL ,STL PCR campylobacte r NOT DETECT ED not detect ed CAMPY LOBAC TER AND CRYPT OSPOR IDIUM RESUL TS WILL BE CONFI RMED BEFOR E FINAL RESUL TS REPOR OLMAN. Not Available [facility] [address], [place], [address], 11/11/2024 13:15:35 11/11/19 25 11/11/2024 GASTR OINTE MANISHA L PANEL ,STL PCR C difficile toxin A/B NOT DETECT ED not detect ed Not Available [facility] [address], [place], [address], 11/11/2024 13:15:35 11/11/19 25 11/11/2024 GASTR OINTE MANISHA L PANEL ,STL PCR plesiomonas shigelloides NOT DETECT ED not detect ed Not Available [facility] [address], [place], [address], 11/11/2024 13:15:35 11/11/19 25 11/11/2024 GASTR OINTE MANISHA L PANEL ,STL PCR salmonella NOT DETECT ED not detect ed Not Available [facility] [address], [place], [address], 11/11/2024 13:15:35 11/11/19 25 11/11/2024 GASTR OINTE MANISHA L PANEL ,STL PCR vibrio NOT DETECT ED not detect ed Not Available [facility] [address], [place], [address], 11/11/2024 13:15:35 11/11/19 25 11/11/2024 GASTR OINTE MANISHA L PANEL ,STL PCR vibrio cholerae NOT DETECT ED not detect ed Not Available [facility] [address], [place], [address], 11/11/2024 13:15:35 11/11/19 25 11/11/2024 GASTR OINTE MANISHA L PANEL ,STL PCR yersinia enterocoliti ca NOT DETECT ED not detect ed Not Available [facility] [address], [place], [address], 11/11/2024 13:15:35 11/11/19 25 11/11/2024 GASTR OINTE MANISHA L PANEL ,STL PCR enteroaggreg ative E coli NOT DETECT ED not detect ed Not Available [facility] [address], [place], [address], 11/11/2024 13:15:35 11/11/19 25 11/11/2024 GASTR OINTE MANISHA L PANEL ,STL PCR enteropathog enic E coli DETECT ED not detect ed delta Not Available [facility] [address], [place], [address], 11/11/2024 13:15:35 11/11/19 25 11/11/2024 GASTR OINTE MANISHA L PANEL ,STL PCR enterotoxige petar E coli lt/st NOT DETECT ED not detect ed Not Available [facility] [address], [place], [address], 11/11/2024 13:15:35 11/11/19 25 11/11/2024 GASTR OINTE MANISHA L PANEL ,STL PCR shiga-toxin- producing E coli NOT DETECT ED not detect ed Not Available [facility] [address] [place], [address], 11/11/2024 13:15:35 11/11/19 25 11/11/2024 GASTR OINTE MANISHA L PANEL ,STL PCR E coli O157 N/A not detect ed Not Available [facility] [address], [place], [address], 11/11/2024 13:15:35 11/11/19 25 11/11/2024 GASTR OINTE MANISHA L PANEL ,STL PCR shigella/ent eroinvasive E coli NOT DETECT ED not detect ed Not Available [facility] [address], [place], [address], 11/11/2024 13:15:35 11/11/19 25 11/11/2024 GASTR OINTE MANISHA L PANEL ,STL PCR cryptosporid ium NOT DETECT ED not detect ed Not Available [facility] [address] [place], [address], 11/11/2024 13:15:35 11/11/19 25 11/11/2024 GASTR OINTE MANISHA L PANEL ,STL PCR cyclospora cayetanensis NOT DETECT ED not detect ed Not Available [facility] [address] [place], [address], 11/11/2024 13:15:35 11/11/19 25 11/11/2024 GASTR OINTE MANISHA L PANEL ,STL PCR entamoeba histolytica NOT DETECT ED not detect ed Not Available [facility] [address] [place], [address], 11/11/2024 13:15:35 11/11/19 25 11/11/2024 GASTR OINTE MANISHA L PANEL ,STL PCR giardia lamblia NOT DETECT ED not detect ed Not Available [facility] [address], [place], [address], 11/11/2024 13:15:35 11/11/19 25 11/11/2024 GASTR OINTE MANISHA L PANEL ,STL PCR adenovirus F 40/41 NOT DETECT ED not detect ed Not Available [facility] [address], [place], [address], 11/11/2024 13:15:35 11/11/19 25 11/11/2024 GASTR OINTE MANISHA L PANEL ,STL PCR astrovirus NOT DETECT ED not detect ed Not Available [facility] [address], [place], [address], 11/11/2024 13:15:35 11/11/19 25 11/11/2024 GASTR OINTE MANISHA L PANEL ,STL PCR norovirus GI/gii NOT DETECT ED not detect ed Not Available [facility] [address] [facility] [address], [place], [address], 11/11/2024 13:15:35 11/11/19 25 11/11/2024 GASTR OINTE MANISHA L PANEL ,STL PCR rotavirus A NOT DETECT ED not detect ed Not Available [facility] [address], [place], [address], 11/11/2024 13:15:35 11/11/19 25 11/11/2024 GASTR OINTE [...] stool sampl es are not recom lauro jessica. Rhett eous resul ts may occur from [...] rever se trans cript ase Not Available [facility] [address], [place], [address], 11/11/2024 13:15:35 12/09/1912/09/2024 TSH+F REE T4 TSH 2.420 uIU/m L 0.450- 4.500 normal Not Available [facility] ([facility]) [address] [place], [address], 12/09/2024 06:38:13 12/09/1912/09/2024 TSH+F REE T4 T4,free(dire ct) 0.97 NG/dL 0.82-1 .77 normal Not Available [facility] ([facility]) [address] [place], [address], 12/09/2024 06:38:13 12/09/1912/09/2024 CBC WITH DIFFE RENTI AL/PL ATELE T WBC 6.2 x10e3 /uL 3.4-10 .8 normal Not Available [facility] ([facility]) [address] [place], [address], 12/09/2024 06:38:13 12/09/19 25 12/09/2024 CBC WITH DIFFE RENTI AL/PL ATELE T RBC 4.72 x10e6 /uL 4.14-5 .80 normal Not Available [facility] ([facility]) [address] [facility], [place], [address], 12/09/2024 06:38:13 12/09/1912/09/2024 CBC WITH DIFFE RENTI AL/PL ATELE T hemoglobin 14.3 g/dL 13.0-1 7.7 normal Not Available [facility] ([facility]) [address] [facility], [place], [address], 12/09/2024 06:38:13 12/09/1912/09/2024 CBC WITH DIFFE RENTI AL/PL ATELE T hematocrit 45.4 % 37.5-5 1.0 normal Not Available [facility] ([facility]) [address] [facility], [place], [address], 12/09/2024 06:38:13 12/09/1912/09/2024 CBC WITH DIFFE RENTI AL/PL ATELE T MCV 96 fL 79-97 normal Not Available [facility] ([facility]) [address] [facility], [place], [address], 12/09/2024 06:38:13 12/09/1912/09/2024 CBC WITH DIFFE RENTI AL/PL ATELE T MCH 30.3 pg 26.6-3 3.0 normal Not Available [facility] ([facility]) [address] [place], [address], 12/09/2024 06:38:13 12/09/1912/09/2024 CBC WITH DIFFE RENTI AL/PL ATELE T MCHC 31.5 g/dL 31.5-3 5.7 normal Not Available [facility] ([facility]) [address] [place], [address], 12/09/2024 06:38:13 12/09/19 25 12/09/2024 CBC WITH DIFFE RENTI AL/PL ATELE T RDW 12.7 % 11.6-1 5.4 Not Available [facility] ([facility]) [address] [facility], [place], [address], 12/09/2024 06:38:13 12/09/1912/09/2024 CBC WITH DIFFE RENTI AL/PL ATELE T platelets 215 x10e3 /uL 150-45 0 normal Not Available [facility] ([facility]) [address] [facility], [place], [address], 12/09/2024 06:38:13 12/09/1912/09/2024 CBC WITH DIFFE RENTI AL/PL ATELE T neutrophils 57 % not estab. normal Not Available [facility] ([facility]) [address] [facility], [place], [address], 12/09/2024 06:38:13 12/09/19 25 12/09/2024 CBC WITH DIFFE RENTI AL/PL ATELE T lymphs 31 % not estab. normal Not Available [facility] ([facility]) [address] [facility], [place], [address], 12/09/2024 06:38:13 12/09/1912/09/2024 CBC WITH DIFFE RENTI AL/PL ATELE T monocytes 8 % not estab. normal Not Available [facility] ([facility]) [address] [facility], [place], [address], 12/09/2024 06:38:13 12/09/1912/09/2024 CBC WITH DIFFE RENTI AL/PL ATELE T eos 3 % not estab. normal Not Available [facility] ([facility]) [address] [facility], [place], [address], 12/09/2024 06:38:13 12/09/1912/09/2024 CBC WITH DIFFE RENTI AL/PL ATELE T basos 1 % not estab. normal Not Available [facility] ([facility]) [address] 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 0 normal Not Available [facility] ([facility]) [address] [place], [address], 12/09/2024 06:38:13 12/09/19 25 12/09/2024 CBC WITH DIFFE RENTI AL/PL ATELE T lymphs (absolute) 1.9 x10e3 /uL 0.7-3. 1 normal Not Available [facility] ([facility]) [address] [place], [address], 12/09/2024 06:38:13 12/09/19 25 12/09/2024 CBC WITH DIFFE RENTI AL/PL ATELE T monocytes(ab solute) 0.5 x10e3 /uL 0.1-0. 9 normal Not Available [facility] ([facility]) [address] [place], [address], 12/09/2024 06:38:13 12/09/19 25 12/09/2024 CBC WITH DIFFE RENTI AL/PL ATELE T eos (absolute) 0.2 x10e3 /uL 0.0-0. 4 normal Not Available [facility] ([facility]) [address] [place], [address], 12/09/2024 06:38:13 12/09/19 25 12/09/2024 CBC WITH DIFFE RENTI AL/PL ATELE T baso (absolute) 0.0 x10e3 /uL 0.0-0. 2 normal Not Available [facility] ([facility]) [address] [facility], [place], [address], 12/09/2024 06:38:13 12/09/19 25 12/09/2024 CBC WITH DIFFE RENTI AL/PL ATELE T immature granulocytes 0 % not estab. Not Available [facility] ([facility]) [address] [facility], [place], [address], 12/09/2024 06:38:13 12/09/19 25 12/09/2024 CBC WITH DIFFE RENTI AL/PL ATELE T immature grans (abs) 0.0 x10e3 /uL 0.0-0. 1 Not Available [facility] ([facility]) [address] 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, [place], [address], 12/09/2024 06:38:13 12/09/1912/09/2024 CBC WITH DIFFE RENTI AL/PL ATELE T hematology comments: COAL PULVERIZER OPERATOR Not Available [facility] ([facility]) [address] [facility], [place], [address], 12/09/2024 06:38:13 12/09/1912/09/2024 COMP. METAB OLIC PANEL (14) glucose 115 mg/dL 70-99 above high normal Not Available [facility] ([facility]) [address] [facility], [place], [address], 12/09/2024 06:38:14 12/09/19 25 12/09/2024 COMP. METAB OLIC PANEL (14) BUN 12 mg/dL 8-27 normal Not Available [facility] ([facility]) [address] [facility], [place], [address], 12/09/2024 06:38:14 12/09/19 25 12/09/2024 COMP. METAB OLIC PANEL (14) creatinine 0.84 mg/dL 0.76-1 .27 normal Not Available [facility] ([facility]) [address] [place], [address], 12/09/2024 06:38:14 12/09/19 25 12/09/2024 COMP. METAB OLIC PANEL (14) BUN/creatini ne ratio 14 10-24 normal Not Available [facility] ([facility]) [address] [place], [address], 12/09/2024 06:38:14 12/09/19 25 12/09/2024 COMP. METAB OLIC PANEL (14) sodium 142 mmol/ L 134-14 4 normal Not Available [facility] ([facility]) [address] [facility], [place], [address], 12/09/2024 06:38:14 12/09/19 25 12/09/2024 COMP. METAB OLIC PANEL (14) potassium 5.0 mmol/ L 3.5-5. 2 normal Not Available [facility] ([facility]) [address] [place], [address], 12/09/2024 06:38:14 12/09/19 25 12/09/2024 COMP. METAB OLIC PANEL (14) chloride 105 mmol/ L 96-106 normal Not Available [facility] ([facility]) [address] [facility], [place], [address], 12/09/2024 06:38:14 12/09/19 25 12/09/2024 COMP. METAB OLIC PANEL (14) carbon dioxide, total 25 mmol/ L 20-29 normal Not Available [facility] ([facility]) [address] [place], [address], 12/09/2024 06:38:14 12/09/19 25 12/09/2024 COMP. METAB OLIC PANEL (14) calcium 9.5 mg/dL 8.6-10 .2 normal Not Available [facility] ([facility]) [address] [place], [address], 12/09/2024 06:38:14 12/09/19 25 12/09/2024 COMP. METAB OLIC PANEL (14) protein, total 6.6 g/dL 6.0-8. 5 normal Not Available [facility] ([facility]) [address] [place], [address], 12/09/2024 06:38:14 12/09/19 25 12/09/2024 COMP. METAB OLIC PANEL (14) albumin 4.2 g/dL 3.9-4. 9 normal Not Available [facility] ([facility]) [address] [place], [address], 12/09/2024 06:38:14 12/09/19 25 12/09/2024 COMP. METAB OLIC PANEL (14) globulin, total 2.4 g/dL 1.5-4. 5 Not Available [facility] ([facility]) [address] [place], [address], 12/09/2024 06:38:14 12/09/19 25 12/09/2024 COMP. METAB OLIC PANEL (14) bilirubin, total 0.5 mg/dL 0.0-1. 2 normal Not Available [facility] ([facility]) [address] [place], [address], 12/09/2024 06:38:14 12/09/19 25 12/09/2024 COMP. METAB [...] 129 48 - 129 Not Available [facility] ([facility]) [address] [place], [address], 12/09/2024 06:38:14 12/09/19 25 12/09/2024 COMP. METAB OLIC PANEL (14) AST (SGOT) 18 IU/L 0-40 normal Not Available [facility] ([facility]) [address] [place], [address], 12/09/2024 06:38:14 12/09/19 25 12/09/2024 COMP. METAB OLIC PANEL (14) ALT (SGPT) 16 IU/L 0-44 normal Not Available [facility] ([facility]) [address] [place], [address], 12/09/2024 06:38:14 12/09/19 25 12/09/2024 LIPID PANEL cholesterol, total 104 mg/dL 100-19 9 normal Not Available [facility] ([facility]) [address] [place], [address], 12/09/2024 06:38:14 12/09/19 25 12/09/2024 LIPID PANEL triglyceride s 81 mg/dL 0-149 normal Not Available [facility] ([facility]) [address] [place], [address], 12/09/2024 06:38:14 12/09/19 25 12/09/2024 LIPID PANEL HDL cholesterol 47 mg/dL >39 normal Not Available [facility]) [address] [place], [address], 12/09/2024 06:38:14 12/09/19 25 12/09/2024 LIPID PANEL VLDL cholesterol olivia 16 mg/dL 5-40 Not Available [facility] ([facility]) [address] [place], [address], 12/09/2024 06:38:14 12/09/19 25 12/09/2024 LIPID PANEL LDL chol calc ([facility]) 41 mg/dL 0-99 Not Available [facility] ([facility]) [address] 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, [place], [address], 12/09/2024 06:38:14 12/09/1912/08/2024 PSA TOTAL (REFL EX TO FREE) reflex criteria COMMEN T The perce nt free PSA is perfo rmed on a refle x basis only when the total PSA is betwe en 4.0 and 10.0 ng/mL . Not Available [facility] ([facility]) [address] [facility], [place], [address], 12/09/2024 06:38:15 12/09/1912/09/2024 PSA TOTAL (REFL EX [...] kits canno t be used inter cook eably . Resul ts canno t be inter prete d as absol [place] evide nce of the prese nce or absen ce of ileana gilman se. Not Available [facility] ([facility]) [address] [facility], [place], [address], 12/09/2024 06:38:15 12/09/19 25 12/09/2024 HEMOG LOBIN A1C hemoglobin A1C 6.2 % 4.8-5. 6 above high normal Predi abete s: 5.7 - 6.4 Diabe norberto: >6.4 Glyce juliet contr ol for adult s with diabe norberto: <7.0 Not Available [facility] ([facility]) [address] [facility], [place], [address], 12/09/2024 06:38:15 Result Notes None recorded. Problems Name Problem SNOMED Code Status Onset Date Resolution Date Notes Provider Name and Address Organization Details Recorded Time Blurring of visual image 872343404 [place] [facility] [place] 5 15:13:59 Type 2 diabetes mellitus 47110490 Active 2022 Ky Moore MD [address], [place], [address] , [place] [facility] [place] 3 17:51:11 Hyperlipidemi a 24966658 Active 2022 Ky Moore MD [address], [place], [address] , [facility] - [facility] [place] 3 17:51:13 Essential hypertension 61773429 Active 2022 Ky Moore MD [address], [place], [address] , [place] [facility] [place] 3 17:51:27 Congestive heart failure 46823849 Active 2022 Ky Moore MD [address], [place], [address] , [place] [facility] [place] [facility] [place] 3 16:16:58 Insomnia 592612211 Active 2023 Ky Moore MD [address], [place], [address] , [place] [facility] [place] & [place] 4 16:35:37 Paroxysmal atrial fibrillation 378106369 Active 2023 Ky Moore MD [address], [place], [address] , [place] [facility] [place] [facility] [place] 4 15:47:25 Problem Notes None recorded. Procedures Surgical History Date Name Laterality Status Provider Name and Address Organization Details Recorded Time 5 total replacement of left knee joint completed Meredith Cota [place] [facility] [place] [facility] [place] 11/03/2024 11:25:16 5 CABG completed Morenita Brown [place] - [facility] & [place] 07/12/2023 12:19:45 cardiac pacemaker procedure completed Morenita Rothamer [place] - [facility] [place] & [place] 07/12/2023 12:20:35 Imaging Results None recorded. Procedure Notes None recorded. 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 Serial Number Lot Number Status Provider Name and Address Organization Details Recorded Time Cardiac pacemaker FDA Y Morenita Rothamer null, [place] [facility] [place] & [place] 05/20/2023 10:15:41 Allergies Allergen ID Allergen Name Allergen Category Reaction Reaction Severity Criticality Documentation Date Start Date Code Code System Note Provider Name and Address Organization Details Recorded Time 524911 No known allergy (situatio n) Not available Not available Not available Not available 02/01/2025 11301 6003 SNOMED [place] Cash[place] null, [place] [facility] [place] [facility] [place] 5 15:13:58 Medications Name Sig Start Date Stop [...] Updated DateTime 12/08/2024 175.26 cm 32.9 kg/m2 239435.3 1 g 73 /min 143/85 mm[Hg] Kimberly Yeh [facility] & [place] 09:36:47 Social History Question Answer Notes LastModified by Yamisee Details LastModified Time Tobacco Smoking Status Never Smoker Meredith Cipriano [facility], [facility] & [place] 11/03/2024 11:21:20 Do You Have An Advance Directive? No [email or web address] Information not available 11/03/2024 Are You Blind Or Do You Have Difficulty Seeing? No [email or web address] Information not available 11/03/2024 What Was The Date Of Your Most Recent Tobacco Screening? 09/13/2024 [email or web address] Information not available 11/03/2024 Are You Passively Exposed To Smoke? No [email or web address] Information not available 11/03/2024 Sex: Unknown Functional Status Question Answer Note LastModified by Organizat [email or web address] Details LastModified Time Do you use any illicit or recreational drugs? No [email or web address] Information not available 11/03/2024 What is your level of alcohol consumption? None [email or web address] Information not available 11/03/2024 What is your exercise level? Occasional [email or web address] Information not available 11/03/2024 Mental Status Question Answer Note LastModified by Organization D etails LastModified Time Do you feel stressed (tense, restless, nervous, or anxious, or unable to sleep at night)? [id number] [email or web address] Information not available 11/03/2024 Family History Relationship Description Onset Age of this Age Resolved Age Notes LastModified by Organization Details LastModified Time Father Heart disease [email or web address] Not available 2023 12:17:55 Mother Diabetes mellitus [email or web address] Not available 2024 15:02:52 Medical History Condition Response Anxiety Disorder Y Diabetes Y Coronary Artery Disease Y Congestive Heart Failure (CHF) Y Stroke Y Depression Y Reflux/GERD Y High Cholesterol Y Heart Attack ([place]) Y Heart Disease Y Deep Vein Thrombosis Y Hypertension Y Immunizations Vaccine Type Date Status Note Provider Deonte lei and Address Organization Details Recorded Time Influenza, adjuvanted, quadrivalent, PF 4 completed Ky Moore MD [address] , [place], [address], [place] [facility] [place] 05/01/2023 16:43:56 Influenza, adjuvanted, trivalent, PF 4 completed Ky Moore MD [address] [facility] [address] [place] - [facility] & [place] 02/23/2024 21:06:28 Pneumococcal conjugate PCV20, polysaccharide VOO241 conjugate, adjuvant, PF 4 completed Ky Moore MD [address] [place], [place], [id number] [place] [facility] & [place] 02/23/2024 21:06:28 Influenza, adjuvanted, trivalent, PF 5 completed Kimberly Yeh [facility] [place] - [facility] & [place] 12/08/2024 10:36:06 Past Encounters Encounter ID Performer Location Encounter Start Date Encounter Closed Date Diagnosis/Indication Diagnosis SNOMED-CT Code Diagnosis ICD10 Code Diagnosis IMO Codes Diagnosis Note [id number] Ky Moore MD [facility] and HEBERT ramirez [address] [place] [address] 12/08/2024 09:25:32 12/08/2024 10:26:34 Adult health examination [id number] Z00.00 Patient is due for screening colonoscop y with Dr. Choi. plans to talk with his cardiologi st figueroa at his appt in January since he is currently on blood thinners s/p ablation. will call for colonoscop y order if he gets cardiology clearance for this. Type 2 antonia betes mellitus 74005383 E11.9 Increasing Mounjaro to 5mg and decreasing Metformin to 850mg dosing.Alayna stearns unable to give urine sample in clinic today for urine albumin. Mixed hyperlipidemia 267 557067 E78.2 Active immunization 3387 9002 Z23 [id number] Screening for malignant neoplasm of prostate [id number] Z12.5 [id number] [facility] Teo ram[facility] [address] [place] [address] 11/09/2024 13:31:10 11/09/2024 15:06:15 Diarrhea 72318824 R19.7 [id number] Nausea [id number] R11.0 42309 Type 2 antonia betes mellitus 11468706 E11.9 Holding the Mounjaro at this time due to possible side effects. Health Concerns Section Related Observation LastModified by Organization Detai ls LastModified Time None Recorded Concern Status LastModified by Organization Details LastModified Time None Recorded Payers Encounter Date Sequence Insurance Name Policy Number Policy Jack Covered Member ID Jack Member ID Guarantor Name 12/08/2024 1 MARIE-ROCAEL: ION SALAZAR OF [facility] MEDIBLUE ACCESS (MEDICARE REPLACEMENT REGIONAL O) [id number] Diego Adamson [id number] Diego Reneecutt Notes Date Note Type Note Provider Name and Address Organization Details Recorded Time 12/08/2024 text/html Diego Adamson is a 68-year-old [...] remains on blood thinners. Coordination with his freight hustler, Dr. Ruiz, is necessary to determine the [...] on pneumonia vaccinations.Never smoker. Ky Moore MD [address] [facility], [place], [address], [facility] - [place] & [place] 12/08/2024 21:30:13
--- OUTSIDE RECORDS SUMMARY | 2025-02-02 13:54 | XMS_ITS | Encounter Summary ---
Author Organization [employer] ([place], [place], [place], [place]) Address [address] [place] [address] Care Team Providers Care Program Associate Name Role Phone Teo Yoo MD Primary Care Provider [phone]- [phone] Reason for Visit * Reason Comments Medication Refill Encounter Details Date Type Department Care Team (Late st Contact Info) Description 07/17/2023 Refill [facility] Cardiology [address] [phone] Keyona Concepcion PA-C [address] [facility] [address] [place] [address] Social History Tobacco Use Types Packs/Day Years [...] shut off services in your home? No 07/07/2023 Food Insecurity Answer Date Recorded Within the past 12 months, y ou worried that your food would run out before you got money to buy more. Never true 07/07/2023 Within the past 12 months, t he food you bought just didn't last and you didn't have money to get more. Never true 07/07/2023 Transportation Needs Answer Date Record ed In the past 12 months, has l ack of reliable transportation kept you from medical appointments, meetings, work or from getting things needed for daily living? No 07/07/2023 Financial Resource Strain Answer Date R ecorded How hard is it for you to pa y for the very basics like food, housing, medical care, and heating? Would you say it is: Not hard at all 07/07/2023 Employment Answer Date Recorded Do you want help finding or keeping work or a job? I do not need or want help 07/07/2023 Family and Community Support Answer Arvin e Recorded If for any reason you need h elp with day-to-day activities such as bathing, preparing meals, shopping, managing finances, etc., do you get the help you need? I get all the help I need 07/07/2023 Feeling Lonely or Isolated 0 07/06 Educational Attainment Answer Date Ok rded Do you speak a language other than Sinhala at [facility]? No 07/07/2023 Do you want help with school or training? For example, starting or completing job training or getting a high school diploma, GED or equivalent. No 07/07/2023 Physical Activity Answer Date Recorded Number of minutes of exercise per week 0 07/07/2023 Substance Use Answer Date Recorded How many times in the past y ear have you used prescription drugs for non-medical reasons? Never 07/07/2023 How many times in the past year have you used [place] legal drugs? Never 07/07/2023 Sex and Gender Information Value Date Recorded Sex Assigned at Not on file Legal Sex Male 1:10 PM CDT Gender Identity Not on file Sexual Orientation Not on file documented as of this encounter Plan of Treatment Upcoming Encounters Date Type Department Care Team (Late st Contact Info) Description 02/08/2025 1:45 PM EST Office Visit [facility] Cardiology [address] [place], [place] [address] Christina Almonte MD [address] [place] [address] 04/05/2025 12:30 PM EST Office Visit [facility] Electrophysiology [address] [place] [address] [place] [address] [place] [address] [address] [place] [address] documented as of this encounter Visit Diagnoses Not on filedocumented in this encounter Care Teams Program Associate Relationship Specialty Start Date End Date Teo Yoo MD [address] [place] [address] [address] [place] [address] PCP - General General Internal Medicine 02/06/22 documented as of this encounter
--- OUTSIDE RECORDS SUMMARY | 2025-02-02 13:54 | XMS_ITS | Encounter Summary ---
Author Organization [employer] ([place], [place], [place], [place]) Address [address] [place] [address] Care Team Providers Care Concrete Float Maker Name Role Phone Teo Yoo MD Primary Care Provider [phone]- [phone] Reason for Visit * Reason Comments Medication Refill Encounter Details Date Type Department Care Team (Late st Contact Info) Description 07/17/2023 Refill [facility] Electrophysiology [address] [place] [phone] Kendall Malik MD [address] [place] [address] [address] [place] [address] Social History Tobacco Use Types Packs/Day Years [...] Do you speak a language other than Spanish at [facility]? No 07/07/2023 Do you want help with [...] Description 02/08/2025 1:45 PM EST Office Visit [facility] Cardiology [address] [place], [place] [id number] Christina Almonte MD [address] [place] [address] 04/05/2025 12:30 PM EST Office Visit [facility] Electrophysiology [address] [place] [address] [place] [address] [place] [address] [address] [place] [address] documented as of this encounter Visit Diagnoses Not on filedocumented in this encounter Care Teams Concrete Float Maker Relationship Specialty Start Date End Date Teo Yoo MD [address] [place] [address] [address] [place] [address] PCP - General General Internal Medicine 02/06/22 documented as of this encounter
== END 2025-02-02 23:59 | disposition home or self-care (01) ==
LOC: RAD 13:50
PROVIDERS: PCP Pediatrics; Visit Provider Pediatrics
DX: M79.662 Pain in left lower leg (principal)
CPT/HCPCS: 73590